=== PATIENT | male | born 1955 | race Hispanic/Latino ===

== ENCOUNTER 2017-06-29 23:42 | Observation (INO) | payer MEDICARE, OTHER ==
[2017-06-29 23:57] VITALS: BMI 21.7
--- NOTE | 2017-06-30 00:09 | ED PDOC ---
Arrival/HPI - General Time Seen by Provider: 06/29/17 23:44 Historian: Patient, Family - History of Present Illness Narrative History of Present Illness (Text): 06/30/17 00:06 Roberto Antoine is a 62 year old male, whose past medical history includes paraplegia, Burkitt's lymphoma, hypertension, GERD, renal failure, obstructive failure, anemia, depression, and anxiety, who presents to the emergency department brought in by EMS complaining of chest pain. Relative states patient began complaining of mid-sternal chest pain at approximately 22:40 tonight. Patient denies any fever, chills, shortness of breath, abdominal pain, nausea, vomiting, diarrhea, urinary symptoms, back pain, neck pain, headache, dizziness , or any other complaints. Symptom Onset: Gradual Symptom Course: Unchanged Activities at Onset: Light Context: Home Past Medical History - Provider Review Nursing Documentation Reviewed: Yes - Infectious Disease Hx of Infectious Diseases: None - Tetanus Immunization Tetanus Immunization: Unknown - Cardiac Hx Cardiac Disorders: Yes Hx Hypertension: Yes - Pulmonary Hx Respiratory Disorders: Yes Hx Sleep Apnea: Yes - Neurological Hx Neurological Disorder: No - Renal Hx Renal Disorder: Yes Hx Pyelonephritis: Yes Hx Renal Failure: Yes - Hematological/Oncological Hx Blood Transfusions: No Hx Blood Transfusion Reaction: No - Musculoskeletal/Rheumatological Hx Musculoskeletal Disorders: Yes Hx Arthritis: Yes Hx Gout: Yes Hx Unsteady Gait: Yes Other/Comment: right hand flaccidity and weakness, left foot drop - Gastrointestinal Hx Gastroesophageal Reflux: Yes - Genitourinary/Gynecological Other/Comment: solorio catheter in from son - Psychiatric Hx Psychophysiologic Disorder: Yes Hx Anxiety: Yes Hx Depression: Yes Hx Substance Use: No Other/Comment: insomnia - Past Surgical History Past Surgical History: Non-Contributing - Anesthesia Hx Anesthesia Reactions: No Hx Malignant Hyperthermia: No - Suicidal Assessment Feels Threatened In Home Enviroment: No Family/Social History - Physician Review Nursing Documentation Reviewed: Yes Family/Social History: Unknown Family HX Smoking Status: Never Smoked Hx Alcohol Use: No Hx Substance Use: No Hx Substance Use Treatment: No Allergies/Home Meds Allergies/Adverse Reactions: Allergies baclofen Allergy (Verified 06/30/17 00:24) RASH zolpidem [From Ambien] Allergy (Verified 06/30/17 00:24) RASH Home Medications: Home Meds Medication Instructions Recorded Confirmed Bupropion Hydrochloride [Bupropion 150 mg PO DAILY 10/10/12 11/27/12 Hydrochloride Xl] Acetaminophen [Tylenol] 650 mg PO Q4 PRN 11/27/12 11/27/12 Amlodipine Besylate 5 mg PO DAILY 11/27/12 11/27/12 Carvedilol 25 mg PO DAILY 11/27/12 11/27/12 Clonazepam 1 mg PO HS 11/27/12 11/27/12 Gabapentin 100 mg PO HS 11/27/12 11/27/12 Magnesium Oxide 400 mg PO DAILY 11/27/12 11/27/12 Pantoprazole Sodium [Protonix] 40 mg PO DAILY 11/27/12 11/27/12 Polyethylene Glycol 3350 [Miralax] 11/27/12 11/27/12 Potassium Chloride [K-Dur 20] 20 meq PO DAILY 11/27/12 11/27/12 Sodium Chloride [Sodium Chloride 11/27/12 11/27/12 1000 ml] Vitamin B Complex/Vit C/Folic 1 tab PO DAILY 11/27/12 11/27/12 [Nephro-Sharonda Tab] traZODone [Desyrel] 50 mg PO HS PRN 11/27/12 11/27/12 Review of Systems - Physician Review All systems were reviewed & negative as marked: Yes - Review of Systems Constitutional: Normal. absent: Fevers Eyes: Normal ENT: Normal Respiratory: Normal. absent: SOB, Cough Cardiovascular: Chest Pain Gastrointestinal: Normal. absent: Abdominal Pain, Diarrhea, Nausea, Vomiting Genitourinary Male: Normal. absent: Dysuria, Frequency, Hematuria, Urinary Output Changes Musculoskeletal: Normal. absent: Back Pain, Neck Pain Skin: Normal. absent: Rash Neurological: Normal. absent: Headache, Dizziness Endocrine: Normal Hemo/Lymphatic: Normal Psychiatric: Normal Physical Exam Vital Signs Reviewed: Yes Vital Signs Temp Pulse Resp BP Pulse Ox 06/30/17 02:44 83 17 101/63 100 06/30/17 00:17 98.7 F 87 18 86/41 L 99 Temperature: Afebrile Blood Pressure: Normal Pulse: Regular Respiratory Rate: Normal Appearance: Positive for: Well-Appearing, Non-Toxic, Comfortable Pain Distress: None Mental Status: Positive for: Alert and Oriented X 3 - Systems Exam Head: Present: Atraumatic, Normocephalic Pupils: Present: PERRL Extroacular Muscles: Present: EOMI Conjunctiva: Present: Normal Mouth: Present: Moist Mucous Membranes Neck: Present: Normal Range of Motion Respiratory/Chest: Present: Clear to Auscultation, Good Air Exchange. No: Respiratory Distress, Accessory Muscle Use Cardiovascular: Present: Regular Rate and Rhythm, Normal S1, S2. No: Murmurs Abdomen: No: Tenderness, Distention, Peritoneal Signs Back: Present: Normal Inspection Upper Extremity: No: Cyanosis, Edema Lower Extremity: No: Edema Neurological: Present: GCS=15, CN II-XII Intact, Other (Partial contracture of the extremities) Skin: Present: Warm, Dry, Normal Color. No: Rashes Psychiatric: Present: Alert Medical Decision Making ED Course and Treatment: 06/30/17 00:06 Impression: 62 year old male complaining of mid-sternal chest pain since 22:40 today. Plan: -- EKG -- Chest X-Ray -- Labs, cardiac enzymes -- Reassess and disposition Progress Notes: Reviewed EKG, NSR at 85 bpm. Non-specific T wave changes. 06/30/17 01:44 Case discussed with medical equipment technician telephone solicitor supervisor, who is aware and agrees with plan. Case discussed with Dr. Littlejohn, paediatric thoracic physician, who is aware and agrees to evaluate pt. 06/30/17 01:52 Chest X-Ray reviewed, shows no acute processes. 06/30/17 02:[address] Littlejohn, who evaluated pt in ER. States pt can go to Telemetry. 06/30/17 03:[address] Mary Ann Grossman, who is aware and agrees with plan. Accepts pt in to his service. Pt will go to Telemetry observation for chest pain. Requests Dr. Hubbard and Dr. Hand on consult. - Lab Interpretations Lab Results: 06/30/17 00:35 06/30/17 00:35 Lab Results 06/30/17 00:35: WBC 21.3 H, RBC 2.44 L, Hgb 8.5 L, Hct 24.6 L, MCV 100.8, MCH 34.8, MCHC 34.6, RDW 13.6, Plt Count 133, MPV 8.9 06/30/17 00:35: Sodium 142, Potassium 4.1, Chloride 98, Carbon Dioxide 25, Anion Gap 23 H, BUN 122 H*, Creatinine 6.1 H, Est GFR ( Amer) 11, Est GFR (Non-Af Amer) 9, Random Glucose 115 H, Calcium 9.6, Total Bilirubin 0.6, AST 25, ALT 18, Alkaline Phosphatase 76, Lactate Dehydrogenase 245 L, Total Creatine Kinase 28 L, Troponin I < 0.01 D, Total Protein 7.0, Albumin 3.5, Globulin 3.4, Albumin/Globulin Ratio 1.0 L 06/30/17 00:35: PT 11.9, INR 1.04, APTT 28.1 I have reviewed the lab results: Yes - RAD Interpretation Radiology Orders: 06/30/17 00:11 CHEST PORTABLE [RAD] Stat Can Coverer: ED Physician - EKG Interpretation Interpreted by ED Physician: Yes Type: 12 lead EKG - Medication Orders Current Medication Orders: Discontinued Medications Aspirin (Aspirin) 325 mg PO ONCE STA Stop: 06/30/17 00:13 Last Admin: 06/30/17 00:38 Dose: Sodium Chloride (Sodium Chloride 0.9%) 500 mls @ 500 mls/hr IV .Q1H STA Stop: 06/30/17 01:35 Last Admin: 06/30/17 01:03 Dose: 500 mls/hr eMAR Start Stop Document 06/30/17 01:03 IT (Rec: 06/30/17 01:03 IT [id number]) Intravenous Solution Start Date 06/30/17 Start Time 01:03 End Date 06/30/17 Sodium Chloride (Sodium Chloride 0.9%) 500 mls @ 999 mls/hr IV .Q31M STA Stop: 06/30/17 02:43 Last Admin: 06/30/17 03:17 Dose: 999 mls/hr eMAR Start Stop Document 06/30/17 03:17 IT (Rec: 06/30/17 03:17 IT [id number]) Intravenous Solution Start Date 06/30/17 Start Time 03:17 End Date 06/30/17 Morphine Sulfate (Morphine) 2 mg IVP STAT STA Stop: 06/30/17 00:13 Last Admin: 06/30/17 00:38 Dose: - Scribe Statement The provider has reviewed the documentation as recorded by the Curt Mi Provider Scribe Attestation: All medical record entries made by the Scribe were at my direction and personally dictated by me. I have reviewed the chart and agree that the record accurately reflects my personal performance of the history, physical exam, medical decision making, and the department course for this patient. I have also personally directed, reviewed, and agree with the discharge instructions and disposition. Disposition/Present on Arrival - Present on Arrival Any Indicators Present on Arrival: No History of DVT/PE: No History of Uncontrolled Diabetes: No Urinary Catheter: Yes History of Decub. Ulcer: No History Surgical Site Infection Following: None - Disposition Have Diagnosis and Disposition been Completed?: Yes Diagnosis: Chest pain Disposition: HOSPITALIZED Disposition Time: 03:24 Patient Plan: Observation Condition: STABLE Discharge Instructions (ExitCare): Chest Pain (ED)
[2017-06-30] MEDS ORDERED: Morphine 2 mg/ml ISec IVP STA (00:12)
[2017-06-30] MEDS ORDERED: Sodium Chloride 0.9% 500 ML IV STA ×2 (00:36→02:13)
[2017-06-30 00:49] LABS: HEMOGLOBIN 8.5 g/dL (14.0-18.0); MEAN CELL VOLUME 100.8 fl (80.0-105.0); MEAN CORPUSCULAR HEMOGLOBIN 34.8 pg (25.0-35.0); MEAN CORPUSCULAR HGB CONC 34.6 g/dl (31.0-37.0); MEAN PLATELET VOLUME 8.9 fl (7.0-11.0); RBC 2.44 10^6/uL (3.5-6.1); RED CELL DISTRIBUTION WIDTH 13.6 % (11.5-14.5); WHITE BLOOD COUNT 21.3 10^3/ul (4.5-11.0)
[2017-06-30 01:05] LABS: INR 1.04 (0.93-1.08); PARTIAL THROMBOPLASTIN TIME 28.1 Seconds (25.1-36.5); PROTHROMBIN TIME 11.9 SECONDS (9.4-12.5)
[2017-06-30 01:12] LABS: ALBUMIN 3.5 g/dL (3.0-4.8); ALT/SGPT 18 U/L (7-56); AST/SGOT 25 U/L (17-59); CALCIUM 9.6 mg/dL (8.4-10.5); GFR AFRICAN-AMERICAN 11; GFR NON-AFRICAN AMERICAN 9
[2017-06-30 01:22] LABS: BLOOD UREA NITROGEN 122 mg/dL (7-21)
[2017-06-30 01:40] LABS: TROPONIN I < 0.01 ng/mL
--- NOTE | 2017-06-30 02:25 | CP.PCM.CON ---
<VivienViki - Last Filed: 06/30/17 03:53> History of Present Illness - History of Present Illness History of Present Illness: PGY-[address] Littlejohn ICU consult: Hypotension Mr Roberto Antoine is a 62 year old male, whose past medical history includes Burkitt's lymphoma diagnosed 2012, complicated by shingles infection that rendered patient paraplegia, neurogenic bowel and bladder requiring chronic solorio, progressive CKD, HTN, anemia, who presents to the emergency department brought in by EMS complaining of chest pain. Pt was resting in bed and took his night time medicine. At 22:40 tonight, he suddenly felt 9/10 sharp pain on L mid -upper chest. No pain radiation. Changing position or inhalation/exhalation did not alleviate or worsen the pain. EMS arrived and gave pt ASA 324mg x 1 and 1 tab of sublingual nitroglycerin tablet. In the ED, he received morphine 2mg and chest pain was gone. He was found to be hypotensive in ED with SBP 80s. He received 500cc NS bolus and SBP rises to 107. Per , pt daily urine output around 2100cc. His creatinine usually around 6. Pt has chronic sacral/gluteal and foot ulcers cared by visiting nurse. Pt did not require any antibiotics recently. wishes to transfer to [facility] if possible. ROS: Denies any fever, chills, dizziness, diaphoresis, shortness of breath, abdominal pain, nausea, vomiting, diarrhea, urinary symptoms, back pain, neck pain, headache, dizziness. 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 FH: heart conditions SH: Live with , son, and teenager granddaughter in [place] visiting nurse daily for bowel regimen and wound care former smoker, quit 37 years ago Denies ETOH/drug All: baclofen, zolpidem Past Patient History - Infectious Disease Hx of Infectious Diseases: None - Tetanus Immunizations Tetanus Immunization: Unknown - Past Social History Smoking Status: Never Smoked - CARDIAC Hx Cardiac Disorders: Yes Hx Hypertension: Yes - PULMONARY Hx Respiratory Disorders: Yes Hx Sleep Apnea: Yes - NEUROLOGICAL Hx Neurological Disorder: No - HEENT Hx HEENT Problems: No - RENAL Hx Chronic Kidney Disease: Yes Hx Pyelonephritis: Yes Hx Renal Failure: Yes - ENDOCRINE/METABOLIC Hx Endocrine Disorders: No - HEMATOLOGICAL/ONCOLOGICAL Hx Blood Transfusions: No Hx Blood Transfusion Reaction: No - INTEGUMENTARY Hx Dermatological Problems: No - MUSCULOSKELETAL/RHEUMATOLOGICAL Hx Musculoskeletal Disorders: Yes Hx Arthritis: Yes Hx Gout: Yes Hx Unsteady Gait: Yes Other/Comment: right hand flaccidity and weakness, left foot drop - GASTROINTESTINAL Hx Gastroesophageal Reflux: Yes - GENITOURINARY/GYNECOLOGICAL Other/Comment: solorio catheter in from son - PSYCHIATRIC Hx Psychophysiologic Disorder: Yes Hx Anxiety: Yes Hx Depression: Yes Hx Substance Use: No Other/Comment: insomnia - SURGICAL HISTORY Hx Surgeries: No Other/Comment: amp rt 5th toe/tor left foot - ANESTHESIA Hx Anesthesia Reactions: No Hx Malignant Hyperthermia: No Meds Allergies/Adverse Reactions: Allergies Allergy/AdvReac Type Severity Reaction Status Date / Time baclofen Allergy RASH Verified 06/30/17 00:24 zolpidem [From Ambien] Allergy RASH Verified 06/30/17 00:24 - Medications Medications: Current Medications Sodium Chloride (Sodium Chloride 0.9%) 500 mls @ 999 mls/hr IV .Q31M STA Stop: 06/30/17 02:43 Physical Exam - Constitutional Appears: No Acute Distress Additional comments: pale - Head Exam Head Exam: ATRAUMATIC, NORMAL INSPECTION, NORMOCEPHALIC - Eye Exam Eye Exam: EOMI, Normal appearance, PERRL. absent: Scleral icterus - ENT Exam ENT Exam: Mucous Membranes Dry - Neck Exam Additional comments: supple. No JVD - Respiratory Exam Respiratory Exam: Clear to Auscultation Bilateral. absent: Rales, Rhonchi, Wheezes - Cardiovascular Exam Cardiovascular Exam: REGULAR RHYTHM, +S1, +S2. absent: Systolic Murmur (No frictional rub) - GI/Abdominal Exam GI & Abdominal Exam: Normal Bowel Sounds, Soft. absent: Tenderness Additional comments: No suprapubic tenderness - Extremities Exam Extremities exam: Negative for: pedal edema Additional comments: in dressing and multipodus boots - Back Exam Additional comments: 4x4 [address] at sacral area - Neurological Exam Neurological exam: Alert, Oriented x3 - Psychiatric Exam Psychiatric exam: Normal Affect, Normal Mood - Skin Skin Exam: Dry, Warm Results - Vital Signs Recent Vital Signs: Last Vital Signs Temp 98.7 F 06/30/17 00:17 Pulse 87 06/30/17 00:17 Resp 18 06/30/17 00:17 BP 86/41 L 06/30/17 00:17 Pulse Ox 99 06/30/17 00:17 - Labs Result Diagrams: 06/30/17 00:35 06/30/17 00:35 Labs: Laboratory Results - last 24 hr 06/30/17 06/30/17 06/30/17 00:35 00:35 00:35 WBC 21.3 H RBC 2.44 L Hgb 8.5 L Hct 24.6 L MCV 100.8 MCH 34.8 MCHC 34.6 RDW 13.6 Plt Count 133 MPV 8.9 PT 11.9 INR 1.04 APTT 28.1 Sodium 142 Potassium 4.1 Chloride 98 Carbon Dioxide 25 Anion Gap 23 H BUN 122 H* Creatinine 6.1 H Est GFR ( Amer) 11 Est GFR (Non-Af Amer) 9 Random Glucose 115 H Calcium 9.6 Total Bilirubin 0.6 AST 25 ALT 18 Alkaline Phosphatase 76 Lactate Dehydrogenase 245 L Total Creatine Kinase 28 L Troponin I < 0.01 D Total Protein 7.0 Albumin 3.5 Globulin 3.4 Albumin/Globulin Ratio 1.0 L Assessment & Plan - Assessment and Plan (Free Text) Plan: Mr Roberto Antoine is a 62 year old male, whose past medical history includes Burkitt's lymphoma diagnosed 2012, complicated by shingles infection that rendered patient paraplegia, neurogenic bowel and bladder requiring chronic solorio, progressive CKD, HTN, anemia, was brought in by chest pain. EMS gave ASA 324mg x 1 and 1 tab of sublingual nitroglycerin tablet, but did not relief the pain. In the ED, he received morphine 2mg and chest pain was gone. He was found to be hypotensive in ED with SBP 80s. He received 500cc NS bolus and SBP rises to 107. He was found to have leukocytosis 21.3, BUN 122. Creatinine 6.1, but Na , K, Bicarb normal. He is AAOx3, no frictional rub on exam. Hypotension likely from sublingual nitroglycerin - resolved - Patient is hemodynamically stable. He does not require ICU care. Please re- consult as needed. - Repeat BNP Azotemia with elevated creatinine ? OSCAR on CKD - BUN/Cre about 20:1 suggestive of dehydration as pre-renal cause of possible OSCAR - Will give NS bolus and maintain on NS 100cc - CKD Managed per primary team Chest pain r/o ACS - first trops negative. Follow next 2 trops - EKG, NSR at 85 bpm. Non-specific T wave changes. - Cardiology consult Leukocytosis, chronic from lymphoma vs infection (UTI vs skin) Anemia, likely chronic - follow up on septic workup - receive ceftriaxone x 1 - managed per primary team - air mattress - ID consult DVT prophylasix -heparin SC q8 <Annetta PATHAK,Phong - Last Filed: 06/30/17 06:21> Meds - Medications Medications: Current Medications Heparin Sodium (Porcine) (Heparin) 5,000 units SC Q8 KEITH PRN Reason: Protocol Last Admin: 06/30/17 06:11 Dose: 5,000 units Sodium Chloride (Sodium Chloride 0.9%) 1,000 mls @ 100 mls/hr IV .Q10H STA Stop: 06/30/17 13:24 Ceftriaxone Sodium (Rocephin 1 Gram Ivpb) 1 gm in 100 mls @ 100 mls/hr IVPB DAILY KEITH PRN Reason: Protocol Results - Vital Signs Recent Vital Signs: Last Vital Signs Temp 98.1 F 06/30/17 05:55 Pulse 82 06/30/17 05:55 Resp 19 06/30/17 05:55 BP 111/73 06/30/17 05:55 Pulse Ox 100 06/30/17 05:55 - Labs Result Diagrams: 06/30/17 00:35 06/30/17 00:35 Labs: Laboratory Results - last 24 hr 06/30/17 04:20 Urine Color Straw Urine Appearance Turbid Urine pH 8.0 Ur Specific [place] 1.015 Urine Protein 100 H Urine Glucose (UA) Negative Urine Ketones Negative Urine Blood Large H Urine Nitrate Positive H Urine Bilirubin Negative Urine Urobilinogen 0.2 Ur Leukocyte Esterase Moderate H Urine RBC 5 - 10 Urine WBC 25 - 30 Ur Epithelial Cells 6 - 8 Urine Bacteria Large Urine Other Mucus Attending/Attestation - Attestation I have personally seen and examined this patient.: Yes I have fully participated in the care of the patient.: Yes I have reviewed all pertinent clinical information: Yes Notes (Text): -I agree with the above ICU consult note completed by the resident physician. -Please feel free to re-consult if the patient's condition deteriorates. -Thank you.
[2017-06-30] MEDS ORDERED: cefTRIAXone 1 gm 1 GM/100 ML BAG IV STA (03:24)
[2017-06-30] MEDS ORDERED: Sodium Chloride 0.9% 1,000 ML IV STA ×2 (03:25→03:26)
[2017-06-30 03:29] LABS: VENOUS BLOOD GAS BASE EXCESS 2.4 mmol/L (0.0-2.0); VENOUS BLOOD GAS PO2 129 mm/Hg (30-55); VENOUS BLOOD PH 7.45 (7.32-7.43)
[2017-06-30 05:11] LABS: URINE BILIRUBIN NEGATIVE (NEGATIVE); URINE BLOOD LARGE (NEGATIVE); URINE GLUCOSE (UA) NEGATIVE (NEGATIVE); URINE LEUKOCYTE ESTERASE MODERATE Leu/uL (NEGATIVE); URINE PROTEIN 100 mg/dL (<30 mg/dL); URINE UROBILINOGEN 0.2 E.U./dL (<1 E.U./dL)
[2017-06-30 05:14] LABS: URINE APPEARANCE TURBID (CLEAR); URINE COLOR STRAW (YELLOW)
[2017-06-30 05:31] LABS: URINE BACTERIA LARGE (NEG); URINE WBC 25 - 30 /hpf (0-6)
[2017-06-30] MEDS ORDERED: Barium Sulfate Susp 2.1% w/v, 2.0% w/w 450 mL Bottle PO ONE (07:48)
--- NOTE | 2017-06-30 08:23 | RAD ---
HISTORY: fever COMPARISON: 11/27/2012 FINDINGS: LUNGS: No active pulmonary disease. PLEURA: No significant pleural effusion identified, no pneumothorax apparent. CARDIOVASCULAR: Normal. OSSEOUS STRUCTURES: No significant abnormalities. VISUALIZED UPPER ABDOMEN: Normal. OTHER FINDINGS: None. IMPRESSION: No active disease.
--- NOTE | 2017-06-30 09:38 | CON ---
DATE: 06/30/2017 LOCATION: The patient is seen earlier today in room 269, bed 2. CHIEF COMPLAINT: Chest pain, which is resolved at this time, x1 day duration. HISTORY OF PRESENT ILLNESS: The patient is a 62-year-old male with a history of obesity with a BMI of 30, history of anxiety, depression, hypertension, Burkitt lymphoma. The patient is paraplegic. 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 Infectious Disease consultation requested. The patient states that his chest pain is now resolved. He does not have any abdominal pain, diarrhea or constipation. He does have the chronic Suazo catheter. He is bedridden. He is paralyzed and he did have an episode of hypotension in the emergency room. The systolic blood pressure was down to 80, but responded to bolus of fluids. REVIEW OF SYSTEMS: Reveals 12-point review of systems performed. No fevers and chills. No diaphoresis. No chest pain now. He did have chest pain earlier. No abdominal pain, nausea, vomiting, diarrhea or constipation. PAST MEDICAL HISTORY: Significant for Burkitt lymphoma diagnosed in 2012 and the patient had also had zoster and neurogenic bladder and requiring chronic Suazo catheter. The patient also has a chronic sacral ulcer and chronic foot pressure ulcers bilaterally and history of kidney disease, obstructive uropathy. The patient had an MSSA bacteremia, mixed connective tissue and obstructive sleep apnea and hypertension, depression, anxiety and obesity. PAST SURGICAL HISTORY: Significant for a kidney biopsy and cystoscopy. ALLERGIES: THE PATIENT IS ALLERGIC TO BACLOFEN AND ZOLPIDEM. MEDICATIONS AT HOME: Include the patient to be on trazodone, vitamins, potassium, Protonix, magnesium, gabapentin, clonazepam, carvedilol, bupropion, amlodipine and Tylenol. PHYSICAL EXAMINATION: GENERAL: On exam, the patient is in bed, in no acute distress and what appears to be comfortable. VITAL SIGNS: Temperature of 98 and pulse of 84, respiratory rate of 17 and room saturation at 100% on room air and blood pressure is 115/60. He did go down to 86/41. LABORATORY DATA: The patient's chest x-ray report is not available. However, reviewing it myself, it looks to be unremarkable. Emergency room chart is reviewed. Dr. Littlejohn's consultation is also reviewed. Blood cultures have been sent. Urine cultures have been sent. Procalcitonin has been sent. The patient was started on ceftriaxone by Dr. Littlejohn. The patient's creatinine is 6.1 and last creatinine was 2.7. The urinalysis reveals 25-30 wbc's, large bacteria. ASSESSMENT AND PLAN: A 62-year-old male with obesity, anxiety, depression, Burkitt lymphoma, paraplegic, history of zoster, gastroesophageal reflux disease, obstructive sleep apnea, mononeuritis multiplex, kidney injury, obstructive neuropathy and history of sensitive staph aureus bacteremia in 2012 and enterococcus urinary tract infection also in 2012, now presenting with leukocytosis and the patient is on beta-sarah and unable to [place] tachycardia with #1 is severe sepsis with transient hypotension, responding to fluids with urine as the source and sacral ulcer and bilateral heel ulcers. We will start the patient on meropenem. We must rule out gastrointestinal pathology in addition to genitourinary. Discontinue the ceftriaxone. Order a CT scan of the abdomen and pelvis and we will follow closely with you. Order a CAT scan of the abdomen and pelvis with p.o. contrast. We will follow with you. The patient had a human immunodeficiency virus test in 2012, which was negative. Rolly Hand MD
[2017-06-30] MEDS: Meropenem 500 MG in Sodium Chloride 0.9% 50 ML IVPB SCH ×2 (09:57→15:28)
[2017-06-30] MEDS ORDERED: cefTRIAXone 1 gm 1 GM/100 ML BAG IVPB SCH (10:00)
[2017-06-30 10:27] LABS: HEMOGLOBIN 9.8 g/dL (14.0-18.0); LYMPH % 17.8 % (22.0-35.0); MEAN CELL VOLUME 101.7 fl (80.0-105.0); MEAN CORPUSCULAR HEMOGLOBIN 34.1 pg (25.0-35.0); MEAN CORPUSCULAR HGB CONC 33.6 g/dl (31.0-37.0); MEAN PLATELET VOLUME 8.8 fl (7.0-11.0); RBC 2.87 10^6/uL (3.5-6.1); RED CELL DISTRIBUTION WIDTH 13.7 % (11.5-14.5); WHITE BLOOD COUNT 19.2 10^3/ul (4.5-11.0)
[2017-06-30 10:28] LABS: BASO # 0.04 K/mm3 (0.0-2.0); BASO % 0.2 % (0.0-3.0); EOS # 0.4 (0.0-0.7); EOS % 1.8 % (1.5-5.0); GRAN # 14.17 (1.4-6.5); LYMPH # 3.4 (1.2-3.4); MONO # 1.2 (0.1-0.6); MONO % 6.2 % (1.0-6.0)
[2017-06-30 10:38] LABS: ALBUMIN 3.7 g/dL (3.0-4.8); ALT/SGPT 20 U/L (7-56); AST/SGOT 21 U/L (17-59); BLOOD UREA NITROGEN 117 mg/dL (7-21); CALCIUM 9.6 mg/dL (8.4-10.5); GFR AFRICAN-AMERICAN 12; GFR NON-AFRICAN AMERICAN 10; HDL CHOLESTEROL 27 mg/dL (29-60)
[2017-06-30 10:49] LABS: LDL CHOLESTEROL 62 mg/dL (0-129); TROPONIN I < 0.01 ng/mL
--- NOTE | 2017-06-30 12:28 | CT ---
PROCEDURE: CT Abdomen and Pelvis without intravenous contrast HISTORY: wbc of 21k COMPARISON: None. TECHNIQUE: Without contrast. Contrast dose: Radiation dose: Total exam DLP = 859 mGy-cm. This CT exam was performed using one or more of the following dose reduction techniques: Automated exposure control, adjustment of the mA and/or kV according to patient size, and/or use of iterative reconstruction technique. FINDINGS: LOWER THORAX: Unremarkable. LIVER: Unremarkable. No gross lesion or ductal dilatation. GALLBLADDER AND BILE DUCTS: Unremarkable. PANCREAS: Unremarkable. No gross lesion or ductal dilatation. SPLEEN: Unremarkable. ADRENALS: Unremarkable. No mass. KIDNEYS AND URETERS: There bilateral ureteral stents. There is no evidence of hydronephrosis. Metallic embolization coils are seen in the right kidney. VASCULATURE: Unremarkable. No aortic aneurysm. BOWEL: Unremarkable. No obstruction. No gross mural thickening. APPENDIX: Unremarkable. Normal appendix. PERITONEUM: Unremarkable. No free fluid. No free air. LYMPH NODES: Unremarkable. No enlarged lymph nodes. BLADDER: The bladder is decompressed by Suazo catheter REPRODUCTIVE: Unremarkable. BONES: No acute fracture. OTHER FINDINGS: None. IMPRESSION: No acute intra-abdominal findings
[2017-06-30] MEDS: Magnesium Oxide 400 mg Tab UD PO SCH (13:08)
[2017-06-30] MEDS: Pantoprazole 40 mg EC Tab PO SCH (13:08)
[2017-06-30] MEDS: buPROPion 150 mg/24 Hours XL Tab PO SCH (13:09)
[2017-06-30] MEDS: Potassium Chloride 20 mEq ER Tab PO SCH (13:09)
[2017-06-30] MEDS: Multivitamin Vitamin B Complex (Nephro-Vite) Tab PO SCH (13:09)
[2017-06-30 13:51] VITALS: O2SAT 99
--- NOTE | 2017-06-30 15:03 | PN ---
DATE: 06/30/2017 REASON FOR CONSULTATION AND FOLLOWUP: Cardiac evaluation, chest pain. BRIEF CLINICAL HISTORY: A 62-year-old male with past medical history significant for paraplegia, Burkitt lymphoma, hypertension, gastroesophageal reflux, chronic renal insufficiency with baseline creatinine of 3, anemia, depression, and anxiety, used to go to the [facility], brought here because of feeling very sharp left-sided chest pain, between 10:00 and 11:00 midnight. The patient denies any fever or chills, but complains of mild cough. PAST MEDICAL HISTORY: Significant for Burkitt lymphoma, status post chemo, diagnosed in 2012, complicated with shingle infection; history of paraplegia; history of bedsores; deep sacral decubitus; neurogenic bowel and bladder requiring chronic Suazo indwelling catheter; chronic sacral ulcers; progressive CKD; hypertension; sleep apnea; anemia; gout; gastroesophageal reflux. 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 Difficulty in talking because of paraplegia. SOCIAL HISTORY: Denies smoking. Denies any history of alcohol abuse. Lives with and home health care visits at home. ALLERGIES: ALLERGIC TO BACLOFEN AND AMBIEN. CURRENT MEDICATIONS: The patient is taking Desyrel, vitamin B, potassium, carvedilol, hydrochlorothiazide, and amlodipine. REVIEW OF SYSTEMS: As per HPI. PHYSICAL EXAMINATION: VITAL SIGNS: Temperature afebrile, heart rate 80, blood pressure 112/62. HEENT: PERRLA. Extraocular muscles intact. NECK: Supple. No carotid bruit or thyromegaly. CHEST: Clear to auscultation. HEART: S1 and S2, regular. ABDOMEN: Soft. EXTREMITIES: Clubbing and cyanosis negative. Right upper extremity contracture with wrist and hand is flexed and contracture developed, history of deep sacral decubitus. LABORATORY DATA: Blood workup as follows: WBC 21.3, hemoglobin , hematocrit 24.7, platelet count 133. Chemistry shows sodium 142, potassium 4, chloride 98, carbon dioxide 25, anion gap of 23, BUN 123, creatinine 6.1. Troponin I, 0.01, negative. EKG, a strip available from ambulance shows normal sinus, no acute ST-T changes noted. Repeat EKG done that shows normal sinus, poor R-R progression, no acute ST-T changes noted. IMPRESSION: Sharp chest pain, atypical. EKG, does not appear any acute ST-T changes. History of chronic renal insufficiency, baseline creatinine is 6; history of Burkitt lymphoma, history of chemo; history of paraplegia; history of deep sacral decubitus; bedridden; paraplegic; bowel and bladder incontinence; chronic kidney disease; hypertension; anemia. RECOMMENDATIONS: Follow up serial CPK and troponin. Get an echo to assess LV function. Further recommendations depending on the course. If remain troponin flat, we will treat medically, add on beta-sarah, aspirin, hem/onc evaluation and followup. Thank you, Dr. Grossman, for providing us the opportunity in taking care of the patient, Arash. We will get another CPK and troponin now and after 6 hours. We will get echo as mentioned and considering the patient's elevated WBC, rule out infection with sacral decubitus. Continue broad-spectrum antibiotics. Continue DVT prophylaxis. Continue baby aspirin. Continue low-dose beta-sarah. Overall, the patient's condition is critical. Long-term prognosis is guarded. We will follow with you. We will repeat the blood workup in the morning. A stool guaiac to rule out any ongoing blood loss. Jerome Perea MD
--- NOTE | 2017-06-30 17:50 | CARD ---
APPROVED REPORT EXAM: Two-dimensional and M-mode echocardiogram with Doppler and color Doppler. INDICATION Chest Pain 2D DIMENSIONS Left Atrium (2D)3.6 (1.6-4.0cm)IVSd1.1 (0.7-1.1cm) LVDd4.1 (3.9-5.9cm)PWd1.1 (0.7-1.1cm) LVDs2.9 (2.5-4.0cm)FS (%) 29.4 % LVEF (%)56.9 (>50%) M-Mode DIMENSIONS Aortic Root3.80 (2.2-3.7cm)Aortic Cusp Exc.1.80 (1.5-2.0cm) Aortic Valve AoV Peak Leyzeimo728.0cm/sAoV VTI33.3cmAO Peak GR.10mmHg AO Mean GR.6mmHg Mitral Valve MV E Bsucbhtg92.3cm/sMV A Jurwtmac10.8cm/sE/A ratio1.0 TDI Lateral E' Peak V15.80cm/sMedial E' Peak V8.77cm/sE/Lateral E'6.0 E/Medial E'10.8 Pulmonary Valve PV Peak Cgblexfe17.8cm/sPV Peak Grad.3mmHg Tricuspid Valve TR Peak Vqsbtlip451kx/sRAP [id number] Peak Gr.24mmHg [id number] LEFT VENTRICLE The left ventricle is normal size. There is normal left ventricular wall thickness. The left ventricular function is normal.EF-55-60% There is normal LV segmental wall motion. Transmitral Doppler flow pattern is Grade III-reversible restrictive diastolic dysfunction. No left ventricle thrombus noted on this study. There is no ventricular septal defect visualized. There is no left ventricular aneurysm. There is no mass noted in the left ventricle. RIGHT VENTRICLE The right ventricle is normal size. There is normal right ventricular wall thickness. The right ventricular systolic function is normal. ATRIA The left atrium size is normal. The right atrium size is normal. The interatrial septum is intact with no evidence for an atrial septal defect. AORTIC VALVE The aortic valve is thickened but opens well. No aortic regurgitation is present. There is no aortic valvular stenosis. There is no aortic valvular vegetation. MITRAL VALVE The mitral valve is thickened but opens well. Mitral annular calcification is mild. Mitral regurgitation is trace. There is no mitral valve stenosis. There is no evidence of mitral valve prolapse. TRICUSPID VALVE The tricuspid valve leaflets are thickened , but open well. There is trace tricuspid regurgitation.RVSP-34 mmof Hg. There is no tricuspid valve stenosis. There is no tricuspid valve prolapse or vegetation. PULMONIC VALVE The pulmonary valve is normal in structure. There is no pulmonic valvular regurgitation. There is no pulmonic valvular stenosis. GREAT VESSELS The aortic root is normal in size. The ascending aorta is normal in size. The pulmonary artery is normal. The IVC is normal in size and collapses >50% with inspiration. PERICARDIAL EFFUSION There is no pleural effusion. There is no pericardial effusion. <Conclusion> Normal chamber Size. EF-55-60% Trace MR/TR RVSP-34 mmof Hg. No Vegetatiomn or thrombus noted
[2017-06-30 18:01] LABS: TROPONIN I < 0.01 ng/mL
--- NOTE | 2017-06-30 21:55 | CARD ---
APPROVED REPORT EKG Measurement Heart [id number] <Conclusion> Normal sinus rhythm Low voltage QRS Nonspecific T wave abnormality Abnormal ECG
[2017-07-01] MEDS: Meropenem 500 MG in Sodium Chloride 0.9% 50 ML IVPB SCH ×3 (04:33→15:04)
[2017-07-01 06:44] LABS: BASO # 0.03 K/mm3 (0.0-2.0); BASO % 0.2 % (0.0-3.0); EOS # 0.4 (0.0-0.7); EOS % 2.3 % (1.5-5.0); GRAN # 11.26 (1.4-6.5); GRAN % 70.9 % (50.0-68.0); HEMOGLOBIN 8.2 g/dL (14.0-18.0); LYMPH # 3.4 (1.2-3.4); LYMPH % 21.6 % (22.0-35.0); MEAN CELL VOLUME 100.8 fl (80.0-105.0); MEAN CORPUSCULAR HEMOGLOBIN 34.5 pg (25.0-35.0); MEAN CORPUSCULAR HGB CONC 34.2 g/dl (31.0-37.0); MEAN PLATELET VOLUME 8.8 fl (7.0-11.0); MONO # 0.8 (0.1-0.6); RBC 2.38 10^6/uL (3.5-6.1); RED CELL DISTRIBUTION WIDTH 13.9 % (11.5-14.5); WHITE BLOOD COUNT 15.9 10^3/ul (4.5-11.0)
[2017-07-01 07:11] LABS: BLOOD UREA NITROGEN 108 mg/dL (7-21); CALCIUM 9.4 mg/dL (8.4-10.5); GFR AFRICAN-AMERICAN 12; GFR NON-AFRICAN AMERICAN 10
[2017-07-01 07:12] LABS: TROPONIN I < 0.01 ng/mL
--- NOTE | 2017-07-01 10:31 | CP.PCM.PN ---
Subjective - Date & Time of Evaluation Date of Evaluation: 07/01/17 Time of Evaluation: 06:50 - Subjective Subjective: Awake, lying in bed, no distress, denies chest pain, denies shortness of breath Reason for consultation and follow up: Cardiac evaluation, chest pain, hypertension,sacral ulcer with wound vac Seen and examined by me and Dr. Perea Objective - Vital Signs/Intake and Output Vital Signs (last 24 hours): Temp Pulse Resp BP Pulse Ox 97.6 F 73 18 112/77 99 06/30/17 18:00 06/30/17 22:00 06/30/17 18:00 06/30/17 18:00 06/30/17 12:00 Intake and Output: 07/01/17 07/01/17 06:59 18:59 Intake Total 120 Output Total 1600 Balance -1480 - Medications Medications: Current Medications Acetaminophen (Tylenol 325mg Tab) 650 mg PO Q4 PRN PRN Reason: Pain Last Admin: 07/01/17 01:31 Dose: 650 mg Amlodipine Besylate (Norvasc) 5 mg PO DAILY COUNT INCLUDES THE [facility] Last Admin: 06/30/17 13:08 Dose: 5 mg Aspirin (Aspirin Chewable) 81 mg PO DAILY COUNT INCLUDES THE [facility] Last Admin: 06/30/17 09:55 Dose: 81 mg Bupropion HCl (Wellbutrin Xl) 150 mg PO DAILY COUNT INCLUDES THE [facility] Last Admin: 06/30/17 13:09 Dose: 150 mg Carvedilol (Coreg) 25 mg PO DAILY COUNT INCLUDES THE [facility] Last Admin: 06/30/17 13:09 Dose: 25 mg Clonazepam (Klonopin) 1 mg PO HS COUNT INCLUDES THE [facility] Last Admin: 06/30/17 21:11 Dose: 1 mg Gabapentin (Neurontin) 100 mg PO HS COUNT INCLUDES THE [facility] Last Admin: 06/30/17 21:11 Dose: 100 mg Heparin Sodium (Porcine) (Heparin) 5,000 units SC Q8 KEITH PRN Reason: Protocol Last Admin: 07/01/17 05:46 Dose: 5,000 units Meropenem 500 mg/ Sodium (Chloride) 50 mls @ 100 mls/hr IVPB Q8 COUNT INCLUDES THE [facility] PRN Reason: Protocol Stop: 07/09/17 07:46 Last Admin: 07/01/17 05:46 Dose: Not Given Magnesium Oxide (Mag-Ox) 400 mg PO DAILY COUNT INCLUDES THE [facility] Last Admin: 06/30/17 13:08 Dose: 400 mg Metoprolol Tartrate (Lopressor) 25 mg PO BID COUNT INCLUDES THE [facility] Last Admin: 06/30/17 17:16 Dose: 25 mg Pantoprazole Sodium (Protonix Ec Tab) 40 mg PO DAILY COUNT INCLUDES THE [facility] Last Admin: 06/30/17 13:08 Dose: 40 mg Potassium Chloride (K-Dur 20 Meq Er Tab) 20 meq PO DAILY COUNT INCLUDES THE [facility] Last Admin: 06/30/17 13:09 Dose: 20 meq Trazodone HCl (Desyrel) 50 mg PO HS PRN PRN Reason: Sleep Vitamin B Complex/Vit C/Folic Acid (Nephro-Sharonda) 1 tab PO DAILY COUNT INCLUDES THE [facility] Last Admin: 06/30/17 13:09 Dose: 1 tab - Labs Labs: 07/01/17 05:30 07/01/17 05:30 PT 11.9 SECONDS (9.4-12.5) 06/30/17 00:35 INR 1.04 (0.93-1.08) 06/30/17 00:35 APTT 28.1 Seconds (25.1-36.5) 06/30/17 00:35 - Constitutional Appears: No Acute Distress - Eye Exam Eye Exam: Normal appearance - ENT Exam ENT Exam: Mucous Membranes Moist - Respiratory Exam Respiratory Exam: Decreased Breath Sounds, NORMAL BREATHING PATTERN - Cardiovascular Exam Cardiovascular Exam: +S1, +S2 - GI/Abdominal Exam GI & Abdominal Exam: Soft, Normal Bowel Sounds - Exam Additional comments: solorio catheter for neurogenic bladder - Neurological Exam Neurological Exam: Alert, Awake, Oriented x3 - Psychiatric Exam Psychiatric exam: Normal Affect, Normal Mood - Skin Skin Exam: Normal Color, Warm Additional comments: chronic sacral ulcer with wound VAC Assessment and Plan - Assessment and Plan (Free Text) Assessment: A 62 year old male who was brought to ER due to sharp chest pain on left upper chest non radiating. History of Burkitt's lymphoma diagnosed 2012, complicated by shingles infection that rendered patient paraplegia, neurogenic bowel and bladder requiring chronic solorio, progressive CKD, HTN, anemia, Chronic sacral ulcer,chronic foot pressure ulcer b/l. amputation of last toes,sleep apnea,gout, GERD, insomnia Plan: Atypical chest pain EKG No acute ST-T changes Troponin levels normal ECHO showed normal LVEF 60%, trace MR/TR No chest pain now Leukocytosis, ID on consult, started antibiotics On ASA 81 mg daily, Coreg 25 mg daily,Lopressor 25 mg BID Continue current medications Continue current treatment Will follow up Plan and treatment discussed with Dr. Perea
[2017-07-01] MEDS: buPROPion 150 mg/24 Hours XL Tab PO SCH (10:50)
[2017-07-01] MEDS: Pantoprazole 40 mg EC Tab PO SCH (10:50)
[2017-07-01] MEDS: Multivitamin Vitamin B Complex (Nephro-Vite) Tab PO SCH (10:51)
[2017-07-01] MEDS: Potassium Chloride 20 mEq ER Tab PO SCH (10:51)
[2017-07-01] MEDS: Magnesium Oxide 400 mg Tab UD PO SCH (10:52)
--- NOTE | 2017-07-01 12:21 | HP ---
HISTORY OF PRESENT ILLNESS: The patient is a 62-year-old male, who presents to the emergency room complaining of chest pain. He noted rather sharp left-sided chest pain, which was unrelieved. He denies lightheadedness, palpitations, diaphoresis, abdominal pain, nausea, vomiting, but because of the severity of the pain, he presented to the emergency room. He was evaluated and admitted. PAST MEDICAL HISTORY: He is known to have a past medical history positive for Burkitt lymphoma. He had shingles, which left him a paraplegic. He has a neurogenic bladder and bowel, which requires digital disimpaction on a daily basis. He has a history of coronary artery disease, hypertension and anemia. He was last hospitalized approximately 5 years ago and is followed up at the [facility] and has home nursing care and home health aides. REVIEW OF SYSTEMS: Otherwise unremarkable. SOCIAL HISTORY: He is a nonsmoker, nonalcoholic drinker. ALLERGIES: HE IS KNOWN TO BE ALLERGIC TO BACLOFEN AND ZOLPIDEM, WHICH CAUSED A RASH IN THE PAST. MEDICATIONS: At the time of admission, his medications included bupropion 150 mg daily, Tylenol 650 p.r.n., amlodipine 5 mg daily, Coreg 25 mg daily, clonazepam 1 mg at bedtime, gabapentin 100 mg at bedtime, magnesium oxide 400 mg daily, Protonix 40 mg daily, MiraLax daily, K-Dur 20 mEq daily, Nephro-Sharonda vitamins and Desyrel 50 mg at bedtime. PHYSICAL EXAMINATION: GENERAL: The patient is awake and alert. He is aphasic. Difficult to understand; however, he can control his speech to try to minimize the deficit as much as possible. VITAL SIGNS: His blood pressure is 186/41, heart rate is 87, temperature is 98.7 degrees Fahrenheit. With some IV fluid, his blood pressure came up to 101/63 in the emergency room. HEENT: On physical exam, the head, eyes, ears, nose and throat are unremarkable. NECK: Supple with no lymphadenopathy and no goiter. LUNGS: Clear to auscultation and percussion. HEART: Regular. No murmurs are appreciated. ABDOMEN: Soft and nontender. There is tenderness on palpation of the chest wall anteriorly on the left and the right side. EXTREMITIES: Free of cyanosis, clubbing or edema. He is status post amputation of the right fifth toe. NEUROLOGICAL: There was weakness on the right side noted. LABORATORY DATA: Laboratory studies show the white blood cell count to be elevated at 21.3, hemoglobin and hematocrit are 8.5 and 24.6 respectively, platelet count is 133. Sodium is 142, potassium of 4.1, blood urea nitrogen is 122, creatinine 6.1 and glucose is 115. This is apparently at or near the patient's baseline. The chest x-ray showed no acute disease. EKG showed regular sinus rhythm with nonspecific ST-T wave changes. Examination of the skin showed that the patient does have decubitus ulcers on bilateral buttocks and the sacral area. Troponins are negative x2. IMPRESSION: The patient with chronic renal failure, Burkitt lymphoma, paraplegia, neurogenic bowel and bladder is admitted for observation for chest pain. Troponins to date are negative. EKG is no acute change. The patient will be reevaluated in the morning. Jak Grossman MD
[2017-07-01 14:19] VITALS: BP 95/57; PULSE 72; RESP 19; TEMP 97.7
--- NOTE | 2017-07-01 14:31 | PN ---
DATE: 07/01/2017 SUBJECTIVE: The patient is in bed, in no acute distress, nontoxic. PHYSICAL EXAMINATION: VITAL SIGNS: Temperature is 98, blood pressure is 112/70, respiratory rate of 18. HEENT: Examination of HEENT is unremarkable. NECK: Supple. LUNGS: Have decreased breath sounds. HEART: Normal S1, S2. ABDOMEN: Examination is soft, nontender. LABORATORY DATA: Laboratory examination reveals a white count of 15,900, hemoglobin of 8, platelets of 124. Chemistries reveals a BUN of 108, creatinine of 5.9, procalcitonin 0.33. Urinalysis is noted. Microbiology reveals a gram-negative sandrita in the urine. The blood cultures are negative. Review of orders reveals the patient to be on meropenem. The patient also had an echo. No vegetation or thrombus is noted. ASSESSMENT/PLAN: This is a 62-year-old male seen earlier today in [facility], bed 2 with obesity, body mass index of 30, history of anxiety, depression, hypertension, Burkitt lymphoma. The patient is paraplegic and zoster and neurogenic bladder and chronic Suazo catheter, obstructive sleep apnea. 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 We are waiting for the identification sensitivity of the gram-negative sandrita. The patient's CAT scan of the abdomen and pelvis from yesterday has no acute intraabdominal findings and we will continue the meropenem, day #2 today, pending identification of gram-negative sandrita in the urine. The patient has been afebrile and the white count has improved from 21,000, today is 15,900. We will continue the present course. Rolly Hand MD
--- NOTE | 2017-07-02 04:01 | DS ---
HISTORY OF PRESENT ILLNESS: The patient is a 62-year-old male with Burkitt lymphoma, status post herpes zoster infection, leaving him paraplegic with right-sided flaccidity and a right footdrop. He also has a history of neurogenic bowel and bladder, coronary artery disease, hypertension, anemia, gastroesophageal reflux, status post amputation of the right fifth toe, history of anxiety and depression, who presented to the Emergency Room complaining of a chest pain. His EKG showed regular sinus rhythm with a nonspecific ST-T wave changes. Chest x-ray showed no acute disease. He was observed overnight and his troponins were negative x3. Chronically elevated white blood cell count did come down overnight to 15.9, it was 21.9 on admission. Hemoglobin and hematocrit remain low at 8.2 and 24. BUN and creatinine are 108 and 5.9. This morning his blood pressure is 112/77, heart rate is 70, and he is afebrile. Blood cultures have been negative x2. CAT scan of the abdomen and pelvis was performed and this was essentially negative. He underwent echocardiography which also was negative and had a normal ejection fraction of 55% to 60%. I discussed the case with the patient's last night over the phone and the patient is to be discharged to home this morning. He is to follow up with his physicians at the [facility]. He is also to continue to follow up with his home nursing care and home health aids. FINAL DIAGNOSES: 1. Noncardiac chest pain. 2. Leukocytosis. 3. History of Burkitt lymphoma. 4. History of right-sided hemiplegia. 5. History of neurogenic bladder and bowel. 6. History of anxiety and depression. Jak Grossman MD
== END 2017-07-01 17:00 | disposition home or self-care (01) ==
LOC: ED 23:42 → ERH 06-30 03:28 → 2RNO 06-30 04:47
PROVIDERS: ADMIT Internal Medicine; ATTEND Internal Medicine
DX: A41.9 Sepsis, unspecified organism (principal); B02.8 Zoster with other complications; G82.20 Paraplegia, unspecified; B95.61 Methicillin susceptible Staphylococcus aureus infection as the cause of diseases classified elsewhere; C83.70 Burkitt lymphoma, unspecified site; E66.9 Obesity, unspecified; F41.9 Anxiety disorder, unspecified; G47.00 Insomnia, unspecified; G47.33 Obstructive sleep apnea (adult) (pediatric); G58.7 Mononeuritis multiplex; G81.91 Hemiplegia, unspecified affecting right dominant side; I12.9 Hypertensive chronic kidney disease with stage 1 through stage 4 chronic kidney disease, or unspecified chronic kidney disease; I25.10 Atherosclerotic heart disease of native coronary artery without angina pectoris; K21.9 Gastro-esophageal reflux disease without esophagitis; K59.2 Neurogenic bowel, not elsewhere classified; N13.9 Obstructive and reflux uropathy, unspecified; N17.9 Acute kidney failure, unspecified; M10.9 Gout, unspecified; L97.419 Non-pressure chronic ulcer of right heel and midfoot with unspecified severity; L97.429 Non-pressure chronic ulcer of left heel and midfoot with unspecified severity; N18.9 Chronic kidney disease, unspecified; N31.9 Neuromuscular dysfunction of bladder, unspecified; R65.20 Severe sepsis without septic shock; Z74.01 Bed confinement status; Z87.891 Personal history of nicotine dependence; Z89.421 Acquired absence of other right toe(s); Z92.21 Personal history of antineoplastic chemotherapy; B96.20 Unspecified Escherichia coli [E. coli] as the cause of diseases classified elsewhere; R07.89 Other chest pain; L98.499 Non-pressure chronic ulcer of skin of other sites with unspecified severity; D64.9 Anemia, unspecified; F32.89 Other specified depressive episodes
CPT/HCPCS: 36415; 71045; 74176; 80048; 80053; 80061; 81001; 82550; 82803; 83036; 83615; 83735; 84100; 84145; 84443; 84484; 85025; 85610; 85730; 87040; 87086; 87181; 93005; 93306; 96365; 96366; 96367; 96372; 99285; G0378; J0696; J1644; J2185; J7040

== ENCOUNTER 2017-11-24 10:10 | Inpatient (IN) | payer MEDICARE ==
[2017-11-24 10:33] VITALS: BMI 23.0
[2017-11-24] MEDS ORDERED: Cefepime IV 2 gm in NS 2 GM/100 ML BAG IVPB STA (10:44)
--- NOTE | 2017-11-24 10:45 | ED PDOC ---
Arrival/HPI - General Chief Complaint: Shortness Of Breath Time Seen by Provider: 11/24/17 10:14 Historian: Patient - History of Present Illness Narrative History of Present Illness (Text): 11/24/17 10:38 62 year old male, whose past medical history includes Burkitt lymphoma, leukocytosis, s/p herpes zoster infection, leaving him paraplegic with right- sided flaccidity and a right footdrop, CAD, hypertension, GERD, renal failure, obstructive failure, anemia, depression, and anxiety, presents to the emergency department via BLS complaining shortness of breath associated with cough that began yesterday. Patient was given a nebulizer treatment at home approximately 5 hours ago and again on the field by BLS. Patient denies any sick contact, any recent hospitalization, or recently on antibiotics. Patient reports of nausea, b ut denies any fever, chills, chest pain, vomiting, diarrhea, urinary symptoms, back pain, neck pain, headache, dizziness, or any other complaints. PMD: Dr. Jak Grossman Time/Duration: 24 hours Symptom Onset: Gradual Symptom Course: Unchanged Activities at Onset: Light Context: Home Past Medical History - Provider Review Nursing Documentation Reviewed: Yes - Infectious Disease Hx of Infectious Diseases: None - Tetanus Immunization Tetanus Immunization: Unknown - Cardiac Hx Cardiac Disorders: Yes Hx Hypertension: Yes - Pulmonary Hx Respiratory Disorders: Yes Hx Sleep Apnea: Yes - Neurological Hx Neurological Disorder: No - HEENT Hx HEENT Disorder: No - Renal Hx Renal Disorder: Yes Hx Renal Failure: Yes - Endocrine/Metabolic Hx Endocrine Disorders: No - Hematological/Oncological Hx Blood Disorders: Yes Hx Cancer: Yes (burkitt's lymphoma) - Integumentary Hx Dermatological Disorder: No - Musculoskeletal/Rheumatological Hx Musculoskeletal Disorders: Yes Hx Falls: No Other/Comment: Right arm contracture, paraplegia - Gastrointestinal Hx Gastrointestinal Disorders: No - Genitourinary/Gynecological Hx Genitourinary Disorders: No - Psychiatric Hx Psychophysiologic Disorder: No Hx Substance Use: No - Past Surgical History Past Surgical History: Non-Contributing - Surgical History Other/Comment: amp rt 5th toe/tor left foot - Anesthesia Hx Anesthesia Reactions: No Hx Malignant Hyperthermia: No - Suicidal Assessment Feels Threatened In Home Enviroment: No Family/Social History - Physician Review Nursing Documentation Reviewed: Yes Family/Social History: No Known Family HX Smoking Status: Former Smoker Hx Alcohol Use: No Hx Substance Use: No Hx Substance Use Treatment: No Allergies/Home Meds Allergies/Adverse Reactions: Allergies baclofen Allergy (Verified 06/30/17 00:24) RASH zolpidem [From Ambien] Allergy (Verified 06/30/17 00:24) RASH Home Medications: Home Meds Medication Instructions Recorded Confirmed Bupropion Hydrochloride [Bupropion 150 mg PO DAILY 10/10/12 11/27/12 Hydrochloride Xl] Acetaminophen [Tylenol] 650 mg PO Q4 PRN 11/27/12 11/27/12 Amlodipine Besylate 5 mg PO DAILY 11/27/12 11/27/12 Carvedilol 25 mg PO DAILY 11/27/12 11/27/12 Clonazepam 1 mg PO HS 11/27/12 11/27/12 Gabapentin 100 mg PO HS 11/27/12 11/27/12 Magnesium Oxide 400 mg PO DAILY 11/27/12 11/27/12 Pantoprazole Sodium [Protonix] 40 mg PO DAILY 11/27/12 11/27/12 Polyethylene Glycol 3350 [Miralax] 11/27/12 11/27/12 Potassium Chloride [K-Dur 20] 20 meq PO DAILY 11/27/12 11/27/12 Sodium Chloride [Sodium Chloride 11/27/12 11/27/12 1000 ml] Vitamin B Complex/Vit C/Folic 1 tab PO DAILY 11/27/12 11/27/12 [Nephro-Sharonda Tab] traZODone [Desyrel] 50 mg PO HS PRN 11/27/12 11/27/12 Review of Systems - Physician Review All systems were reviewed & negative as marked: Yes - Review of Systems Constitutional: absent: Fevers, Other (Chills) Respiratory: SOB, Cough Cardiovascular: absent: Chest Pain Gastrointestinal: Nausea. absent: Abdominal Pain, Diarrhea Genitourinary Male: absent: Dysuria, Frequency, Hematuria Musculoskeletal: absent: Back Pain, Neck Pain Neurological: absent: Headache, Dizziness Physical Exam Vital Signs Reviewed: Yes Vital Signs Temp Pulse Resp BP Pulse Ox 11/24/17 10:21 98.6 F 125 H 24 126/73 93 L Temperature: Febrile Blood Pressure: Normal Pulse: Tachycardic Respiratory Rate: Normal Appearance: Positive for: Well-Appearing, Non-Toxic, Comfortable Pain Distress: None Mental Status: Positive for: Alert and Oriented X 3 - Systems Exam Head: Present: Atraumatic, Normocephalic Pupils: Present: PERRL Extroacular Muscles: Present: EOMI Conjunctiva: Present: Normal Mouth: Present: Dry Neck: Present: Normal Range of Motion Respiratory/Chest: Present: Good Air Exchange (Good air entry), Rhonchi (Diffuse rhonchi bilaterally ). No: Respiratory Distress, Accessory Muscle Use, Wheezes, Rales Cardiovascular: Present: Normal S1, S2, Tachycardic. No: Murmurs Abdomen: Present: Normal Bowel Sounds, Other (Belly obese). No: Tenderness, Distention, Peritoneal Signs Genitourinary Male: Present: Other (Patient has indwelling solorio catheter with approximately 200 mL of urine in bag) Back: Present: Normal Inspection Upper Extremity: Present: Normal Inspection. No: Cyanosis, Edema Lower Extremity: Present: Normal Inspection, Other (two sacral decubitus stage 2-3 with brownish drainage. Foul smelling. Left foot multiple wounds with some surrounding erythema. No streaking. Not draining. Fifth toe amputated.). No: Edema Neurological: Present: GCS=15, CN II-XII Intact Skin: Present: Warm, Dry, Normal Color. No: Rashes Psychiatric: Present: Alert, Oriented x 3, Normal Insight, Normal Concentration Medical Decision Making ED Course and Treatment: 11/24/17 10:40 Impression: 62 year old male presents complaining of shortness of breath associated with cough and nausea that began yesterday. Plan: -- VBG -- EKG -- Labs -- Change solorio catheter -- Chest X-ray -- IV Fluids, Maxipime, Tylenol -- Blood Culture, Urine Culture, Sacral Wound Culture -- Urinalysis -- Reassess and disposition Prior Visits: Notes and results from previous visits were reviewed. Progress Notes: 11/24/17 10:24 EKG shows Sinus tachycardia at 124 BPM with normal axis, normal intervals, no ST/T elevations or depressions. Interpreted by me. 11/24/17 10:49 Code Sepsis called. Lactic 1.2, WBC 30, BUN 103, creatinine 6.7. PROCEDURE: Chest X-ray Dictator : Sharif Anthony MD Report Date : 11/24/2017 11:45:03 IMPRESSION: No active disease. No significant interval change compared to the prior examination(s). 11/24/17 13:[address] Jak Grossman who is aware and agrees with the plan. Accepts patient into his service. Request Dr. Ramey, Dr. Hand, and Dr. Ram. 11/24/17 14:00 Discussed plan and results with patient. Patient in agreement with the plan to be admitted. Repeat temp is 97.5 and heart rate improved to 105-110 after IVF. - Lab Interpretations I have reviewed the lab results: Yes - EKG Interpretation Interpreted by ED Physician: Yes Type: 12 lead EKG - Scribe Statement The provider has reviewed the documentation as recorded by the Curt Emmanuel Provider Scribe Attestation: All medical record entries made by the Scribe were at my direction and personally dictated by me. I have reviewed the chart and agree that the record accurately reflects my personal performance of the history, physical exam, medical decision making, and the department course for this patient. I have also personally directed, reviewed, and agree with the discharge instructions and disposition. Disposition/Present on Arrival - Present on Arrival Any Indicators Present on Arrival: Yes History of DVT/PE: No History of Uncontrolled Diabetes: No Urinary Catheter: Yes History of Decub. Ulcer: Yes History Surgical Site Infection Following: None - Disposition Have Diagnosis and Disposition been Completed?: Yes Diagnosis: Pneumonia, Acute on chronic renal failure, Leukocytosis, Anemia, Elevated brain natriuretic peptide (BNP) level Disposition: HOSPITALIZED Disposition Time: 13:25 Patient Plan: Admission Patient Problems: Current Active Problems Problem Status Onset Acute on chronic renal failure Acute Anemia Acute Elevated brain natriuretic peptide (BNP) level Acute Leukocytosis Acute Pneumonia Acute Condition: FAIR
[2017-11-24 11:18] LABS: VENOUS BLOOD GAS BASE EXCESS 0.3 mmol/L (0.0-2.0); VENOUS BLOOD GAS PO2 52 mm/Hg (30-55); VENOUS BLOOD PH 7.39 (7.32-7.43)
[2017-11-24 11:27] LABS: ALB/GLOB RATIO 0.9 (1.1-1.8); ALBUMIN 3.7 g/dL (3.0-4.8); CALCIUM 9.6 mg/dL (8.4-10.5)
[2017-11-24 11:32] LABS: BASO # 0.03 K/mm3 (0.0-2.0); BASO % 0.1 % (0.0-3.0); EOS # 0.1 (0.0-0.7); EOS % 0.2 % (1.5-5.0); GRAN # 24.4 (1.4-6.5); GRAN % 80.9 % (50.0-68.0); HEMOGLOBIN 8.7 g/dL (14.0-18.0); LYMPH # 3.5 (1.2-3.4); LYMPH % 11.5 % (22.0-35.0); MEAN CELL VOLUME 102.8 fl (80.0-105.0); MEAN CORPUSCULAR HEMOGLOBIN 34.4 pg (25.0-35.0); MEAN CORPUSCULAR HGB CONC 33.5 g/dl (31.0-37.0); MEAN PLATELET VOLUME 9.9 fl (7.0-11.0); MONO # 2.2 (0.1-0.6); MONO % 7.3 % (1.0-6.0); RBC 2.53 10^6/uL (3.5-6.1); RED CELL DISTRIBUTION WIDTH 14.5 % (11.5-14.5)
[2017-11-24 11:36] LABS: INR 1.16; PARTIAL THROMBOPLASTIN TIME 29.6 Seconds (25.1-36.5); PROTHROMBIN TIME 13.4 SECONDS (9.4-12.5)
[2017-11-24 11:39] LABS: TROPONIN I 0.02 ng/mL
[2017-11-24 11:48] LABS: WHITE BLOOD COUNT 30.2 10^3/ul (4.5-11.0)
--- NOTE | 2017-11-24 11:48 | RAD ---
Date of service: 11/24/2017 HISTORY: Sepsis Patient COMPARISON: 06/30/2017 FINDINGS: LUNGS: No active pulmonary disease. PLEURA: No significant pleural effusion identified, no pneumothorax apparent. CARDIOVASCULAR: No radiographic findings to suggest acute or significant cardiovascular disease. OSSEOUS STRUCTURES: No significant abnormalities. VISUALIZED UPPER ABDOMEN: Normal. OTHER FINDINGS: None. IMPRESSION: No active disease. No significant interval change compared to the prior examination(s).
[2017-11-24 12:42] LABS: URINE BILIRUBIN NEGATIVE (NEGATIVE); URINE BLOOD LARGE (NEGATIVE); URINE GLUCOSE (UA) 100 mg/dL (NEGATIVE); URINE LEUKOCYTE ESTERASE LARGE Leu/uL (NEGATIVE); URINE PROTEIN 100 mg/dL (<30 mg/dL); URINE UROBILINOGEN 0.2 E.U./dL (<1 E.U./dL)
[2017-11-24 12:44] LABS: URINE APPEARANCE SL CLOUDY (CLEAR); URINE COLOR YELLOW (YELLOW)
[2017-11-24 13:00] LABS: URINE BACTERIA MANY (NEG); URINE EPITHELIAL CELLS 0 - 2 /hpf (0-5); URINE RBC 25 - 30 /hpf (0-2); URINE WBC 25 - 30 /hpf (0-6)
[2017-11-24 13:01] LABS: URINE AMORPHOUS SEDIMENT FEW
[2017-11-24] MEDS ORDERED: Vancomycin 2 GM in Sodium Chloride 0.9% 500 ML IVPB ONE (16:48)
[2017-11-24] MEDS ORDERED: Iohexol 240 (50 ml) ONE (16:57)
[2017-11-24 17:44] LABS: VENOUS BLOOD GAS BASE EXCESS 1.2 mmol/L (0.0-2.0); VENOUS BLOOD GAS PO2 37 mm/Hg (30-55); VENOUS BLOOD PH 7.41 (7.32-7.43)
--- NOTE | 2017-11-24 17:52 | CARD ---
APPROVED REPORT Date of service: 11/24/2017 EKG Measurement Heart [id number] ID [id number] <Conclusion> Sinus tachycardia Septal infarct, age undetermined Abnormal ECG
[2017-11-24] MEDS ORDERED: Albuterol 0.083% Inhal Sol (2.5 mg/3 mL) UD IH PRN (18:34)
[2017-11-24] MEDS ORDERED: Pneumococcal 23-Valent Vaccine IM ONE (18:36)
[2017-11-24] MEDS ORDERED: Influenza Vaccine 60 mcg/0.5 mL SYR (4YR UP) IM ONE (18:36)
[2017-11-24] MEDS: MELATONIN 3 MG PO SCH (22:04)
--- NOTE | 2017-11-25 10:28 | CT ---
Date of service: 11/24/2017 PROCEDURE: CT Abdomen and Pelvis without intravenous contrast HISTORY: rule out intra-abdominal infection COMPARISON: 06/30/2017 TECHNIQUE: Without contrast.. Contrast dose: Radiation dose: Total exam DLP = 876 mGy-cm. This CT exam was performed using one or more of the following dose reduction techniques: Automated exposure control, adjustment of the mA and/or kV according to patient size, and/or use of iterative reconstruction technique. FINDINGS: LOWER THORAX: Bibasilar consolidation consistent with pneumonia LIVER: Unremarkable. No gross lesion or ductal dilatation. GALLBLADDER AND BILE DUCTS: Unremarkable. PANCREAS: Unremarkable. No gross lesion or ductal dilatation. SPLEEN: Unremarkable. ADRENALS: Unremarkable. No mass. KIDNEYS AND URETERS: Bilateral ureteral stents. VASCULATURE: Unremarkable. No aortic aneurysm. BOWEL: Unremarkable. No obstruction. No gross mural thickening. Oral contrast is seen in a rectal or anal fissure which extends directly posteriorly. Finding is seen on image 162 series 3. APPENDIX: Unremarkable. Normal appendix. PERITONEUM: Unremarkable. No free fluid. No free air. LYMPH NODES: Unremarkable. No enlarged lymph nodes. BLADDER: Bladder decompressed by Suazo catheter. REPRODUCTIVE: Unremarkable. BONES: Partial resection of the sacrum. OTHER FINDINGS: The report concurs with the preliminary [facility] report IMPRESSION: No acute intra-abdominal findings. Bibasilar pneumonia Chronic appearing rectal or anal fissure directed posteriorly.
[2017-11-25] MEDS: LANTHANUM CARBONATE 500 MG PO SCH ×3 (11:01→19:57)
[2017-11-25] MEDS: Multivitamin Therapeutic Tab PO SCH (11:03)
--- NOTE | 2017-11-25 17:07 | HP ---
ADMITTING HISTORY AND PHYSICAL HISTORY OF PRESENT ILLNESS: The patient is a 62-year-old male, who had been complaining of upper respiratory symptoms for the past several days. However, on the morning of admission, he claimed to his that he could not breathe, therefore franky was called and the patient was brought to the [facility] emergency room. He apparently received two nebulizer treatments given to him by the franky on his way to the emergency room. PAST MEDICAL HISTORY: The patient is known to have a past medical history positive for Burkitt lymphoma. He is a left-sided hemiplegic. He has a neurogenic bladder, and requires digital disimpaction on daily basis. He has a history of coronary artery disease, hypertension and chronic renal disease. The patient is bedridden. He is status post amputation of his toe, one on the right, one on the left. SOCIAL HISTORY: He is a former smoker, a nonalcoholic drinker. He is . ALLERGIES: HE IS KNOWN TO BE ALLERGIC TO BACLOFEN AND ZOLPIDEM, EACH OF WHICH HAVE CAUSED A RASH IN THE PAST. MEDICATIONS ON ADMISSION: Include bupropion 150 mg daily, amlodipine 5 mg, Coreg 25 mg daily, Klonopin 1 mg at bedtime, gabapentin 100 mg at bedtime, magnesium oxide 400 mg daily, Protonix 40 mg daily, polyethylene glycol daily, K-Dur 20 mEq daily, vitamin B complex and Desyrel 50 mg at bedtime. PHYSICAL EXAMINATION: VITAL SIGNS: His blood pressure is 126/73, heart rate is 125 and he is afebrile at 98.6 degrees Fahrenheit. GENERAL: The patient is awake, alert and oriented. There is a contracture of the right upper extremity. NECK: There is no lymphadenopathy or goiter palpable in the neck. LUNGS: Clear anteriorly and laterally. HEART: Regular. No murmurs are appreciated. ABDOMEN: Soft, nontender. EXTREMITIES: Free of cyanosis, clubbing or edema. There are 2 sacral decubiti noted draining foul-smelling liquid. There is a contracture of the right upper extremity as mentioned above. IMPRESSION: The patient is to be admitted, started on IV fluids. He was given antibiotics in the emergency room. Consultations from Dr. Hand and Dr. Ram are requested. As per the patient's wishes and his family's wishes at bedside when the patient was evaluated, DNR/DNI order is written. The patient's expressed desire to have the patient transferred to [facility] where she feels the physicians there know him a bit better and have been following him over the past several years. The patient was to be reevaluated in the morning. We are continuing with his home meds. We are also continuing with albuterol nebulizer treatments and meropenem. Jak Grossman MD MTDPatsy
--- NOTE | 2017-11-25 22:02 | CP.PCM.CON ---
History of Present Illness - History of Present Illness History of Present Illness: 62 year old male with PMH of Burkitt's lymphoma, history of herpes zoster, CAD, HTN, GERD, chronic renal failure, chronic anemia, depression and anxiety came in to the ED complaining of shortness of breath and cough for the past 1-2 days. The patient had fever as well. He denies headache or dizziness, no chest pain, no sore throat, no rhinorrhea, denies dysphagia, no diarrhea, no dysuria, no abdominal pain. CT scan of the abdomen and pelvis is showing bibasilar infiltrates. Infectious diseases consult is requested to further evaluate and manage. Review of Systems - Review of Systems All systems: reviewed and no additional remarkable complaints except (as per HPI ) Past Patient History - Infectious Disease Hx of Infectious Diseases: None - Tetanus Immunizations Tetanus Immunization: Unknown - Past Social History Smoking Status: Former Smoker - CARDIAC Hx Cardiac Disorders: Yes Hx Hypertension: Yes - PULMONARY Hx Respiratory Disorders: Yes Hx Sleep Apnea: Yes - NEUROLOGICAL Hx Neurological Disorder: No - HEENT Hx HEENT Problems: No - RENAL Hx Chronic Kidney Disease: Yes Hx Renal Failure: Yes - ENDOCRINE/METABOLIC Hx Endocrine Disorders: No - HEMATOLOGICAL/ONCOLOGICAL Hx Blood Disorders: Yes Hx Cancer: Yes (burkitt's lymphoma) - INTEGUMENTARY Hx Dermatological Problems: No - MUSCULOSKELETAL/RHEUMATOLOGICAL Hx Musculoskeletal Disorders: Yes Hx Falls: No Other/Comment: Right arm contracture, paraplegia - GASTROINTESTINAL Hx Gastrointestinal Disorders: No - GENITOURINARY/GYNECOLOGICAL Hx Genitourinary Disorders: No - PSYCHIATRIC Hx Psychophysiologic Disorder: No Hx Substance Use: No - SURGICAL HISTORY Other/Comment: amp rt 5th toe/tor left foot - ANESTHESIA Hx Anesthesia Reactions: No Hx Malignant Hyperthermia: No Meds Allergies/Adverse Reactions: Allergies Allergy/AdvReac Type Severity Reaction Status Date / Time baclofen Allergy RASH Verified 06/30/17 00:24 zolpidem [From Ambien] Allergy RASH Verified 06/30/17 00:24 - Medications Medications: Current Medications Acetaminophen (Tylenol 325mg Tab) 975 mg PO ONCE PRN PRN Reason: Fever >100.4 F Last Admin: 11/24/17 11:09 Dose: 975 mg Meropenem 250 mg/ Sodium (Chloride) 100 mls @ 100 mls/hr IVPB Q12H [facility]; Protocol Stop: 12/01/17 17:01 Vancomycin HCl 2 gm/ Sodium (Chloride) 500 mls @ 170 mls/hr IVPB ONCE ONE; Protocol Stop: 11/24/17 19:44 Physical Exam - Constitutional Appears: Chronically Ill - Head Exam Head Exam: NORMAL INSPECTION - Neck Exam Neck exam: Negative for: Meningismus - Respiratory Exam Respiratory Exam: Decreased Breath Sounds - Cardiovascular Exam Cardiovascular Exam: +S1, +S2 - GI/Abdominal Exam GI & Abdominal Exam: Soft. absent: Tenderness Results - Vital Signs Recent Vital Signs: Last Vital Signs Temp 99.1 F 11/24/17 16:17 Pulse 111 H 11/24/17 16:17 Resp 20 11/24/17 16:17 BP 127/80 11/24/17 16:17 Pulse Ox 95 11/24/17 16:17 - Labs Result Diagrams: 11/24/17 10:10 11/24/17 10:10 Labs: Laboratory Results - last 24 hr 11/24/17 11/24/17 11/24/17 10:10 10:10 10:10 WBC 30.2 H* D RBC 2.53 L Hgb 8.7 L Hct 26.0 L MCV 102.8 MCH 34.4 MCHC 33.5 RDW 14.5 Plt Count 161 MPV 9.9 Gran % 80.9 H Lymph % (Auto) 11.5 L [place] % (Auto) 7.3 H Eos % (Auto) 0.2 L Baso % (Auto) 0.1 Gran # 24.40 H Lymph # (Auto) 3.5 H [place] # (Auto) 2.2 H Eos # (Auto) 0.1 Baso # (Auto) 0.03 PT 13.4 H INR 1.16 APTT 29.6 pO2 52 VBG pH 7.39 VBG pCO2 42.0 VBG HCO3 25.4 VBG Total CO2 26.7 VBG O2 Sat (Calc) 88.8 H VBG Base Excess 0.3 VBG Potassium 4.4 Sodium 137.0 Chloride 103.0 Glucose 113 H Lactate 1.6 FiO2 21.0 Potassium Carbon Dioxide Anion Gap BUN Creatinine Est GFR ( Amer) Est GFR (Non-Af Amer) Random Glucose Calcium Phosphorus Magnesium Total Bilirubin AST ALT Alkaline Phosphatase Troponin I NT-Pro-B Natriuret Pep Total Protein Albumin Globulin Albumin/Globulin Ratio Venous Blood Potassium 4.4 Urine Color Urine Appearance Urine pH Ur Specific [place] Urine Protein Urine Glucose (UA) Urine Ketones Urine Blood Urine Nitrate Urine Bilirubin Urine Urobilinogen Ur Leukocyte Esterase Urine RBC Urine WBC Ur Epithelial Cells Amorphous Sediment Urine Bacteria Urine Other 11/24/17 11/24/17 10:10 12:20 WBC RBC Hgb Hct MCV MCH MCHC RDW Plt Count MPV Gran % Lymph % (Auto) [place] % (Auto) Eos % (Auto) Baso % (Auto) Gran # Lymph # (Auto) [place] # (Auto) Eos # (Auto) Baso # (Auto) PT INR APTT pO2 VBG pH VBG pCO2 VBG HCO3 VBG Total CO2 VBG O2 Sat (Calc) VBG Base Excess VBG Potassium Sodium 140 Chloride 100 Glucose Lactate FiO2 Potassium 4.1 Carbon Dioxide 23 Anion Gap 21 H BUN 103 H Creatinine 6.7 H Est GFR ( Amer) 10 Est GFR (Non-Af Amer) 8 Random Glucose 115 H Calcium 9.6 Phosphorus 4.2 Magnesium 2.3 H Total Bilirubin 0.9 AST 30 ALT 16 Alkaline Phosphatase 94 Troponin I 0.02 D NT-Pro-B Natriuret Pep 3880 H Total Protein 7.7 Albumin 3.7 Globulin 4.0 Albumin/Globulin Ratio 0.9 L Venous Blood Potassium Urine Color Yellow Urine Appearance Sl cloudy Urine pH 8.0 Ur Specific [place] 1.015 Urine Protein 100 H Urine Glucose (UA) 100 H Urine Ketones Negative Urine Blood Large H Urine Nitrate Negative Urine Bilirubin Negative Urine Urobilinogen 0.2 Ur Leukocyte Esterase Large H Urine RBC 25 - 30 Urine WBC 25 - 30 Ur Epithelial Cells 0 - 2 Amorphous Sediment Few Urine Bacteria Many Urine Other Uyeast Assessment & Plan - Assessment and Plan (Free Text) Plan: Assessment Severe sepsis due to bilateral lower lobe pneumonia Burkitt's lymphoma history of herpes zoster CAD HTN GERD chronic renal failure chronic anemia depression and anxiety Plan Started with a dose of IV Vancomycin and started Merrem and Doxycycline pending blood, sputum cx, PCT, urine Legionella Ag reviewed CT A/P will monitor clinically
[2017-11-25] MEDS: MELATONIN 3 MG PO SCH (23:33)
--- NOTE | 2017-11-26 01:54 | PN ---
DATE: 11/25/2017 SUBJECTIVE: Patient was seen this afternoon in room 578, bed #2, resting in bed, in no acute distress. He recognizes me when I came in to the room. I have not seen him in almost a year since the last house visit and his multiple stays and followup at the [facility]. Patient is able to understand me and speaks although sometimes not clearly. I explained list of diagnoses and traditions thus far ranging from infection to renal insufficiency. ASSESSMENT AND PLAN: We will check morning labs. I understand that he is up for transfer to the [facility] when the bed is available as soon as later tonight or tomorrow. We will continue antibiotics for now. Linden Grossman MD MTDPatsy
--- NOTE | 2017-11-26 06:59 | CON ---
DATE: 11/25/2017 REASON FOR CONSULTATION: Acute renal failure superimposed on chronic kidney disease, stage 4/5. HISTORY OF PRESENT ILLNESS: This is a 62-year-old male previously unknown to me, who has a history of Burkitt lymphoma diagnosed in 2012 complicated by a shingle's infection, paraplegia, neurogenic bladder, neurogenic bowel, chronic Suazo, chronic kidney disease stage IV, hypertension, anemia, was brought to the hospital with complaints of cough, shortness of breath. The patient denies any history of any fever. In the emergency room, he was found to be afebrile. His temperature was found to be 101.2, he was normotensive. His blood work showed a BUN of 103 and creatinine of 6.7. Hence consultation is requested. Currently, the patient is unable to fully cooperate with evaluation. He is having bouts of cough. He is mildly short of breath. PAST MEDICAL AND SURGICAL HISTORY: Burkitt's lymphoma, shingles, paraplegia, neurogenic bladder, neurogenic bowels, CAD, chronic kidney disease stage IV. FAMILY HISTORY: Noncontributory. SOCIAL HISTORY: Ex-smoker, social drinker. No history of any drug abuse. ALLERGIES: BACLOFEN AND ZOLPIDEM. MEDICATIONS AT HOME: Ibuprofen, amlodipine 5, Coreg 25, Klonopin 1, gabapentin 100, mag oxide, Protonix, lactulose, K-Dur, Desyrel. REVIEW OF SYSTEMS: All systems are reviewed, pertinent positives as mentioned in history of presenting illness, rest unremarkable. PHYSICAL EXAMINATION: GENERAL: Middle-aged male lying in bed in mild to moderate distress because of cough. VITAL SIGNS: Blood pressure 105/72, heart rate is 98, respiratory rate 20, temperature 99.2, T-max 101.2. HEENT: Normocephalic, atraumatic, positive pallor. NECK: Supple, no JVD. LUNGS: Bilateral rhonchi, bilateral expiratory wheeze. CARDIAC: S1 and S2, regular and rhythm, no murmur, no rub. ABDOMEN: Obese, distended, soft, nontender, bowel sounds present. EXTREMITIES: Contractures of the upper extremities, no lower extremity edema. INTAKE AND OUTPUT: 120/500. LABORATORY DATA: WBC 30, hemoglobin 8.7, hematocrit 26, platelets 161. Sodium 140, potassium 4.1, chloride 100, CO2 23, BUN 103, creatinine 6.7, glucose 115, calcium 9.6, phosphorus 4.2, magnesium 2.3, total protein 7.7, albumin 3.7, globulin 4. Urinalysis yellow, slightly cloudy, pH 8, specific gravity 1.015, protein 100, glucose 100, blood large, leukocyte esterase large, influenza antibody negative. Urine culture 50-100,000 colonies of multiple organisms. Blood culture no growth. Wound culture, gram-negative sandrita. CT of the abdomen and pelvis. No acute intra-abdominal findings. ASSESSMENT: 1. Acute kidney injury superimposed on chronic kidney disease stage 4/5. 2. Severe sepsis secondary to infected sacral wound,?, fever, leukocytosis. 3. Severe anemia. 4. History of hypertension. 5. History of coronary artery disease. 6. Paraplegia, bed bound status. 7. Do not resuscitate status. PLAN: 1. Follow up cultures. 2. Continue empiric antibiotics as per ID recommendations, dose for creatinine clearance less than 10 mL/minute. 3. Monitor urine output. 4. Check iron stores. 5. Avoid nephrotoxins. 6. We will discussed with the patient plans for renal replacement therapy when it becomes necessary. Madina Mantilla MD
[2017-11-26 07:37] LABS: BASO # 0.03 K/mm3 (0.0-2.0); BASO % 0.1 % (0.0-3.0); EOS # 0.3 (0.0-0.7); EOS % 1.3 % (1.5-5.0); GRAN # 17.15 (1.4-6.5); GRAN % 79.7 % (50.0-68.0); HEMOGLOBIN 7.6 g/dL (14.0-18.0); LYMPH % 13.9 % (22.0-35.0); MEAN CELL VOLUME 103.1 fl (80.0-105.0); MEAN CORPUSCULAR HEMOGLOBIN 33.5 pg (25.0-35.0); MEAN CORPUSCULAR HGB CONC 32.5 g/dl (31.0-37.0); MEAN PLATELET VOLUME 9.5 fl (7.0-11.0); MONO # 1.1 (0.1-0.6); RBC 2.27 10^6/uL (3.5-6.1); RED CELL DISTRIBUTION WIDTH 14.2 % (11.5-14.5); WHITE BLOOD COUNT 21.6 10^3/ul (4.5-11.0)
[2017-11-26 07:48] LABS: IRON 44 ug/dL (45-180)
[2017-11-26 07:53] LABS: CALCIUM 9.5 mg/dL (8.4-10.5)
[2017-11-26 07:54] LABS: ALB/GLOB RATIO 0.9 (1.1-1.8)
[2017-11-26 07:57] LABS: % IRON SATURATION 37 % (20-55); TOTAL IRON BINDING CAPACITY 117 ug/dL (261-462)
[2017-11-26] MEDS: Multivitamin Therapeutic Tab PO SCH (10:24)
[2017-11-26] MEDS: LANTHANUM CARBONATE 500 MG PO SCH ×3 (10:30→18:32)
[2017-11-26] MEDS ORDERED: Darbepoetin Alfa 60 mcg/ml Inj SC ONE (16:41)
--- NOTE | 2017-11-26 17:37 | PN ---
DATE: 11/26/2017 SUBJECTIVE: The patient is seen lying in bed. He is awake, he is alert. He is a little bit more comfortable today. PHYSICAL EXAMINATION: GENERAL: Elderly male lying in bed. VITAL SIGNS: Blood pressure 106/69, heart rate 100, respiratory rate 17, temperature 98.6. HEENT: Normocephalic, atraumatic, positive pallor. NECK: Supple, no JVD. LUNGS: Bilateral equal air entry, bilateral rhonchi, no rales appreciated anteriorly. CARDIAC: S1 and S2, regular rate and rhythm, no murmur, no rub. ABDOMEN: Obese, distended, soft, nontender, bowel sounds present. EXTREMITIES: Contractures of the upper extremities. Contractures of the lower extremities, ulcers on the heels. INTAKE AND OUTPUT: 840/700. LABORATORY DATA: WBC 21.6, hemoglobin 7.6, hematocrit 23, platelets 129. Sodium 139, potassium 4, chloride 105, CO2 of 19, BUN 91, creatinine 6.3, glucose 81, calcium 9.5. Iron saturation 37, iron 44, ferritin 4100, albumin 3, procalcitonin 2.7. Urinalysis: Yellow, slightly cloudy, pH 8, specific 1.015, protein 100, glucose 100, blood large, leukocyte esterase large. Urine culture, multiple species. Wound culture from the sacral wound, E. coli and Staph aureus. CURRENT MEDICATIONS: Benadryl, Colace, doxycycline 100 every 12 hours, meropenem 250 every 12 hours, gabapentin, amlodipine, Seroquel, sodium bicarbonate 650 p.o. t.i.d., multivitamin, Tylenol, and acyclovir. ASSESSMENT: 1. 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 2. Severe sepsis, secondary to sacral wound. 3. Bronchitis. 4. History of Burkitt lymphoma. 5. Paraplegia. 6. Severe anemia. PLAN: 1. Discussed with the patient, renal function is somewhat improved, but the patient has advanced chronic kidney disease, discussed option of renal replacement therapy if need arises. The patient refuses dialysis. 2. Aranesp 60 mcg today. 3. Follow up PTH. 4. Continue antibiotics as per ID recommendations, dose for creatinine clearance less than 10 mL/minute. 5. Transfuse 1 unit of PRBC. Madina Mantilla MD [facility] # [id number]
--- NOTE | 2017-11-26 23:41 | CP.PCM.PN ---
Subjective - Date & Time of Evaluation Date of Evaluation: 11/26/17 Time of Evaluation: 14:45 - Subjective Subjective: Still with cough but less short of breath, no fevers overnight. Objective - Vital Signs/Intake and Output Vital Signs (last 24 hours): Temp Pulse Resp BP Pulse Ox 98.5 F 97 H 16 113/69 97 11/25/17 21:54 11/25/17 21:54 11/25/17 21:54 11/25/17 21:54 11/25/17 21:54 - Medications Medications: Current Medications Acetaminophen (Tylenol 325mg Tab) 975 mg PO ONCE PRN PRN Reason: Fever >100.4 F Last Admin: 11/24/17 11:09 Dose: 975 mg Acetaminophen (Tylenol 325mg Tab) 650 mg PO Q4 PRN PRN Reason: Pain, Mild (1-3) Acyclovir (Zovirax) 200 mg PO Q12 KEITH; Protocol Last Admin: 11/25/17 11:02 Dose: 200 mg Albuterol Sulfate (Albuterol 0.083% Inhal Pearl (2.5 Mg/3 Ml) Ud) 2.5 mg IH RTID PRN PRN Reason: Wheezing Amlodipine Besylate (Norvasc) 10 mg PO DAILY KEITH Last Admin: 11/25/17 11:02 Dose: 10 mg Diphenhydramine HCl (Benadryl) 25 mg PO HS PRN PRN Reason: Insomnia Docusate Sodium (Colace) 100 mg PO QOTHERDAY EKITH Gabapentin (Neurontin) 100 mg PO DAILY KEITH; Protocol Last Admin: 11/25/17 11:01 Dose: 100 mg Meropenem 250 mg/ Sodium (Chloride) 100 mls @ 100 mls/hr IVPB Q12H KEITH; Protocol Stop: 12/01/17 17:01 Last Admin: 11/25/17 05:21 Dose: 100 mls/hr Doxycycline Hyclate 100 mg/ (Sodium Chloride) 100 mls @ 100 mls/hr IVPB Q12 KEITH; Protocol Multivitamins (Thera Tab) 1 tab PO DAILY KEITH Last Admin: 11/25/17 11:03 Dose: 1 tab Non-Formulary Medication (Lanthanum Carbonate) 500 mg PO TID KEITH Last Admin: 11/25/17 19:57 Dose: Not Given Non-Formulary Medication (Melatonin) 3 mg PO HS KEITH Last Admin: 11/24/17 22:04 Dose: Not Given Quetiapine Fumarate (Seroquel) 25 mg PO HS [facility] Last Admin: 11/24/17 23:18 Dose: 25 mg Sennosides (Senokot Tab) 8.6 mg PO DAILY [facility] Last Admin: 11/25/17 11:01 Dose: 8.6 mg Sodium Bicarbonate (Sodium Bicarbonate Tab) 650 mg PO TID [facility] Last Admin: 11/25/17 19:57 Dose: 650 mg - Labs Labs: 11/24/17 10:10 11/24/17 10:10 PT 13.4 SECONDS (9.4-12.5) H 11/24/17 10:10 INR 1.16 11/24/17 10:10 APTT 29.6 Seconds (25.1-36.5) 11/24/17 10:10 - Constitutional Appears: Chronically Ill - Head Exam Head Exam: NORMAL INSPECTION - Respiratory Exam Respiratory Exam: Decreased Breath Sounds - Cardiovascular Exam Cardiovascular Exam: +S1, +S2 - GI/Abdominal Exam GI & Abdominal Exam: Soft. absent: Tenderness Assessment and Plan - Assessment and Plan (Free Text) Plan: Assessment Severe sepsis due to bilateral lower lobe pneumonia Burkitt's lymphoma history of herpes zoster CAD HTN GERD chronic renal failure chronic anemia depression and anxiety Plan Started with a dose of IV Vancomycin and continue Merrem and Doxycycline day 2 pending final culture results, urine Legionella Ag reviewed CT A/P will continue to monitor clinically
[2017-11-27] MEDS: MELATONIN 3 MG PO SCH ×2 (00:30→22:23)
[2017-11-27 07:45] LABS: BASO # 0.02 K/mm3 (0.0-2.0); BASO % 0.1 % (0.0-3.0); EOS # 0.3 (0.0-0.7); EOS % 1.9 % (1.5-5.0); GRAN # 12.42 (1.4-6.5); GRAN % 75.8 % (50.0-68.0); HEMOGLOBIN 9.7 g/dL (14.0-18.0); LYMPH # 2.7 (1.2-3.4); LYMPH % 16.2 % (22.0-35.0); MEAN CELL VOLUME 94.4 fl (80.0-105.0); MEAN CORPUSCULAR HGB CONC 33.9 g/dl (31.0-37.0); MEAN PLATELET VOLUME 9.6 fl (7.0-11.0); RBC 3.03 10^6/uL (3.5-6.1); RED CELL DISTRIBUTION WIDTH 19.4 % (11.5-14.5); WHITE BLOOD COUNT 16.4 10^3/ul (4.5-11.0)
[2017-11-27 08:11] LABS: ALB/GLOB RATIO 0.8 (1.1-1.8); CALCIUM 9.2 mg/dL (8.4-10.5)
[2017-11-27] MEDS: Multivitamin Therapeutic Tab PO SCH (09:59)
[2017-11-27] MEDS: LANTHANUM CARBONATE 500 MG PO SCH ×3 (10:00→17:07)
[2017-11-27] MEDS: Albuterol-Ipratrop 3 mg / 0.5 (3 ml) UD IH SCH ×2 (12:00→19:57)
[2017-11-27] MEDS ORDERED: Vancomycin 1gm in NS 250ml 1 GM/250 ML BAG IVPB STA (16:36)
--- NOTE | 2017-11-27 20:00 | PN ---
DATE: 11/26/2017 SUBJECTIVE: The patient was seen this Wednesday morning in room 578, bed 2. He is resting comfortably in bed, awake, answers me. PHYSICAL EXAMINATION: HEAD AND NECK: Unremarkable. LUNGS: There is a wet cough, but lungs are clear anteriorly. HEART: Regular and not tachycardic. IMPRESSION: 1. Sepsis from decubitus ulcer, bilateral ureteral stents in place. 2. Cough, but no fever or chills. 3. Chronic leukocytosis. 4. 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 PLAN: In view of the cough, I will order a chest x-ray today and repeat the urinalysis and C and S. Linden Grossman MD
--- NOTE | 2017-11-27 21:47 | PN ---
DATE: 11/27/2017 SUBJECTIVE: The patient was seen this Wednesday morning in room 578, bed 2, resting comfortably in bed. 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 Today, the patient is more awake. I spoke with him at length reviewing the conditions currently under treatment starting with his sacral decubiti, bilateral ureteral stents in place and chronic renal failure. I also noticed him to have a chronic wet cough. He seems to think this cough gets worse with after eating. So, therefore my concern for aspiration risk is high. He also seems to have a hard time clearing phlegm and secretions. So, I ordered a chest x-ray to be done as portable, asked Respiratory Therapy to begin chest physical therapy. Continue antibiotics and monitor closely. I will check with Speech Pathology following the evaluation. Linden Grossman MD
--- NOTE | 2017-11-27 22:43 | PN ---
DATE: 11/27/2017 SUBJECTIVE: The patient seen in 578, bed 2. No fevers or chills. The patient was seen earlier this morning. PHYSICAL EXAMINATION: VITAL SIGNS: Temperature is 98, blood pressure is 100/60, respiratory rate of 18, heart rate of 87. HEENT: Unremarkable. NECK: Supple. LUNGS: Have decreased breath sounds. HEART: Normal S1, S2. ABDOMEN: Soft, nontender. No rebound or guarding. LABORATORY DATA: Reveals a white count of 16,400, which is improved from 30,000, hemoglobin of 9. Creatinine is 6 2.7. Urinalysis is noted. Influenza is negative. Microbiology reveals sacral ulcer to be positive for MRSA and E. coli. The blood cultures are no growth. Review of orders reveals the patient to be on acyclovir, meropenem. Chest x-ray from today is pending. ASSESSMENT AND PLAN: This is a 62-year-old male with severe sepsis due to bilateral lower lobe pneumonia, Burkitt lymphoma, history of zoster, coronary artery disease, hypertension, on intermittent vancomycin, meropenem, and doxycycline day #3 with methicillin-resistant Staphylococcus aureus from the wound. We will give another dose of vancomycin and change the doxycycline p.o. Continue meropenem at this point in next 24 hours' time. Rolly Hand MD
[2017-11-27 22:51] VITALS: RESP 18
[2017-11-28] MEDS ORDERED: guaiFENesin 100 mg/5 ml Syrup UD PO PRN (08:00)
[2017-11-28] MEDS: Albuterol-Ipratrop 3 mg / 0.5 (3 ml) UD IH SCH ×2 (08:12→21:00)
[2017-11-28 08:20] LABS: BASO # 0.04 K/mm3 (0.0-2.0); BASO % 0.3 % (0.0-3.0); EOS # 0.3 (0.0-0.7); EOS % 2.1 % (1.5-5.0); GRAN # 9.27 (1.4-6.5); GRAN % 65.5 % (50.0-68.0); HEMOGLOBIN 10.2 g/dL (14.0-18.0); LYMPH # 3.8 (1.2-3.4); LYMPH % 26.9 % (22.0-35.0); MEAN CORPUSCULAR HEMOGLOBIN 32.1 pg (25.0-35.0); MEAN CORPUSCULAR HGB CONC 33.8 g/dl (31.0-37.0); MEAN PLATELET VOLUME 9.9 fl (7.0-11.0); MONO # 0.7 (0.1-0.6); MONO % 5.2 % (1.0-6.0); RBC 3.18 10^6/uL (3.5-6.1); WHITE BLOOD COUNT 14.1 10^3/ul (4.5-11.0)
[2017-11-28 08:39] LABS: CALCIUM 9.2 mg/dL (8.4-10.5)
[2017-11-28] MEDS ORDERED: Collagenase 250 Units/gm Ointment(30 gm) TOP SCH (10:00)
[2017-11-28] MEDS: Multivitamin Therapeutic Tab PO SCH (13:24)
[2017-11-28] MEDS: LANTHANUM CARBONATE 500 MG PO SCH ×2 (13:30→16:35)
[2017-11-28] MEDS: MELATONIN 3 MG PO SCH (21:55)
--- NOTE | 2017-11-28 22:21 | PN ---
DATE: 11/28/2017 SUBJECTIVE: The patient is in bed, in no acute distress, nontoxic. PHYSICAL EXAMINATION: VITAL SIGNS: Temperature is 98, blood pressure is 102/60, respiratory rate of 18, heart rate of 105. HEENT: Unremarkable. NECK: Supple. LUNGS: Have decreased breath sounds. HEART: Normal S1, S2. ABDOMEN: Soft, nontender. LABORATORY EXAMINATION: Reveals a white count of 14,000, hemoglobin of 10, platelets of 122. Chemistries reveals BUN of 87, creatinine of 6. Urinalysis is noted. Serology is noted and microbiology is reviewed and with sacral culture growing E. coli and MRSA. Review of orders reveals the patient to be on vancomycin intermittently and meropenem. The patient is also on doxycycline IV. ASSESSMENT AND PLAN: A 62-year-old man who was seen in [facility], bed 2 earlier today with sepsis due to bilateral lower lobe pneumonia, Burkitt lymphoma, history of zoster, coronary artery disease, hypertension, on meropenem, doxycycline day #4 with methicillin-resistant Staphylococcus aureus from the wound. Another dose of vancomycin was given. The patient's blood cultures are negative. Urine culture is mixed organisms and we will change the IV doxycycline to p.o. doxycycline, which also has methicillin-resistant Staphylococcus aureus coverage, 100 mg p.o. b.i.d. x7 days. The patient did have an elevated procalcitonin of 2.71; however, the patient's creatinine is 6.3. The patient did have a chest x-ray yesterday, which results are not available at this time. Rolly Hand MD
--- NOTE | 2017-11-29 00:37 | PN ---
DATE: 11/28/2017 SUBJECTIVE: The patient is seen lying in bed. He is awake, he is alert, he is comfortable. He reports his cough is still there, but better; his shortness of breath is better. His appetite is much improved. He has no nausea. PHYSICAL EXAMINATION: VITAL SIGNS: Blood pressure 112/75, heart rate 79, respiratory rate 18, temperature 97.8. HEENT: Normocephalic, atraumatic, positive pallor. NECK: Supple, no JVD. LUNGS: Bilateral equal air entry, bilateral equal expansion, expiratory wheeze. CARDIAC: S1 and S2, regular rate and rhythm, no murmur, no rub. ABDOMEN: Obese, distended, soft, nontender, bowel sounds present. EXTREMITIES: Contractures of the upper extremities, ulcer on the left heel. Intake and output: 120/900. LABORATORY DATA: WBC 14, hemoglobin 10, hematocrit 30, platelets 122. Sodium 139, potassium 4.2, chloride 108, CO2 18, BUN 87, creatinine 6, glucose 85, calcium 9.2, albumin 3, globulin 3.6. CURRENT MEDICATIONS: Albuterol, Benadryl, Colace, doxycycline 100 every 12, meropenem 250 every 12, Neurontin, amlodipine 10, guaifenesin, Santyl, Senokot, Seroquel, sodium bicarbonate 650 t.i.d., Zovirax, Ultram. ASSESSMENT: 1. Acute kidney injury superimposed on chronic kidney disease stage IV/V, resolving acute kidney injury. 2. Severe sepsis, leukocytosis, sacral decubitus with Escherichia coli and methicillin-resistant Staphylococcus aureus. 3. Anemia of chronic kidney disease. 4. Hyperphosphatemia. 5. Paraparesis. 6. History of Burkitt's lymphoma. 7. History of zoster. PLAN: 1. Push p.o. fluids. 2. Continue EFA once a week. 3. Check phosphorus and intact PTH levels. 4. Avoid nephrotoxins. Madina Mantilla MD
--- NOTE | 2017-11-29 02:53 | PN ---
DATE: 11/28/2017 SUBJECTIVE: Patient was seen this Wednesday afternoon in room 578, bed 2. Resting comfortably in bed, much more awake, much more alert and a bit more talkative as well. PHYSICAL EXAMINATION: LUNGS: Show good aeration, right and left. HEART: Regular, not tachycardic. IMPRESSION: Sepsis due to decubitus infection as well as pneumonia reported on CT scan but not noticed on chest x-ray or not able to be visualized on chest x-ray with leukocytosis in addition to his chronic leukocytosis. PLAN: Continuing antibiotics for now. We will talk to the patient and his about physical therapy and plan for discharge to home probably in the next few days. On Wednesday, we will reconfirm our plans that we are not heading to the [facility], but rather to home with visiting nurse, physical therapy, etc. I will ask Physical Therapy to evaluate the patient now that he is more awake and appearing active. Linden Grossman MD
[2017-11-29] MEDS: Albuterol-Ipratrop 3 mg / 0.5 (3 ml) UD IH SCH (08:00)
[2017-11-29 09:29] VITALS: PULSE 74; TEMP 97.5; O2SAT 98
[2017-11-29] MEDS: Multivitamin Therapeutic Tab PO SCH (10:14)
[2017-11-29] MEDS: LANTHANUM CARBONATE 500 MG PO SCH (10:16)
[2017-11-29 10:17] VITALS: BP 118/77
--- NOTE | 2017-11-29 12:07 | RAD ---
Date of service: 11/27/2017 HISTORY: F/U on infiltrate COMPARISON: 11/24/2017 FINDINGS: LUNGS: No active pulmonary disease. Examination limited due to obscuring of left lung apex by patient's mandible. PLEURA: No significant pleural effusion identified, no pneumothorax apparent. CARDIOVASCULAR: Normal. OSSEOUS STRUCTURES: No significant abnormalities. VISUALIZED UPPER ABDOMEN: Normal. OTHER FINDINGS: None. IMPRESSION: No active disease.
--- NOTE | 2017-11-30 08:58 | PN ---
DATE: 11/29/2017 SUBJECTIVE: The patient is seen lying in bed. He is eating lunch. He is comfortable. He reports his cough is better. He denies any shortness of breath . PHYSICAL EXAMINATION: GENERAL: Elderly male, lying in bed. VITAL SIGNS: Blood pressure , heart rate 74, respiratory rate 18, and temperature 97.5. HEENT: Normocephalic, atraumatic, positive pallor. NECK: Supple. No JVD. LUNGS: Bilateral equal air entry, bilateral equal expansion, expiratory rhonchi. CARDIAC: S1 and S2, regular rate and rhythm, no murmur, no rub. ABDOMEN: Obese, distended, soft, nontender, bowel sounds present. EXTREMITIES: contractures of the upper extremities, dressing of the left heel. INTAKE AND OUTPUT: 180/500. LABORATORY DATA: , hemoglobin 10, hematocrit 30, platelets 122. Sodium 139, potassium 4.2, chloride 108, , BUN 87, creatinine 6, glucose 85, calcium 9.2, phosphorus 6.7, . CURRENT MEDICATIONS: Colace, doxycycline, DuoNeb, 500 b.i.d., meropenem , Neurontin, Norvasc, Robitussin, sodium bicarbonate. ASSESSMENT: 1. Acute kidney injury superimposed on chronic kidney disease stage 4/5, resolved OSCAR. 2. Severe sepsis secondary to infected sacral decubitus, improving. 3. Anemia of chronic kidney disease. 4. Hyperphosphatemia. 5. History of shingles. 6. History of Burkitts Lymphoma. PLAN: 1. Continue antibiotics. 2. Push p.o. fluids. 3. Continue phosphate binder, i.e. Fosrenol t.i.d. continued. 4. Decision of antibiotics as per ID's recommendations. Madina Mantilla MD MTDD
== END 2017-11-29 15:14 | disposition home or self-care (01) | DRG 871 ==
LOC: ED 10:10 → ERH 13:46 → 5RSO 15:25
PROVIDERS: ADMIT Internal Medicine; ATTEND Internal Medicine
PROC: 3E0F7GC Introduction of Other Therapeutic Substance into Respiratory Tract, Via Natural or Artificial Opening (ICD-10-PCS; principal; 2017-11-27)
DX: A41.9 Sepsis, unspecified organism (principal); L89.154 Pressure ulcer of sacral region, stage 4; J18.9 Pneumonia, unspecified organism; N17.9 Acute kidney failure, unspecified; G82.20 Paraplegia, unspecified; C83.70 Burkitt lymphoma, unspecified site; I12.0 Hypertensive chronic kidney disease with stage 5 chronic kidney disease or end stage renal disease; N18.5 Chronic kidney disease, stage 5; G81.94 Hemiplegia, unspecified affecting left nondominant side; N31.9 Neuromuscular dysfunction of bladder, unspecified; D63.1 Anemia in chronic kidney disease; B95.62 Methicillin resistant Staphylococcus aureus infection as the cause of diseases classified elsewhere; B96.20 Unspecified Escherichia coli [E. coli] as the cause of diseases classified elsewhere; R65.20 Severe sepsis without septic shock; K59.2 Neurogenic bowel, not elsewhere classified; I25.10 Atherosclerotic heart disease of native coronary artery without angina pectoris; M21.371 Foot drop, right foot; K21.9 Gastro-esophageal reflux disease without esophagitis; Z66 Do not resuscitate; E83.39 Other disorders of phosphorus metabolism; F32.9 Major depressive disorder, single episode, unspecified; F41.9 Anxiety disorder, unspecified; Z74.01 Bed confinement status; Z86.19 Personal history of other infectious and parasitic diseases; Z87.891 Personal history of nicotine dependence

== ENCOUNTER 2018-01-18 13:25 | Inpatient (IN) | payer MEDICARE ==
[2018-01-18 13:26] VITALS: BMI 23.0
--- NOTE | 2018-01-18 15:06 | ED PDOC ---
Arrival/HPI - General Chief Complaint: Cough, Cold, Congestion Time Seen by Provider: 01/18/18 14:15 Historian: Patient - History of Present Illness Narrative History of Present Illness (Text): 01/18/18 14:44 62 year old male, whose past medical history includes paraplegia, Burkitt's lymphoma, hypertension, GERD, renal failure, obstructive failure, anemia, depression, and anxiety, presents to the Emergency department complaining of cough and congestion since 3 days. Patient informs inability to clear secretions. Patient denies any other associated somatic complaints. Patient denies any fevers, chills, headache, dizziness, chest pain, shortness of breath, dyspnea on exertion, abdominal pain, nausea, vomiting, diarrhea, back pain, neck pain, or any other complaints. Time/Duration: < week Symptom Onset: Gradual Symptom Course: Unchanged Activities at Onset: Light Context: Home Past Medical History - Provider Review Nursing Documentation Reviewed: Yes - Infectious Disease Hx of Infectious Diseases: None - Tetanus Immunization Tetanus Immunization: Unknown - Cardiac Hx Cardiac Disorders: Yes Hx Hypertension: Yes - Pulmonary Hx Respiratory Disorders: Yes Hx Sleep Apnea: Yes - Neurological Hx Neurological Disorder: No - HEENT Hx HEENT Disorder: No - Renal Hx Renal Failure: Yes - Endocrine/Metabolic Hx Endocrine Disorders: No - Hematological/Oncological Hx Blood Disorders: Yes Hx Cancer: Yes (burkitt's lymphoma) - Integumentary Hx Dermatological Disorder: No - Musculoskeletal/Rheumatological Hx Musculoskeletal Disorders: Yes Hx Falls: No Other/Comment: Right arm contracture, paraplegia - Gastrointestinal Hx Gastrointestinal Disorders: No - Genitourinary/Gynecological Hx Genitourinary Disorders: No - Psychiatric Hx Psychophysiologic Disorder: No Hx Substance Use: No - Past Surgical History Past Surgical History: Non-Contributing - Surgical History Other/Comment: amp rt 5th toe/tor left foot - Anesthesia Hx Anesthesia Reactions: No Hx Malignant Hyperthermia: No - Suicidal Assessment Feels Threatened In Home Enviroment: No Family/Social History - Physician Review Nursing Documentation Reviewed: Yes Family/Social History: Unknown Family HX Smoking Status: Former Smoker Hx Alcohol Use: No Hx Substance Use: No Hx Substance Use Treatment: No Allergies/Home Meds Allergies/Adverse Reactions: Allergies baclofen Allergy (Verified 06/30/17 00:24) RASH zolpidem [From Ambien] Allergy (Verified 06/30/17 00:24) RASH Home Medications: Home Meds Medication Instructions Recorded Confirmed Daily Multivitamin Capsule 1 mg PO DAILY 11/24/17 01/19/18 Lanthanum Carbonate 500 mg PO TID 11/24/17 01/19/18 Melatonin 3 mg PO HS 11/24/17 01/19/18 RX: Acetaminophen [Tylenol] 2 mg PO Q4 PRN 11/24/17 01/19/18 RX: Gabapentin [Neurontin] 100 mg PO DAILY 11/24/17 01/19/18 Sennosides 8.6 mg PO DAILY 11/24/17 01/19/18 Sodium Bicarbonate 650 mg PO TID 11/24/17 01/19/18 Review of Systems - Physician Review All systems were reviewed & negative as marked: Yes - Review of Systems Constitutional: absent: Fevers ENT: Sinus Congestion Respiratory: Cough. absent: SOB Cardiovascular: absent: Chest Pain, MA Gastrointestinal: absent: Abdominal Pain, Diarrhea, Nausea, Vomiting Genitourinary Male: absent: Dysuria Musculoskeletal: absent: Back Pain, Neck Pain Skin: absent: Rash Neurological: absent: Headache, Dizziness Physical Exam Vital Signs Reviewed: Yes Vital Signs Temp Pulse Resp BP Pulse Ox 01/18/18 13:34 98.6 F 119 H 19 124/79 95 01/18/18 13:26 98.6 F 119 H 19 124/79 95 Temperature: Afebrile Blood Pressure: Normal Pulse: Tachycardic Respiratory Rate: Normal Appearance: Positive for: Well-Appearing, Non-Toxic, Comfortable Pain Distress: None Mental Status: Positive for: Alert and Oriented X 3 - Systems Exam Head: Present: Atraumatic, Normocephalic Pupils: Present: PERRL Extroacular Muscles: Present: EOMI Conjunctiva: Present: Normal Mouth: Present: Dry Neck: Present: Normal Range of Motion Respiratory/Chest: Present: Clear to Auscultation, Good Air Exchange. No: Respiratory Distress, Accessory Muscle Use Cardiovascular: Present: Normal S1, S2, Tachycardic. No: Murmurs Abdomen: Present: Other (Indwelling solorio with yellowish urine noted in bag.). No: Tenderness, Distention, Peritoneal Signs Back: Present: Other (stage 2 sacral decub and stage 4 lower lumbar decub) Upper Extremity: Present: Other (right upper extremity contracted). No: Cyanosis, Edema Lower Extremity: Present: Other (large decubitus ulcer noted to dorsal lateral left foot ). No: Edema Neurological: Present: GCS=15, CN II-XII Intact, Speech Normal Skin: Present: Warm, Dry, Normal Color. No: Rashes Psychiatric: Present: Alert, Oriented x 3, Normal Insight, Normal Concentration Medical Decision Making ED Course and Treatment: 01/18/18 14:44 Impression: 62 year old male presents to the Emergency department complaining of cough and congestion. Plan: -- VBG -- EKG -- Labs -- EKG -- Chest X-ray -- IV Fluids -- Blood Culture -- Rapid Flu -- Reassess and disposition Prior Visits: Notes and results from previous visits were reviewed. Progress Notes: 01/18/18 16:19 Chest X-ray reviewed by radiologist, shows no active disease. 01/18/18 17:19 Spoke to surgical nurse practitioner for IV line placement in patient. 01/18/18 17:[address] Grossman, who is aware and agrees with ED management plan, accepts patient admission to [facility] under his service. 01/18/18 19:25 Dr. Grossman evaluated patient at bedside, requests to give Levaquin PO and cough medication to patient as well as consult surgery to put a line in tomorrow morning. Dr Grossman states patient is a DNR/DNI. - RAD Interpretation Radiology Orders: 01/18/18 14:44 CHEST PORTABLE [RAD] Stat Manager Pe: Radiologist - Medication Orders Current Medication Orders: Sodium Chloride (Sodium Chloride 0.9%) 1,000 mls @ 100 mls/hr IV .Q10H KEITH - Scribe Statement The provider has reviewed the documentation as recorded by the Scribe Charity Gonzalez. All medical record entries made by the Scribe were at my direction and personally dictated by me. I have reviewed the chart and agree that the record accurately reflects my personal performance of the history, physical exam, medical decision making, and the department course for this patient. I have also personally directed, reviewed, and agree with the discharge instructions and disposition. Disposition/Present on Arrival - Present on Arrival Any Indicators Present on Arrival: Yes History of DVT/PE: No History of Uncontrolled Diabetes: No Urinary Catheter: Yes History of Decub. Ulcer: Yes History Surgical Site Infection Following: None - Disposition Have Diagnosis and Disposition been Completed?: Yes Diagnosis: Pneumonia, Leukocytosis, Anemia, Thrombocytopenia, Acute on chronic renal failure Disposition: HOSPITALIZED Disposition Time: 19:25 Patient Plan: Admission Condition: STABLE
[2018-01-18 15:52] LABS: VENOUS BLOOD GAS BASE EXCESS -3.8 mmol/L (0.0-2.0); VENOUS BLOOD GAS PO2 212 mm/Hg (30-55); VENOUS BLOOD PH 7.45 (7.32-7.43)
[2018-01-18 15:53] LABS: BASO # 0.04 K/mm3 (0.0-2.0); BASO % 0.2 % (0.0-3.0); EOS # 0.1 (0.0-0.7); EOS % 0.5 % (1.5-5.0); GRAN # 19.69 (1.4-6.5); GRAN % 80.7 % (50.0-68.0); HEMOGLOBIN 10.7 g/dL (14.0-18.0); LYMPH # 2.9 (1.2-3.4); LYMPH % 11.8 % (22.0-35.0); MEAN CELL VOLUME 99.4 fl (80.0-105.0); MEAN CORPUSCULAR HEMOGLOBIN 33.5 pg (25.0-35.0); MEAN CORPUSCULAR HGB CONC 33.8 g/dl (31.0-37.0); MEAN PLATELET VOLUME 9.5 fl (7.0-11.0); MONO # 1.7 (0.1-0.6); MONO % 6.8 % (1.0-6.0); RBC 3.19 10^6/uL (3.5-6.1); RED CELL DISTRIBUTION WIDTH 15.5 % (11.5-14.5); WHITE BLOOD COUNT 24.4 10^3/uL (4.5-11.0)
--- NOTE | 2018-01-18 15:54 | RAD ---
Date of service: 01/18/2018 HISTORY: cough COMPARISON: 11/27/2017 FINDINGS: LUNGS: No active pulmonary disease. PLEURA: No significant pleural effusion identified, no pneumothorax apparent. CARDIOVASCULAR: No aortic atherosclerotic calcification present. Normal cardiac size. No pulmonary vascular congestion. OSSEOUS STRUCTURES: No significant abnormalities. VISUALIZED UPPER ABDOMEN: Normal. OTHER FINDINGS: None. IMPRESSION: No active disease.
[2018-01-18 16:01] LABS: INR 1.09; PARTIAL THROMBOPLASTIN TIME 26.2 Seconds (25.1-36.5); PROTHROMBIN TIME 12.5 SECONDS (9.4-12.5)
[2018-01-18 16:09] LABS: CALCIUM 9.8 mg/dL (8.4-10.5)
[2018-01-18 16:20] LABS: TROPONIN I 0.02 ng/mL
[2018-01-18 18:21] LABS: URINE BILIRUBIN NEGATIVE (NEGATIVE); URINE BLOOD LARGE (NEGATIVE); URINE GLUCOSE (UA) NEGATIVE (NEGATIVE); URINE LEUKOCYTE ESTERASE LARGE Leu/uL (NEGATIVE); URINE PROTEIN 100 mg/dL (<30 mg/dL); URINE UROBILINOGEN 0.2 E.U./dL (<1 E.U./dL)
[2018-01-18 18:24] LABS: URINE APPEARANCE CLOUDY (CLEAR); URINE COLOR LIGHT YELLOW (YELLOW)
[2018-01-18 18:32] LABS: URINE WBC TNTC /hpf (0-6)
[2018-01-18 18:33] LABS: URINE BACTERIA MANY (NEG)
--- NOTE | 2018-01-18 18:43 | CARD ---
APPROVED REPORT Date of service: 01/18/2018 EKG Measurement Heart [id number] <Conclusion> Sinus tachycardia Anteroseptal infarct, age undetermined Abnormal ECG
[2018-01-18] MEDS ORDERED: cefTRIAXone 1 gm 1 GM/100 ML BAG IVPB STA (19:12)
[2018-01-18] MEDS ORDERED: levoFLOXacin 750 MG TAB PO STA (19:29)
[2018-01-18] MEDS: Sodium Chloride 0.9% 1,000 ML IV SCH (21:14)
[2018-01-19] MEDS ORDERED: cefTRIAXone 1 gm 1 GM/100 ML BAG IV SCH (06:40)
[2018-01-19 09:25] LABS: BASO # 0.02 K/mm3 (0.0-2.0); BASO % 0.1 % (0.0-3.0); GRAN # 16.94 (1.4-6.5); GRAN % 77.9 % (50.0-68.0); HEMOGLOBIN 11.6 g/dL (14.0-18.0); LYMPH # 3.6 (1.2-3.4); LYMPH % 16.4 % (22.0-35.0); MEAN CELL VOLUME 100.9 fl (80.0-105.0); MEAN CORPUSCULAR HEMOGLOBIN 34.2 pg (25.0-35.0); MEAN CORPUSCULAR HGB CONC 33.9 g/dl (31.0-37.0); MEAN PLATELET VOLUME 10.1 fl (7.0-11.0); MONO # 1.2 (0.1-0.6); MONO % 5.6 % (1.0-6.0); RBC 3.39 10^6/uL (3.5-6.1); RED CELL DISTRIBUTION WIDTH 15.9 % (11.5-14.5); WHITE BLOOD COUNT 21.8 10^3/uL (4.5-11.0)
[2018-01-19 09:35] LABS: ALB/GLOB RATIO 0.9 (1.1-1.8); ALBUMIN 3.9 g/dL (3.0-4.8); CALCIUM 10.1 mg/dL (8.4-10.5)
--- NOTE | 2018-01-19 10:08 | CP.PCM.PCO ---
Physician Communication Note - Physician Communication Note Physician Communication Note: Per Dr. Schneider pt getting midline, no longer need for central line
[2018-01-19] MEDS: Sodium Chloride 0.9% 1,000 ML IV SCH ×3 (11:26→21:54)
--- NOTE | 2018-01-19 13:40 | CP.PCM.CON ---
<Dionna Albrecht - Last Filed: 01/19/18 13:30> History of Present Illness - History of Present Illness History of Present Illness: CC: Productive Cough HPI: 62 M with a PMHx of Burkitt's lymphoma diagnosed 2012, complicated by shingles infection contracted that same year that rendered patient paraplegia, with neurogenic bowel and bladder requiring chronic solorio, that was [place] [facility] [place] with complaints of a cough and inability to clear secretions x 4 days. Pt states that he has had a productive cough white in color and a sensation of not being able to clear his secretions. He denies headache or dizziness, no chest pain, no sore throat, no rhinorrhea, denies dysphagia, no diarrhea, no dysuria, no abdominal pain. 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 Home visiting nurse daily for bowel regimen and wound care Allergies : baclofen, zolpidem Review of Systems - Review of Systems Review of Systems: as per HPI otherwise negative Past Patient History - Infectious Disease Hx of Infectious Diseases: None - Tetanus Immunizations Tetanus Immunization: Unknown - Past Social History Smoking Status: Former Smoker - CARDIAC Hx Cardiac Disorders: Yes Hx Hypertension: Yes - PULMONARY Hx Respiratory Disorders: Yes Hx Sleep Apnea: Yes - NEUROLOGICAL Hx Neurological Disorder: No - HEENT Hx HEENT Problems: No - RENAL Hx Renal Failure: Yes - ENDOCRINE/METABOLIC Hx Endocrine Disorders: No - HEMATOLOGICAL/ONCOLOGICAL Hx Blood Disorders: Yes Hx Cancer: Yes (burkitt's lymphoma) - INTEGUMENTARY Hx Dermatological Problems: No - MUSCULOSKELETAL/RHEUMATOLOGICAL Hx Musculoskeletal Disorders: Yes Hx Falls: No Other/Comment: Right arm contracture, paraplegia - GASTROINTESTINAL Hx Gastrointestinal Disorders: No - GENITOURINARY/GYNECOLOGICAL Hx Genitourinary Disorders: No - PSYCHIATRIC Hx Psychophysiologic Disorder: No Hx Substance Use: No - SURGICAL HISTORY Other/Comment: amp rt 5th toe/tor left foot - ANESTHESIA Hx Anesthesia Reactions: No Hx Malignant Hyperthermia: No Meds Allergies/Adverse Reactions: Allergies Allergy/AdvReac Type Severity Reaction Status Date / Time baclofen Allergy RASH Verified 06/30/17 00:24 zolpidem [From Ambien] Allergy RASH Verified 06/30/17 00:24 - Medications Medications: Current Medications Acetaminophen (Tylenol 325mg Tab) 650 mg PO Q4H PRN PRN Reason: Fever >100.4 F Acyclovir (Zovirax) 200 mg PO BID [facility]; Protocol Last Admin: 01/19/18 11:23 Dose: 200 mg Amlodipine Besylate (Norvasc) 5 mg PO DAILY [facility] Last Admin: 01/19/18 11:22 Dose: 5 mg Diphenhydramine HCl (Benadryl) 25 mg PO HS PRN PRN Reason: Insomnia Docusate Sodium (Colace) 100 mg PO DAILY [facility] Last Admin: 01/19/18 11:22 Dose: 100 mg Gabapentin (Neurontin) 100 mg PO BID [facility]; Protocol Last Admin: 01/19/18 11:22 Dose: 100 mg Sodium Chloride (Sodium Chloride 0.9%) 1,000 mls @ 100 mls/hr IV .Q10H [facility] Last Admin: 01/19/18 11:27 Dose: 100 mls/hr Doxycycline Hyclate 100 mg/ (Sodium Chloride) 100 mls @ 100 mls/hr IVPB Q12 [facility]; Protocol Cefepime HCl (Maxipime 1gm) 1 gm in 100 mls @ 100 mls/hr IVPB Q24H [facility]; Protocol Quetiapine Fumarate (Seroquel) 25 mg PO HS [facility]; Protocol Physical Exam - Constitutional Appears: No Acute Distress - Head Exam Head Exam: ATRAUMATIC, NORMAL INSPECTION, NORMOCEPHALIC - Eye Exam Eye Exam: EOMI, Normal appearance, PERRL Pupil Exam: NORMAL ACCOMODATION, PERRL - ENT Exam ENT Exam: Mucous Membranes Dry - Respiratory Exam Respiratory Exam: Decreased Breath Sounds, Rhonchi (b/l) - Cardiovascular Exam Cardiovascular Exam: Tachycardia, REGULAR RHYTHM - GI/Abdominal Exam GI & Abdominal Exam: Normal Bowel Sounds, Soft. absent: Tenderness - Extremities Exam Additional comments: pressure ulcer ft - Neurological Exam Neurological exam: Alert, CN II-XII Intact, Normal Gait, Oriented x3, Reflexes Normal - Psychiatric Exam Psychiatric exam: Normal Affect, Normal Mood - Skin Additional comments: sacral decub ulcer Results - Vital Signs Recent Vital Signs: Last Vital Signs Temp 99.1 F 01/19/18 09:30 Pulse 104 H 01/19/18 11:22 Resp 20 01/19/18 09:30 BP 109/67 01/19/18 11:22 Pulse Ox 90 L 01/19/18 09:30 - Labs Result Diagrams: 01/19/18 09:15 01/19/18 09:15 Labs: Laboratory Results - last 24 hr 01/18/18 01/18/18 01/18/18 15:17 15:38 15:38 WBC 24.4 H RBC 3.19 L Hgb 10.7 L Hct 31.7 L MCV 99.4 D MCH 33.5 MCHC 33.8 RDW 15.5 H Plt Count 89 L MPV 9.5 Gran % 80.7 H Lymph % (Auto) 11.8 L [place] % (Auto) 6.8 H Eos % (Auto) 0.5 L Baso % (Auto) 0.2 Gran # 19.69 H Lymph # (Auto) 2.9 [place] # (Auto) 1.7 H Eos # (Auto) 0.1 Baso # (Auto) 0.04 PT 12.5 INR 1.09 APTT 26.2 pO2 VBG pH VBG pCO2 VBG HCO3 VBG Total CO2 VBG O2 Sat (Calc) VBG Base Excess VBG Potassium Sodium Chloride Glucose Lactate FiO2 Potassium Carbon Dioxide Anion Gap BUN Creatinine Est GFR ( Amer) Est GFR (Non-Af Amer) Random Glucose Calcium Phosphorus Magnesium Total Bilirubin AST ALT Alkaline Phosphatase Lactate Dehydrogenase Total Creatine Kinase Troponin I NT-Pro-B Natriuret Pep Total Protein Albumin Globulin Albumin/Globulin Ratio Venous Blood Potassium Urine Color Urine Appearance Urine pH Ur Specific [place] Urine Protein Urine Glucose (UA) Urine Ketones Urine Blood Urine Nitrate Urine Bilirubin Urine Urobilinogen Ur Leukocyte Esterase Urine RBC Urine WBC Ur Epithelial Cells Urine Bacteria Influenza Typ A,B (EIA) Negative for flu a/b 01/18/18 01/18/18 01/18/18 15:38 15:38 18:08 WBC RBC Hgb Hct MCV MCH MCHC RDW Plt Count MPV Gran % Lymph % (Auto) [place] % (Auto) Eos % (Auto) Baso % (Auto) Gran # Lymph # (Auto) [place] # (Auto) Eos # (Auto) Baso # (Auto) PT INR APTT pO2 212 H VBG pH 7.45 H VBG pCO2 27.0 L VBG HCO3 18.8 L VBG Total CO2 19.6 L VBG O2 Sat (Calc) 99.4 H VBG Base Excess -3.8 L VBG Potassium 4.5 Sodium 135.0 138 Chloride 101.0 101 Glucose 94 Lactate 0.9 FiO2 21.0 Potassium 4.5 Carbon Dioxide 18 L Anion Gap 23 H BUN 106 H Creatinine 6.9 H Est GFR ( Amer) 10 Est GFR (Non-Af Amer) 8 Random Glucose 94 Calcium 9.8 Phosphorus Magnesium 2.1 Total Bilirubin AST ALT Alkaline Phosphatase Lactate Dehydrogenase 354 Total Creatine Kinase 28 L Troponin I 0.02 NT-Pro-B Natriuret Pep 2720 H Total Protein Albumin Globulin Albumin/Globulin Ratio Venous Blood Potassium 4.5 Urine Color Light yellow Urine Appearance Cloudy Urine pH 8.0 Ur Specific [place] 1.025 Urine Protein 100 H Urine Glucose (UA) Negative Urine Ketones Trace H Urine Blood Large H Urine Nitrate Negative Urine Bilirubin Negative Urine Urobilinogen 0.2 Ur Leukocyte Esterase Large H Urine RBC 2 - 5 Urine WBC Tntc Ur Epithelial Cells None Urine Bacteria Many Influenza Typ A,B (EIA) 01/19/18 01/19/18 09:15 09:15 WBC 21.8 H RBC 3.39 L Hgb 11.6 L Hct 34.2 L MCV 100.9 MCH 34.2 MCHC 33.9 RDW 15.9 H Plt Count 94 L MPV 10.1 Gran % 77.9 H Lymph % (Auto) 16.4 L [place] % (Auto) 5.6 Eos % (Auto) 0.0 L Baso % (Auto) 0.1 Gran # 16.94 H Lymph # (Auto) 3.6 H [place] # (Auto) 1.2 H Eos # (Auto) 0.0 Baso # (Auto) 0.02 PT INR APTT pO2 VBG pH VBG pCO2 VBG HCO3 VBG Total CO2 VBG O2 Sat (Calc) VBG Base Excess VBG Potassium Sodium 137 Chloride 100 Glucose Lactate FiO2 Potassium 4.9 Carbon Dioxide 17 L Anion Gap 25 H BUN 111 H Creatinine 7.3 H Est GFR ( Amer) 9 Est GFR (Non-Af Amer) 8 Random Glucose 100 Calcium 10.1 Phosphorus 7.5 H Magnesium 2.2 Total Bilirubin 0.8 AST 35 ALT 26 Alkaline Phosphatase 98 Lactate Dehydrogenase Total Creatine Kinase Troponin I NT-Pro-B Natriuret Pep Total Protein 8.1 Albumin 3.9 Globulin 4.2 Albumin/Globulin Ratio 0.9 L Venous Blood Potassium Urine Color Urine Appearance Urine pH Ur Specific [place] Urine Protein Urine Glucose (UA) Urine Ketones Urine Blood Urine Nitrate Urine Bilirubin Urine Urobilinogen Ur Leukocyte Esterase Urine RBC Urine WBC Ur Epithelial Cells Urine Bacteria Influenza Typ A,B (EIA) Assessment & Plan - Assessment and Plan (Free Text) Assessment: 62 M with a PMHx of Burkitt's lymphoma diagnosed 2012, complicated by shingles infection contracted that same year that rendered patient paraplegia, with neurogenic bowel and bladder requiring chronic solorio, that was [place] [facility] [place] with complaints of a cough and inability to clear secretions x 4 days admitted for presumed CAP. Severe sepsis due to CAP Burkitt's lymphoma history of herpes zoster CAD HTN GERD chronic renal failure chronic anemia depression and anxiety Plan Started Rocephin, now Cefepime and and Doxycycline pending blood, sputum cx, PCT, urine Legionella Ag, Strep, CXR reviewed, if further hypoxia recommend CT chest will monitor clinically Seen reviewed and discussed with Dr. Mueller <Joseph Mueller - Last Filed: 01/19/18 22:37> Meds - Medications Medications: Current Medications Acetaminophen (Tylenol 325mg Tab) 650 mg PO Q4H PRN PRN Reason: Fever >100.4 F Acyclovir (Zovirax) 200 mg PO BID [facility]; Protocol Last Admin: 01/19/18 17:28 Dose: 200 mg Amlodipine Besylate (Norvasc) 5 mg PO DAILY [facility] Last Admin: 01/19/18 11:22 Dose: 5 mg Diphenhydramine HCl (Benadryl) 25 mg PO HS PRN PRN Reason: Insomnia Docusate Sodium (Colace) 100 mg PO DAILY [facility] Last Admin: 01/19/18 11:22 Dose: 100 mg Gabapentin (Neurontin) 100 mg PO BID [facility]; Protocol Last Admin: 01/19/18 17:28 Dose: 100 mg Home Med (Home Med) 1 unit PO TID [facility] Sodium Chloride (Sodium Chloride 0.9%) 1,000 mls @ 100 mls/hr IV .Q10H [facility] Last Admin: 01/19/18 21:54 Dose: 100 mls/hr Doxycycline Hyclate 100 mg/ (Sodium Chloride) 100 mls @ 100 mls/hr IVPB Q12 [facility]; Protocol Last Admin: 01/19/18 21:52 Dose: 100 mls/hr Cefepime HCl (Maxipime 1gm) 1 gm in 100 mls @ 100 mls/hr IVPB Q24H [facility]; Protocol Last Admin: 01/19/18 14:46 Dose: 100 mls/hr Quetiapine Fumarate (Seroquel) 25 mg PO HS [facility]; Protocol Last Admin: 01/19/18 21:52 Dose: 25 mg Results - Vital Signs Recent Vital Signs: Last Vital Signs Temp 98.3 F 01/19/18 22:00 Pulse 92 H 01/19/18 22:00 Resp 18 01/19/18 22:00 BP 125/83 01/19/18 22:00 Pulse Ox 92 L 01/19/18 22:00 - Labs Result Diagrams: 01/19/18 09:15 01/19/18 09:15 Labs: Laboratory Results - last 24 hr 01/19/18 01/19/18 01/19/18 09:15 09:15 09:15 WBC 21.8 H RBC 3.39 L Hgb 11.6 L Hct 34.2 L MCV 100.9 MCH 34.2 MCHC 33.9 RDW 15.9 H Plt Count 94 L MPV 10.1 Gran % 77.9 H Lymph % (Auto) 16.4 L [place] % (Auto) 5.6 Eos % (Auto) 0.0 L Baso % (Auto) 0.1 Gran # 16.94 H Lymph # (Auto) 3.6 H [place] # (Auto) 1.2 H Eos # (Auto) 0.0 Baso # (Auto) 0.02 Sodium 137 Potassium 4.9 Chloride 100 Carbon Dioxide 17 L Anion Gap 25 H BUN 111 H Creatinine 7.3 H Est GFR ( Amer) 9 Est GFR (Non-Af Amer) 8 Random Glucose 100 Calcium 10.1 Phosphorus 7.5 H Magnesium 2.2 Total Bilirubin 0.8 AST 35 ALT 26 Alkaline Phosphatase 98 Total Protein 8.1 Albumin 3.9 Globulin 4.2 Albumin/Globulin Ratio 0.9 L Procalcitonin 2.13 H Ur L.pneumophila Ag 01/19/18 17:00 WBC RBC Hgb Hct MCV MCH MCHC RDW Plt Count MPV Gran % Lymph % (Auto) [place] % (Auto) Eos % (Auto) Baso % (Auto) Gran # Lymph # (Auto) [place] # (Auto) Eos # (Auto) Baso # (Auto) Sodium Potassium Chloride Carbon Dioxide Anion Gap BUN Creatinine Est GFR ( Amer) Est GFR (Non-Af Amer) Random Glucose Calcium Phosphorus Magnesium Total Bilirubin AST ALT Alkaline Phosphatase Total Protein Albumin Globulin Albumin/Globulin Ratio Procalcitonin Ur L.pneumophila Ag Negative Assessment & Plan - Assessment and Plan (Free Text) Assessment: Infectious diseases Attending Physician Attestation Patient seen and examined, discussed with medical office technician. I have reviewed the patient's history of present illness, past medical, social, personal and family histories, pertinent physical exam findings, course so far in this [facility], pertinent laboratory and imaging results. I agree with the above findings, assessment and plan. In addition, we have started Cefepime and Doxycycline for this patient with probable acute bronchitis, R/O UTI. Reviewed CXR. Will follow up blood and urine cx and will monitor clinically.
[2018-01-19] MEDS: Cefepime 1gm in NS 100ml 1 GM/100 ML BAG IVPB SCH (14:46)
--- NOTE | 2018-01-19 15:17 | HP ---
DATE OF EXAM: 01/18/2018 CHIEF COMPLAINT: Cough, phlegm, congestion, urinary tract infection and fever. HISTORY OF PRESENT ILLNESS: This is apparently unfortunately bed confined 62-year-old man with contractures of hands and feet, who comes to the emergency room with cough with sputum production, difficulty clearing his secretions and cloudy urine. He is evaluate in the emergency room, IV access is an obvious problem, surgical team is called, I advised oral Levaquin and immediate IV access for antibiotics. and that the patient be admitted for continued the antibiotic, ID building energy consultant to see and home medications . PAST MEDICAL HISTORY: Positive for Burkitt's lymphoma involving the spine and involving the central nervous system, status post intrathecal chemo. He also had a episode of zoster which left him paraplegic, neurogenic bladder and bowel, history of coronary artery disease, hypertension, and anemia as well as decubitus ulcers. SOCIAL HISTORY: He does not smoke and does not drink alcohol. ALLERGIES: HE IS KNOWN TO BE SENSITIVE TO BACLOFEN AND AMBIEN, WHICH CAUSED A RASH IN THE PAST. HOME MEDICATIONS: Include amlodipine and gabapentin as well as bowel prep of MiraLax and Colace. REVIEW OF SYSTEMS: Not possible due to the patient's difficulty of speaking. PHYSICAL EXAMINATION GENERAL: Most unfortunate and chronically ill 62-year-old man, in bed, slot #1 of emergency room. He has a wet congested cough. He is awake and tries to communicate; although, is slow and difficult. HEENT: Conjunctivae are pink. Mucous membranes are moist. LUNGS: Congested with some upper airway rhonchi in all lung [place]. HEART: Regular and not tachycardic. ABDOMEN: Soft and nontender. EXTREMITIES: As mentioned contractions of the fingers and wrist of both hands as well as the feet. IMPRESSION: 1. Bronchitis with a wet, phlegmy congested cough. 2. Urinary tract infection. 3. Sacral decubitus. 4. Bed confined, chronically ill. 5. Status post lymphoma. 6. Contractures of the extremities. 7. Hypertension. 8. Coronary artery disease. PLAN: surgical consultation for IV access, antibiotics. I spoke with patient's the night of admission, again do not resuscitate should be remain in place based on patient's overall condition and prior conversations with the patient and family. Linden Grossman MD [facility] # [id number]
[2018-01-19] MEDS ORDERED: Pneumococcal 23-Valent Vaccine IM ONE (15:34)
[2018-01-19] MEDS ORDERED: Influenza Vaccine 60 mcg/0.5 mL SYR (4YR UP) IM ONE (15:34)
[2018-01-20 07:05] LABS: BASO # 0.02 K/mm3 (0.0-2.0); BASO % 0.1 % (0.0-3.0); EOS # 0.1 (0.0-0.7); GRAN # 9.37 (1.4-6.5); GRAN % 66.1 % (50.0-68.0); LYMPH # 3.5 (1.2-3.4); LYMPH % 24.9 % (22.0-35.0); MEAN CELL VOLUME 100.3 fl (80.0-105.0); MEAN CORPUSCULAR HEMOGLOBIN 32.9 pg (25.0-35.0); MEAN CORPUSCULAR HGB CONC 32.8 g/dl (31.0-37.0); MEAN PLATELET VOLUME 9.3 fl (7.0-11.0); MONO # 1.1 (0.1-0.6); MONO % 7.9 % (1.0-6.0); RBC 2.92 10^6/uL (3.5-6.1); RED CELL DISTRIBUTION WIDTH 15.8 % (11.5-14.5); WHITE BLOOD COUNT 14.2 10^3/uL (4.5-11.0)
[2018-01-20 07:16] LABS: HEMOGLOBIN 9.6 g/dL (14.0-18.0)
--- NOTE | 2018-01-20 08:12 | CON ---
DATE: 01/19/2018 REASON FOR CONSULTATION: Acute kidney injury superimposed on chronic kidney disease stage V. HISTORY OF PRESENT ILLNESS: A 62-year-old male known to me from prior evaluation. This is an unfortunate young male with a history of Burkitt's lymphoma diagnosed since 2012, complicated by shingles infection, paraplegia, neurogenic bladder, advanced chronic kidney disease stage V, prerenal azotemia, anemia, chronic sacral ulcer, depression, is admitted with complaints of cough, choking sensation, difficulty clearing secretions. No fever, no chills, no abdominal pain, no nausea, no vomiting and no diarrhea. Found to be normotensive at the time of admission, afebrile. Found to have WBC count of 24,000. Elevated BUN of 106 with a creatinine of 6.9. Baseline creatinine around 6.0. PAST MEDICAL AND SURGICAL HISTORY: Burkitt's lymphoma, herpes zoster, CAD, hypertension, chronic kidney disease stage V, multiple episodes of acute kidney injury, anemia of chronic kidney disease, decubitus ulcer and depression. FAMILY HISTORY: Noncontributory. SOCIAL HISTORY: Ex-smoker, no alcohol use, no IV drug abuse. ALLERGIES: BACLOFEN AND ZOLPIDEM. MEDICATIONS: Sodium bicarbonate 650 t.i.d., Seroquel 25, melatonin, Fosrenol, gabapentin, doxycycline, Colace, amlodipine, acyclovir and Tylenol. REVIEW OF SYSTEMS: All systems reviewed, pertinent positives as mentioned in history presenting illness, rest unremarkable. PHYSICAL EXAMINATION: GENERAL: Obese, middle-aged male lying in bed. VITAL SIGNS: Blood pressure 112/73, heart rate 104, respiratory rate 18 and temperature 98. HEENT: Normocephalic, atraumatic, positive pallor. NECK: Supple, no JVD. LUNGS: Bilateral rhonchi, bilateral equal expansion, no rales. CARDIAC: S1 and S2, regular rate and rhythm, no murmur, no rub. ABDOMEN: Obese, distended, soft, nontender, bowel sounds present. EXTREMITIES: No amputations. LABORATORY DATA: WBC 21.8, hemoglobin 11.6, hematocrit 34 and platelets 94 with polys 78%. Sodium 137, potassium 4.9, chloride 100, CO2 of 17, BUN 111, creatinine 7.3, glucose 100, calcium 10.1, phosphorus 7.5, magnesium 2.2, BNP 2720 and albumin 3.9. Urinalysis; yellow, cloudy, pH 8.0, specific gravity 1025, protein 100, ketones trace, blood large, leukocyte esterase large. Urine culture gram-negative sandrita. Blood culture no growth so far. CURRENT MEDICATIONS: Benadryl, Colace, doxycycline, cefepime, Neurontin, amlodipine, normal saline at 100, Tylenol and Zovirax. ASSESSMENT: 1. Acute kidney injury superimposed on chronic kidney disease stage V. 2. Sepsis/leukocytosis, source pulmonary versus . 3. History of anemia, currently hemoconcentrated. 4. Hyperphosphatemia. 5. Multiple medical problems. PLAN: 1. Continue IV fluids. 2. Continue antibiotics as per ID recommendations. 3. Monitor urine output. 4. Monitor electrolytes. 5. Continue phosphate binders. 6. No plans for renal replacement therapy. Thank you for the courtesy of this consultation. We will follow this patient with you. Madina Mantilla MD
[2018-01-20] MEDS: LANTHANUM 500 MG PO SCH ×3 (09:29→18:47)
[2018-01-20] MEDS: Cefepime 1gm in NS 100ml 1 GM/100 ML BAG IVPB SCH (14:28)
[2018-01-20] MEDS: Sodium Chloride 0.9% 1,000 ML IV SCH ×2 (14:31→22:16)
--- NOTE | 2018-01-20 18:56 | PN ---
DATE: 01/20/2018 SUBJECTIVE: The patient is in bed, in no acute distress. The patient was seen earlier. PHYSICAL EXAMINATION: VITAL SIGNS: On exam, temperature is 98, heart rate of 91, blood pressure is 108/70, respiratory rate of 18. HEENT: Unremarkable. NECK: Supple. LUNGS: Have decreased breath sounds. HEART: Normal S1, S2. ABDOMEN: Soft. LABORATORY EXAMINATION: Reveals a white count of 14,200, hemoglobin of 9, platelets of 81. Chemistries reveal a BUN of 103, creatinine of 6.3. Procalcitonin is 2.13. Urinalysis is noted, and serology reveals the urine for Legionella antigen is negative, influenza is negative. Microbiology reveals the urine culture as E. coli which is ESBL positive, and the blood cultures are negative and sacral cultures are pending. Review of orders reveals the patient to be on cefepime, acyclovir and doxycycline. The urinalysis does show large leukocyte esterase, wbc's and many bacteria. ASSESSMENT AND PLAN: This is a 62-year-old male with past medical history significant for Burkitt lymphoma complicated by shingles and the patient with paraplegia, neurogenic bladder and chronic [place] catheter with chronic renal failure, depression, anemia, anxiety, and now admitted with leukocytosis and severe sepsis due to community-acquired pneumonia and Burkitt lymphoma, on cefepime and doxycycline. The patient with a positive extended-spectrum beta-lactamase in the urine culture. We will discontinue the cefepime, and Escherichia coli extended-spectrum beta-lactamase and start the patient on meropenem. We will also place the patient on isolation. We will order meropenem every 12 hours at [address] the patient on the extended-spectrum beta-lactamase contact precautions. Rolly Hand MD
[2018-01-20 21:54] LABS: IRON 93 ug/dL (45-180)
[2018-01-20 22:03] LABS: % IRON SATURATION 74 % (20-55); TOTAL IRON BINDING CAPACITY 126 ug/dL (261-462)
[2018-01-20 22:52] VITALS: RESP 20
--- NOTE | 2018-01-21 02:54 | PN ---
DATE: 01/19/2018 SUBJECTIVE: The patient is seen lying in bed. He is awake, he is alert, he is comfortable. He denies any pain. He still has a cough. PHYSICAL EXAMINATION: GENERAL: Elderly male, lying in bed. VITAL SIGNS: Blood pressure 106/57, heart rate 80, respiratory rate 18, temperature 98.9. HEENT: Normocephalic, atraumatic, positive pallor. NECK: Supple. No JVD. LUNGS: Bilateral equal air entry, bilateral rhonchi, no rales. CARDIAC: S1 and S2, regular rate and rhythm, no murmur, no rub. ABDOMEN: Obese, distended, soft, nontender, bowel sounds present. EXTREMITIES: Trace lower extremity edema. INTAKE AND OUTPUT: 1080/1600. LABORATORY DATA: WBC 14, hemoglobin 9, hematocrit 29, platelets 81. Sodium 139, potassium 4.4, chloride 107, CO2 of 19, BUN 103, creatinine 6.3, glucose 79, calcium 9, albumin 3.9. Wound culture Gram-negative sandrita. Urine culture Gram-negative sandrita. Blood cultures no growth so far. CURRENT MEDICATIONS: Benadryl, Colace, doxycycline, meropenem, Motrin, gabapentin, amlodipine 5, normal saline at 100, Tylenol, Zovirax, cefepime. ASSESSMENT: 1. Acute kidney injury superimposed on chronic kidney disease stage V. Resolving acute kidney injury, largely prerenal azotemia. 2. Urinary tract infection. 3. Possible pneumonia. 4. Wound infection. 5. History of Burkitt's lymphoma and paraplegia. 6. Anemia of chronic kidney disease. PLAN: 1. Continue IV fluids. 2. Continue antibiotics. 3. Check electrolyes 4. check iron stores. Madina Mantilla MD MTDD
--- NOTE | 2018-01-21 08:50 | CP.PCM.PN ---
<Dionna Albrecht - Last Filed: 01/21/18 17:01> Subjective - Date & Time of Evaluation Date of Evaluation: 01/21/18 Time of Evaluation: 08:00 - Subjective Subjective: ID Progress Note - Dr Mueller Patient was seen and examined at bedside. As per nursing staff, no acute or adverse events overnight. No acute complaints at this time. Pt has solorio draining freely, sacral decubitus ulcer dressed. Pt denied fever, chills, shortness of breath, chest pains, abdominal pains, cough, nausea, vomiting, diarrhea, constipation, or urinary symptoms. Objective - Vital Signs/Intake and Output Vital Signs (last 24 hours): Temp Pulse Resp BP Pulse Ox 97.7 F 72 20 119/75 94 L 01/20/18 22:50 01/20/18 22:50 01/20/18 22:50 01/20/18 22:50 01/20/18 22:50 Intake and Output: 01/21/18 01/21/18 06:59 18:59 Intake Total 360 Output Total 1100 Balance -740 - Medications Medications: Current Medications Acetaminophen (Tylenol 325mg Tab) 650 mg PO Q4H PRN PRN Reason: Fever >100.4 F Acyclovir (Zovirax) 200 mg PO BID KEITH; Protocol Last Admin: 01/20/18 19:21 Dose: 200 mg Amlodipine Besylate (Norvasc) 5 mg PO DAILY KE[facility] Last Admin: 01/20/18 11:51 Dose: 5 mg Diphenhydramine HCl (Benadryl) 25 mg PO HS PRN PRN Reason: Insomnia Last Admin: 01/20/18 23:42 Dose: 25 mg Docusate Sodium (Colace) 100 mg PO DAILY KEITH Last Admin: 01/20/18 11:43 Dose: 100 mg Gabapentin (Neurontin) 100 mg PO BID KEITH; Protocol Last Admin: 01/20/18 19:21 Dose: 100 mg Sodium Chloride (Sodium Chloride 0.9%) 1,000 mls @ 100 mls/hr IV .Q10H KEITH Last Admin: 01/20/18 22:16 Dose: 100 mls/hr Doxycycline Hyclate 100 mg/ (Sodium Chloride) 100 mls @ 100 mls/hr IVPB Q12 KEITH; Protocol Last Admin: 01/20/18 22:17 Dose: 100 mls/hr Meropenem 250 mg/ Sodium (Chloride) 100 mls @ 25 mls/hr IVPB Q12H KEITH; Protocol Stop: 01/27/18 16:46 Last Admin: 01/21/18 05:41 Dose: 25 mls/hr Ibuprofen (Motrin Tab) 400 mg PO BID PRN PRN Reason: Pain, moderate (4-7) Last Admin: 01/20/18 16:17 Dose: 400 mg Quetiapine Fumarate (Seroquel) 25 mg PO HS KEITH; Protocol Last Admin: 01/20/18 22:17 Dose: 25 mg - Labs Labs: 01/20/18 06:20 01/20/18 08:00 PT 12.5 SECONDS (9.4-12.5) 01/18/18 15:38 INR 1.09 01/18/18 15:38 APTT 26.2 Seconds (25.1-36.5) 01/18/18 15:38 - Constitutional Appears: No Acute Distress, Chronically Ill - Head Exam Head Exam: ATRAUMATIC, NORMAL INSPECTION, NORMOCEPHALIC - Eye Exam Eye Exam: EOMI, Normal appearance, PERRL Pupil Exam: NORMAL ACCOMODATION, PERRL - ENT Exam ENT Exam: Mucous Membranes Dry - Respiratory Exam Respiratory Exam: Decreased Breath Sounds - Cardiovascular Exam Cardiovascular Exam: REGULAR RHYTHM, +S1, +S2. absent: Murmur - GI/Abdominal Exam GI & Abdominal Exam: Soft, Normal Bowel Sounds. absent: Tenderness - Extremities Exam Additional comments: rt upper extremity contracted - Neurological Exam Neurological Exam: Alert, Awake, CN II-XII Intact, Oriented x3 - Psychiatric Exam Psychiatric exam: Normal Affect, Normal Mood - Skin Additional comments: sacral decubitus ulcer dressed Assessment and Plan - Assessment and Plan (Free Text) Assessment: 62 M with a PMHx of Burkitt's lymphoma diagnosed 2012, complicated by shingles infection contracted that same year that rendered patient paraplegia, with neurogenic bowel and bladder requiring chronic solorio, that was brought in to [facility] [place] ED with complaints of a cough and inability to clear secretions x 4 days admitted for presumed CAP. Severe sepsis due to CAP ESBL UTI Burkitt's lymphoma IMproving Leukocytosis history of herpes zoster CAD HTN GERD chronic renal failure chronic anemia depression and anxiety Plan Merrem day 2, Doxycycline Day 3, Acyclovir Day 3 ESBL + E. Coli in urine BCx negative, Sacral wound Cx growing E.Coli PCT elevated, Legionella Ag Negative will monitor clinically Seen reviewed and discussed with Dr. Mueller <Joseph Mueller - Last Filed: 01/21/18 17:52> Objective - Vital Signs/Intake and Output Vital Signs (last 24 hours): Temp Pulse Resp BP Pulse Ox 98.4 F 90 20 125/76 96 01/21/18 14:00 01/21/18 14:00 01/21/18 14:00 01/21/18 14:00 01/21/18 14:00 Intake and Output: 01/21/18 01/21/18 06:59 18:59 Intake Total 360 Output Total 1100 Balance -740 - Medications Medications: Current Medications Acetaminophen (Tylenol 325mg Tab) 650 mg PO Q4H PRN PRN Reason: Fever >100.4 F Acyclovir (Zovirax) 200 mg PO BID KEITH; Protocol Last Admin: 01/21/18 17:32 Dose: 200 mg Amlodipine Besylate (Norvasc) 5 mg PO DAILY [facility] Last Admin: 01/21/18 10:20 Dose: 5 mg Diphenhydramine HCl (Benadryl) 25 mg PO HS PRN PRN Reason: Insomnia Last Admin: 01/20/18 23:42 Dose: 25 mg Docusate Sodium (Colace) 100 mg PO DAILY KEITH Last Admin: 01/21/18 10:04 Dose: 100 mg Gabapentin (Neurontin) 100 mg PO BID KEITH; Protocol Last Admin: 01/21/18 17:32 Dose: 100 mg Sodium Chloride (Sodium Chloride 0.9%) 1,000 mls @ 100 mls/hr IV .Q10H KEITH Last Admin: 01/21/18 10:05 Dose: 100 mls/hr Doxycycline Hyclate 100 mg/ (Sodium Chloride) 100 mls @ 100 mls/hr IVPB Q12 KEITH; Protocol Last Admin: 01/21/18 10:05 Dose: 100 mls/hr Meropenem 250 mg/ Sodium (Chloride) 100 mls @ 25 mls/hr IVPB Q12H KEITH; Protocol Stop: 01/27/18 16:46 Last Admin: 01/21/18 05:41 Dose: 25 mls/hr Ibuprofen (Motrin Tab) 400 mg PO BID PRN PRN Reason: Pain, moderate (4-7) Last Admin: 01/20/18 16:17 Dose: 400 mg Quetiapine Fumarate (Seroquel) 25 mg PO HS KEITH; Protocol Last Admin: 01/20/18 22:17 Dose: 25 mg - Labs Labs: 01/21/18 09:30 01/21/18 09:30 PT 12.5 SECONDS (9.4-12.5) 01/18/18 15:38 INR 1.09 01/18/18 15:38 APTT 26.2 Seconds (25.1-36.5) 01/18/18 15:38 Assessment and Plan - Assessment and Plan (Free Text) Assessment: Infectious diseases Attending Physician Attestation Patient seen and examined, discussed with director global medical affairs. I have reviewed the patient's history of present illness, past medical, social, personal and family histories, pertinent physical exam findings, course so far in this hospital admission, pertinent laboratory and imaging results. I agree with the above findings, assessment and plan. In addition, will continue Merrem and Doxycycline for this patient with sepsis due to HCAP day 3, to complete 4-7 days of antibiotics.
[2018-01-21 09:41] LABS: MEAN CORPUSCULAR HEMOGLOBIN 33.9 pg (25.0-35.0); MEAN CORPUSCULAR HGB CONC 33.6 g/dl (31.0-37.0); MEAN PLATELET VOLUME 9.5 fl (7.0-11.0); RBC 2.95 10^6/uL (3.5-6.1); RED CELL DISTRIBUTION WIDTH 15.6 % (11.5-14.5); WHITE BLOOD COUNT 9.5 10^3/uL (4.5-11.0)
[2018-01-21 09:57] LABS: CALCIUM 9.2 mg/dL (8.4-10.5)
[2018-01-21] MEDS: Sodium Chloride 0.9% 1,000 ML IV SCH (10:05)
--- NOTE | 2018-01-21 12:09 | PN ---
DAILY PROGRESS NOTE DATE: 01/21/2018 SUBJECTIVE: The patient is a 62-year-old male with a history of Burkitt's lymphoma involving the spine and the central nervous system status post intrathecal chemotherapy, status post herpes zoster with residual paraplegia, history of neurogenic bladder and bowel, history of coronary artery disease, hypertension and anemia and decubitus ulcers who was admitted with mental status changes on January 18, 2018. This is one of several admissions for the patient in the past, usually they are caused by fevers, infections and this admission he was found to have a urinary tract infection. He grew E. coli and Pseudomonas from his urine. E. coli also grew from a sacral decubitus. The patient is a DNR/DNI status as per his and his family's wishes. He has been treated with meropenem 250 mg intravenously every 12 hours, doxycycline and acyclovir. When seen today, the patient is feeling well. He is awake, alert and oriented. His speech is slurred, but that is his baseline. He voices no complaints other than tenderness at the site of his intravenous on the right medial forearm. The patient will require treatment of meropenem for the next 10-14 days; therefore, he will probably need a PICC versus mid line for continued antibiotic therapy. We are considering transfer to transitional care unit for continuation of his antibiotic treatment. The patient is to be reevaluated in the morning. His vital signs, CBC and chemistries were acceptable this morning. BUN is 95 and creatinine is 6.0 which is baseline for the patient and he is being followed by Dr. Mantilla, the [facility]. His white blood cell count is 9.5, hemoglobin and hematocrit are 10.0 and 29.8. So, as above we are continuing with antibiotics. The patient will probably be requiring a PICC line or mid line and transfer to transitional care unit for antibiotic therapy. Jak Grossman MD [facility]
[2018-01-21 15:09] VITALS: BP 125/76; PULSE 90; TEMP 98.4; O2SAT 96
--- NOTE | 2018-01-22 01:45 | PN ---
DATE: 01/21/2018 SUBJECTIVE: The patient is seen lying in bed. He is awake and alert, is comfortable. He denies any pain. Denies any shortness of breath. He complains of cough. He complains of difficulty clearing his secretions. PHYSICAL EXAMINATION: GENERAL: Elderly male, lying in bed. VITAL SIGNS: Blood pressure 125/76, heart rate 90, respiratory rate 20, temperature 98.4. HEENT: Normocephalic, atraumatic. Positive pallor. NECK: Supple. No JVD. LUNGS: Bilateral equal entry. Bilateral rhonchi. CARDIAC: S1 and S2. Regular rate and rhythm. No murmur. No rub. ABDOMEN: Obese, distended, soft, nontender. Bowel sounds present. EXTREMITIES: No lower extremity edema. INTAKE AND OUTPUT: 360/1100. LABORATORY DATA: WBC 9.5, hemoglobin 10, hematocrit 30, platelets 80. Sodium 139, potassium 4.6, chloride 111, CO2 of 18, BUN 95, creatinine 6, glucose 105, calcium 9.2. Iron saturation 74, iron 93, ferritin 4420. CURRENT MEDICATIONS: Benadryl, Colace, doxycycline, meropenem, ibuprofen, gabapentin, amlodipine 5, Seroquel, normal saline at 100, Tylenol, Zovirax. ASSESSMENT: 1. Resolved acute kidney injury. 2. Underlying chronic kidney disease stage 5. 3. Escherichia coli urinary tract infection. 4. Pneumonia. 5. Anemia of chronic disease. 6. History of Burkitt lymphoma. 7. History of zoster, paraplegia. PLAN: 1. Discontinue IV fluids. 2. Continue antibiotics as per ID. 3. P.r.n. Procrit. 4. No plans for renal replacement therapy. Madina Mantilla MD
--- NOTE | 2018-01-24 09:24 | DS ---
HISTORY OF PRESENT ILLNESS: The patient is a 62-year-old male with a history of Burkitt's lymphoma involving the spine and central nervous system status post intrathecal chemotherapy status post herpes zoster with residual paraplegia, history of neurogenic bladder and bowel, history of coronary artery disease, hypertension, anemia and decubitus ulcers who was admitted with mental status changes on 01/18/2018. The patient grew E. coli and Pseudomonas from his urine and E. coli also grew from the sacral decubitus. The patient is a DO NOT RESUSCITATE/DO NOT INTUBATE status as per the patient and his family's wishes. He was treated with meropenem and doxycycline and acyclovir during his hospital stay. He was being followed by Dr. Hand, the Infectious Disease specialist, became apparent that the patient would need 7-10 days of intravenous meropenem. Therefore, arrangements were made for the patient to be transferred to the transitional care for continued antibiotic therapy. So as the bed becomes available, the patient is to be transferred to the TCU. FINAL DIAGNOSES: 1. Leukocytosis. 2. Acute on chronic renal failure. 3. End-stage renal failure. 4. History of coronary artery disease. Jak Grossman MD
== END 2018-01-21 20:13 | DRG 871 ==
LOC: ED 13:25 → ERH 18:49 → 5RNO 01-19 12:39
PROVIDERS: ADMIT Internal Medicine; ATTEND Internal Medicine
DX: A41.9 Sepsis, unspecified organism (principal); N18.6 End stage renal disease; J18.9 Pneumonia, unspecified organism; G82.20 Paraplegia, unspecified; K59.2 Neurogenic bowel, not elsewhere classified; N39.0 Urinary tract infection, site not specified; C83.70 Burkitt lymphoma, unspecified site; N17.9 Acute kidney failure, unspecified; I12.0 Hypertensive chronic kidney disease with stage 5 chronic kidney disease or end stage renal disease; R65.20 Severe sepsis without septic shock; K21.9 Gastro-esophageal reflux disease without esophagitis; F41.9 Anxiety disorder, unspecified; N31.9 Neuromuscular dysfunction of bladder, unspecified; I25.10 Atherosclerotic heart disease of native coronary artery without angina pectoris; D63.1 Anemia in chronic kidney disease; E83.39 Other disorders of phosphorus metabolism; L89.152 Pressure ulcer of sacral region, stage 2; B96.20 Unspecified Escherichia coli [E. coli] as the cause of diseases classified elsewhere; Z74.01 Bed confinement status; Y95 Nosocomial condition; Z66 Do not resuscitate; Z87.891 Personal history of nicotine dependence

== ENCOUNTER 2018-01-21 20:15 | Inpatient (IN) | payer OTHER, MEDICARE ==
[2018-01-21] MEDS ORDERED: Sodium Chloride 0.9% 1,000 ML IV SCH (20:45)
[2018-01-22] MEDS: guaiFENesin DM 200 mg-20 mg/10 ml UD PO PRN (17:21)
--- NOTE | 2018-01-22 17:23 | CON ---
DATE OF CONSULTATION: 01/22/2018 The patient is in bed in no acute distress. The patient was seen earlier today and in Room 315. CHIEF COMPLAINT: Weakness for several days. HISTORY OF PRESENT ILLNESS: This is a 62-year-old male with past medical history significant for Burkitt lymphoma diagnosed in 2012, history of zoster, history of coronary artery disease, hypertension, GERD, renal disease, anemia, depression, anxiety, chronic sacral ulcer, and ex-smoker, who was admitted to acute care with cough and workup was done and now the patient is transferred to Transitional Care for further antibiotic and treatment. PAST MEDICAL HISTORY: Significant for ESBL urinary tract infection with Burkitt lymphoma, zoster, coronary artery disease, hypertension, GERD, renal failure, anemia, depression and anxiety. PAST SURGICAL HISTORY: Significant for bilateral fifth toe amputations in 2017. The patient had a PED. MEDICATIONS: Reviewed and include the Seroquel and ibuprofen and gabapentin. ALLERGIES: BACLOFEN AND ZOLPIDEM. REVIEW OF SYSTEMS: A 14-point review of systems is performed. There are no fevers, no chills, no nausea, no abdominal pain, diarrhea or constipation, no bright red blood per rectum, no melena. PHYSICAL EXAMINATION: GENERAL: The patient is in bed in no acute distress. VITAL SIGNS: Temperature of 98, heart rate of 107, respiratory rate of 20, blood pressure is 117/70. HEENT: Unremarkable. NECK: Supple. LUNGS: Decreased breath sounds. HEART: Normal S1 and S2. ABDOMEN: Soft, nontender. LABORATORY EXAMINATION: The patient's white count reported to be at 9.5 yesterday, it was elevated earlier up to 24,000; hemoglobin of 10. Chemistries are noted with a creatinine of 6.7. Procalcitonin elevated at 2.13. Urinalysis is too numerous to count wbc's, many bacteria. Urine Legionella antigen is negative. Influenza is negative. Microbiology reveals sacral culture and E. coli, which is sensitive. E. coli sensitive to cefazolin, although it is resistant to Bactrim and ampicillin and resistant to Cipro. The patient also had E. coli and Pseudomonas in the urine culture. The Pseudomonas is resistant to cefazolin, intermediate to meropenem, and ESBL E. coli in the urine. The patient had a chest x-ray on 01/18/2018, which showed no active disease. ASSESSMENT/PLAN: This is a 62-year-old male who was admitted to acute care with Burkitt lymphoma and severe sepsis with a community-acquired pneumonia, ESBL E. coli urinary tract infection, and anxiety. He is on meropenem and doxycycline and acyclovir, day #3 of meropenem, day #4 of doxycycline, and day #4 of acyclovir. We will treat with a short course of antibiotics 4-7 days and we will follow closely with you. Review of orders reveals the patient's doxycycline is active, meropenem is active, as is the acyclovir. Rolly Hand MD
[2018-01-22] MEDS: Sodium Chloride 0.9% 1,000 ML IV SCH (22:00)
--- NOTE | 2018-01-23 00:07 | PN ---
DATE: 01/22/2018 SUBJECTIVE: The patient was transferred over to the TCU to complete a course of antibiotic therapy for his ESBL urinary tract infection with E. Coli and Pseudomonas. The patient's creatinine and BUN have improved slightly and are approaching baseline levels, down to 95 and 6. MEDICATIONS: Medication list reviewed. The patient is on Benadryl, Colace, doxycycline, meropenem, Motrin, Neurontin, Norvasc, Robitussin, Seroquel, normal saline 100 mL an hour, Tylenol and Zovirax. OBJECTIVE GENERAL: Intake not charted. Output 825. VITAL SIGNS: Blood pressure 130/82, temperature is 98 degrees, pulse is 98, respiratory rate is 20. HEENT: Shows him to be normocephalic and atraumatic. Conjunctivae are pale. Sclerae nonicteric. NECK: Supple. No neck vein distention. CHEST: Clear to auscultation and percussion. No rales, rhonchi or wheezing. CARDIOVASCULAR: Shows regular rate and rhythm without audible murmurs, rubs or gallops. ABDOMEN: Soft. Bowel sounds normal. No rebound, guarding or masses. EXTREMITIES: Show contracted right upper extremity. He has heel protectors on his feet bilaterally. He has no lower extremity edema. LABORATORY DATA AND IMAGING: CBC: White blood cell count yesterday 9.5 and hemoglobin 10, this is down from a white blood cell count of 24.4. Platelet count is low at 80,000. Chemistries show a BUN of 95, down from 111. His baseline BUN is in the 80-90 range in the last 1 year. Creatinine is down from 7.3 to 6. His baseline creatinine is in the upper 5 to low 6 range. Calcium was 9.2. Last phosphorus was 7.5 with a magnesium of 2.2. Iron saturation was 74% with a ferritin of 4420. Liver enzymes are normal. Albumin is 3.9 and stable. Microbiology: Urine was positive ESBL E. coli on 01/18/2018 with Pseudomonas in the urine as well. Sacral decubitus wound is positive for E. coli. ASSESSMENT: 1. Acute renal failure, superimposed on chronic kidney disease stage V. This appears to have resolved. 2. History of Burkitt's lymphoma. 3. History of do not resuscitate/do not intubate. 4. History of arteriosclerotic heart disease, stable. 5. History of hypertension, controlled on present medical therapy. 6. Extended-spectrum beta-lactamase Escherichia coli and Pseudomonas in his urine, currently on antibiotic therapy. 7. Escherichia coli in sacral decubitus, currently on antibiotic therapy. 8. History of secondary hyperparathyroidism. We will start the patient on binder therapy and the patient should be placed on a renal diet. PLAN: 1. As noted above in Dr. Mantilla's past note, the patient is not a dialysis candidate in light of his prognosis. 2. Would continue IV fluid hydration but decrease the rate as his BUN and creatinine have approached his baseline range. 3. Start binder therapy and renal diet. 4. Continue to monitor labs on a periodic basis in the TCU. 5. Complete the course of antibiotic therapy. 6. Continue comfort measures and supportive care. Jeison Ram MD
[2018-01-23 07:45] LABS: HEMOGLOBIN 9.9 g/dL (14.0-18.0); MEAN CELL VOLUME 100.7 fl (80.0-105.0); MEAN CORPUSCULAR HEMOGLOBIN 33.3 pg (25.0-35.0); MEAN CORPUSCULAR HGB CONC 33.1 g/dl (31.0-37.0); MEAN PLATELET VOLUME 9.1 fl (7.0-11.0); RBC 2.97 10^6/uL (3.5-6.1); RED CELL DISTRIBUTION WIDTH 15.4 % (11.5-14.5); WHITE BLOOD COUNT 11.5 10^3/uL (4.5-11.0)
[2018-01-23 08:10] LABS: ALB/GLOB RATIO 0.8 (1.1-1.8); ALBUMIN 3.2 g/dL (3.0-4.8); CALCIUM 9.7 mg/dL (8.4-10.5)
--- NOTE | 2018-01-23 13:48 | PN ---
DATE: 01/23/2018 SUBJECTIVE: The patient is in bed in no acute distress, nontoxic. PHYSICAL EXAMINATION: VITAL SIGNS: Temperature is 98, blood pressure is 130/80, respiratory rate 20. HEENT: Unremarkable. NECK: Supple. LUNGS: Have decreased breath sounds. HEART: Normal S1, S2. ABDOMEN: Soft. LABORATORY EXAMINATION: Reveals a white count of 11,500. Chemistries are noted. Microbiology reveals the patient's sacral culture is E. coli and the urine culture is E. coli and Pseudomonas. ASSESSMENT AND PLAN: This is a 62-year-old male who is in acute care with Burkitt's lymphoma, severe sepsis, community-acquired pneumonia, extended-spectrum beta-lactamases Escherichia coli in the urine; anxiety, on meropenem, doxycycline and acyclovir. Day #4 of meropenem, day #5 of doxycycline and acyclovir. Would complete a short course of antibiotics. Review of orders reveals the doxycycline to be IV, maybe able to switch to p.o. if he is able to tolerate p.o. and meropenem and . We will change the doxycycline to p.o. also. We will follow with you. Review of the cultures reveals the blood cultures are reported to be negative. The patient does have Escherichia coli in the sacrum and Escherichia coli in the urine. Rolly Hand MD
[2018-01-23] MEDS: Sodium Chloride 0.9% 1,000 ML IV SCH (14:45)
--- NOTE | 2018-01-23 18:34 | PN ---
DATE: 01/23/2018 DAILY PROGRESS NOTE SUBJECTIVE: The patient is a 62-year-old male with a history of Burkitt's lymphoma involving the spine of the central nervous system status post intrathecal chemotherapy status post herpes zoster with residual paraplegia, history of neurogenic bladder and bowel, history of coronary artery disease, hypertension, anemia, decubitus ulcers in the past. The patient was admitted with changes in his mental status on 01/18/2018. During his hospital stay, the workup showed E. coli and Pseudomonas in his urine as well as E. coli in his sacral decubitus. The patient is a DNR/DNI status as per his wishes along with those of his family. He is currently being treated with meropenem, doxycycline, and acyclovir. When seen today, he is watching TV in bed. He is awake, alert, and oriented. His voice is strong. PHYSICAL EXAMINATION LUNGS: Clear anteriorly. HEART: Regular. ABDOMEN: Soft, nontender. EXTREMITIES: Contractures of the right upper extremity are noted. LABORATORY DATA: Laboratory studies from this morning shows white blood cell count to be 11.5, hemoglobin and hematocrit are 9.9 and 29.9 respectively. His sodium is 140, potassium is 5.3, blood urea nitrogen is 89, creatinine is 6.2 which is the baseline for this patient and as per his DNR/DNI status, does not wish to pursue any hemodialysis. PLAN: So, we are continuing with intravenous antibiotic treatment for his leukocytosis for which he was admitted. He is receiving Merrem, doxycycline, and acyclovir. Today is day four out of day seven. We are continuing to follow the patient closely. Jak Grossman MD
[2018-01-24] MEDS: guaiFENesin DM 200 mg-20 mg/10 ml UD PO PRN (06:05)
[2018-01-24 07:06] LABS: HEMOGLOBIN 10.4 g/dL (14.0-18.0); MEAN CELL VOLUME 99.7 fl (80.0-105.0); MEAN CORPUSCULAR HEMOGLOBIN 32.9 pg (25.0-35.0); MEAN PLATELET VOLUME 9.6 fl (7.0-11.0); RBC 3.16 10^6/uL (3.5-6.1); RED CELL DISTRIBUTION WIDTH 15.4 % (11.5-14.5); WHITE BLOOD COUNT 15.4 10^3/uL (4.5-11.0)
[2018-01-24] MEDS: Sodium Chloride 0.9% 1,000 ML IV SCH (07:27)
[2018-01-24 07:29] LABS: ALB/GLOB RATIO 0.9 (1.1-1.8); ALBUMIN 3.6 g/dL (3.0-4.8); CALCIUM 10.2 mg/dL (8.4-10.5)
[2018-01-24] MEDS ORDERED: Sod Polystyrene Sulf 15 gm/60 ml Susp PO ONE ×2 (07:33→10:00)
--- NOTE | 2018-01-24 09:25 | HP ---
DATE OF EXAM: 01/22/2018 HISTORY OF PRESENT ILLNESS: The patient is a 62-year-old male with contractures of his hands and feet. He is unfortunately bed confined who was admitted with [id number] leukocytosis and possible bronchitis on 01/18/2018. On the medical floor, he was being treated with Merrem 250 mg every 12 hours, he also was receiving doxycycline and acyclovir. Cultures grew E. coli from his urine and from a sacral decubitus wound. He also grew Pseudomonas in his urine. The patient did well and as he was going to require full 7 to 10 day course of meropenem. Arrangements were made for the patient to be transferred to the transitional care unit for antibiotic therapy. When seen today, the patient is resting comfortably. OBJECTIVE: GENERAL: He is awake, alert, and oriented. HEAD, EYES, EARS, NOSE AND THROAT: Unremarkable. NECK: Supple with no lymphadenopathy. LUNGS: Clear anteriorly. HEART: Regular. ABDOMEN: Soft, nontender. EXTREMITIES: Show no cyanosis, clubbing or edema. There are contractures especially of the right upper extremity at the elbow and at the wrist as mentioned above. The patient is to continue receiving his antibiotics which include doxycycline 100 mg IV every 12 hours, meropenem 250 mg intravenously every 12 hours and acyclovir 200 mg orally twice a day. We are also continuing with Seroquel 25 mg at bedtime, Norvasc 5 mg once a day, gabapentin 100 mg twice a day, Motrin 400 mg twice a day as needed, Colace 100 mg daily and Benadryl 25 mg at bedtime as needed for insomnia. We will continue to follow the patient closely. Jak Grossman MD [facility]
--- NOTE | 2018-01-24 15:08 | PN ---
DATE: 01/24/2018 SUBJECTIVE: The patient is seen lying in bed. He is awake. He is alert. He complains of cough. He reports that he does not bring up any phlegm. PHYSICAL EXAMINATION: GENERAL: An elderly male lying in bed. VITAL SIGNS: Blood pressure 134/81, heart rate 74, respiratory rate 18, temperature 97.5. HEENT: Normocephalic, atraumatic. Positive pallor. NECK: Supple. No JVD. LUNGS: Bilateral equal air entry, bilateral equal expansion. CARDIAC: S1 and S2, regular rate and rhythm. No murmur. No rub. ABDOMEN: Obese, distended, soft, nontender, bowel sounds present. EXTREMITIES: No lower extremity edema. INTAKE AND OUTPUT: 380/1650. LABORATORY DATA: WBC 15, hemoglobin 10, hematocrit 32, platelets 116. Sodium 140, potassium 5.8, chloride 112, CO2 of 14, BUN 85, creatinine 6.4, glucose 91, calcium 10.2, phosphorus was 8.0 yesterday. CURRENT MEDICATIONS: Benadryl, Colace, doxycycline 100 every 12 hours, meropenem 250 every 12 hours, Motrin p.r.n., gabapentin 100 b.i.d., amlodipine 5, PhosLo 667 t.i.d., Robitussin, Seroquel, normal saline at 60, Tylenol, Zovirax, Kayexalate 30 g given this morning. ASSESSMENT: 1. Chronic kidney disease stage V. 2. Resolved acute kidney injury. 3. Anemia of chronic kidney disease. 4. Hyperkalemia. 5. Hyperchloremic metabolic acidosis. PLAN: 1. Increase PhosLo to 2 tablets three times a day with food. 2. Start sodium bicarbonate 650 mg daily to help move potassium into the cells and correct acidosis. 3. Avoid use of Kayexalate. 4. Continue antibiotics as per ID recommendations. 5. DC IV fluids after current ____. Madina Mantilla MD
--- NOTE | 2018-01-24 17:26 | CP.PCM.PN ---
<Dionna Albrecht - Last Filed: 01/24/18 17:23> Subjective - Date & Time of Evaluation Date of Evaluation: 01/24/18 Time of Evaluation: 11:00 - Subjective Subjective: ID Progress Note -Dr Mueller Patient was seen and examined at bedside. Patient has mild complaints of dry cough. No acute or adverse events overnight, as per nursing staff. Pt denied fever, chills, shortness of breath, chest pains, abdominal pain, nausea, vomiting, diarrhea, dysuria. Objective - Vital Signs/Intake and Output Vital Signs (last 24 hours): Temp Pulse Resp BP Pulse Ox 97.5 F L 97 H 16 147/97 H 96 01/24/18 16:00 01/24/18 16:00 01/24/18 16:00 01/24/18 16:00 01/24/18 16:00 Intake and Output: 01/24/18 01/24/18 06:59 18:59 Intake Total 380 Output Total 1650 Balance -1270 - Medications Medications: Current Medications Acetaminophen (Tylenol 325mg Tab) 650 mg PO Q4H PRN; Protocol PRN Reason: Fever >100.4 F Acyclovir (Zovirax) 200 mg PO BID [facility]; Protocol Last Admin: 01/24/18 10:47 Dose: 200 mg Amlodipine Besylate (Norvasc) 5 mg PO DAILY [facility]; Protocol Last Admin: 01/24/18 10:16 Dose: 5 mg Calcium Acetate (Phoslo) 1,334 mg PO WM [facility] Last Admin: 01/24/18 13:07 Dose: 1,334 mg Diphenhydramine HCl (Benadryl) 25 mg PO HS PRN; Protocol PRN Reason: Insomnia Last Admin: 01/23/18 21:23 Dose: 25 mg Docusate Sodium (Colace) 100 mg PO DAILY [facility]; Protocol Last Admin: 01/24/18 10:16 Dose: 100 mg Doxycycline Hyclate (Doryx) 100 mg PO Q12 [facility]; Protocol Stop: 01/28/18 22:01 Last Admin: 01/24/18 10:16 Dose: 100 mg Gabapentin (Neurontin) 100 mg PO BID [facility]; Protocol Last Admin: 01/24/18 10:16 Dose: 100 mg Guaifenesin/Dextromethorphan (Robitussin Dm) 10 ml PO Q6H PRN; Protocol PRN Reason: Cough Last Admin: 01/24/18 06:05 Dose: 10 ml Meropenem 250 mg/ Sodium (Chloride) 100 mls @ 100 mls/hr IVPB Q12H [facility]; Protocol Stop: 01/28/18 06:01 Last Admin: 01/24/18 05:36 Dose: 100 mls/hr Sodium Chloride (Sodium Chloride 0.9%) 1,000 mls @ 60 mls/hr IV .[id number] [facility]; Protocol Stop: 01/24/18 18:00 Last Admin: 01/24/18 07:27 Dose: 60 mls/hr Ibuprofen (Motrin Tab) 400 mg PO BID PRN; Protocol PRN Reason: Pain, moderate (4-7) Quetiapine Fumarate (Seroquel) 25 mg PO HS [facility]; Protocol Last Admin: 01/23/18 21:23 Dose: 25 mg Sodium Bicarbonate (Sodium Bicarbonate Tab) 650 mg PO DAILY [facility] Last Admin: 01/24/18 13:07 Dose: 650 mg - Labs Labs: 01/24/18 06:30 01/24/18 06:30 - Constitutional Appears: No Acute Distress, Chronically Ill - Head Exam Head Exam: ATRAUMATIC, NORMAL INSPECTION, NORMOCEPHALIC - Eye Exam Eye Exam: EOMI, Normal appearance, PERRL - ENT Exam ENT Exam: Mucous Membranes Moist, Normal Exam - Respiratory Exam Respiratory Exam: Decreased Breath Sounds - Cardiovascular Exam Cardiovascular Exam: REGULAR RHYTHM, +S1, +S2. absent: Murmur - GI/Abdominal Exam GI & Abdominal Exam: Soft, Normal Bowel Sounds. absent: Tenderness - Psychiatric Exam Psychiatric exam: Normal Affect, Normal Mood - Skin Skin Exam: Dry, Intact, Normal Color, Warm Assessment and Plan - Assessment and Plan (Free Text) Assessment: 62 M with a PMHx of Burkitt's lymphoma diagnosed 2012, complicated by shingles infection contracted that same year that rendered patient paraplegia, with neurogenic bowel and bladder requiring chronic solorio, that was brought in to [facility] ED with complaints of a cough and inability to clear secretions x 4 days admitted for presumed CAP. Severe sepsis due to CAP ESBL UTI Burkitt's lymphoma Leukocytosis history of herpes zoster CAD HTN GERD chronic renal failure chronic anemia depression and anxiety Plan Merrem day 5, Doxycycline Day 6, Acyclovir Day 6, 7-10 course ESBL + E. Coli in urine BCx negative, Sacral wound Cx growing E.Coli PCT elevated, Legionella Ag Negative will monitor clinically Seen reviewed and discussed with Dr. Mueller <Joseph Mueller - Last Filed: 01/24/18 21:01> Objective - Vital Signs/Intake and Output Vital Signs (last 24 hours): Temp Pulse Resp BP Pulse Ox 97.5 F L 97 H 16 147/97 H 96 01/24/18 16:00 01/24/18 16:00 01/24/18 16:00 01/24/18 16:00 01/24/18 16:00 - Medications Medications: Current Medications Acetaminophen (Tylenol 325mg Tab) 650 mg PO Q4H PRN; Protocol PRN Reason: Fever >100.4 F Acyclovir (Zovirax) 200 mg PO BID [facility]; Protocol Last Admin: 01/24/18 17:37 Dose: 200 mg Amlodipine Besylate (Norvasc) 5 mg PO DAILY [facility]; Protocol Last Admin: 01/24/18 10:16 Dose: 5 mg Calcium Acetate (Phoslo) 1,334 mg PO WM [facility] Last Admin: 01/24/18 17:37 Dose: 1,334 mg Diphenhydramine HCl (Benadryl) 25 mg PO HS PRN; Protocol PRN Reason: Insomnia Last Admin: 01/23/18 21:23 Dose: 25 mg Docusate Sodium (Colace) 100 mg PO DAILY [facility]; Protocol Last Admin: 01/24/18 10:16 Dose: 100 mg Doxycycline Hyclate (Doryx) 100 mg PO Q12 [facility]; Protocol Stop: 01/28/18 22:01 Last Admin: 01/24/18 10:16 Dose: 100 mg Gabapentin (Neurontin) 100 mg PO BID [facility]; Protocol Last Admin: 01/24/18 17:37 Dose: 100 mg Guaifenesin/Dextromethorphan (Robitussin Dm) 10 ml PO Q6H PRN; Protocol PRN Reason: Cough Last Admin: 01/24/18 06:05 Dose: 10 ml Meropenem 250 mg/ Sodium (Chloride) 100 mls @ 100 mls/hr IVPB Q12H [facility]; Protocol Stop: 01/28/18 06:01 Last Admin: 01/24/18 17:57 Dose: 100 mls/hr Ibuprofen (Motrin Tab) 400 mg PO BID PRN; Protocol PRN Reason: Pain, moderate (4-7) Quetiapine Fumarate (Seroquel) 25 mg PO HS [facility]; Protocol Last Admin: 01/23/18 21:23 Dose: 25 mg Sodium Bicarbonate (Sodium Bicarbonate Tab) 650 mg PO DAILY [facility] Last Admin: 01/24/18 13:07 Dose: 650 mg - Labs Labs: 01/24/18 06:30 01/24/18 06:30 Assessment and Plan - Assessment and Plan (Free Text) Assessment: Infectious diseases Attending Physician Attestation Patient seen and examined, discussed with biomedical electronics technician. I have reviewed the patient's history of present illness, past medical, social, personal and family histories, pertinent physical exam findings, course so far in this hospital admission, pertinent laboratory and imaging results. I agree with the above findings, assessment and plan. In addition, will continue Doxycycline and Merrem day 5 to complete up to 7 days of antbiotics for severe sepsis due to HCAP. Will continue to monitor clinically.
[2018-01-25] MEDS: guaiFENesin DM 200 mg-20 mg/10 ml UD PO PRN (05:24)
[2018-01-25 06:13] LABS: HEMOGLOBIN 10.3 g/dL (14.0-18.0); MEAN CELL VOLUME 100.7 fl (80.0-105.0); MEAN CORPUSCULAR HEMOGLOBIN 33.9 pg (25.0-35.0); MEAN CORPUSCULAR HGB CONC 33.7 g/dl (31.0-37.0); MEAN PLATELET VOLUME 9.5 fl (7.0-11.0); RBC 3.04 10^6/uL (3.5-6.1); RED CELL DISTRIBUTION WIDTH 15.6 % (11.5-14.5); WHITE BLOOD COUNT 18.1 10^3/uL (4.5-11.0)
[2018-01-25 07:05] LABS: ALB/GLOB RATIO 0.9 (1.1-1.8); ALBUMIN 3.4 g/dL (3.0-4.8); CALCIUM 9.7 mg/dL (8.4-10.5)
--- NOTE | 2018-01-25 09:37 | CP.PCM.PN ---
<Dionna Albrecht - Last Filed: 01/25/18 09:34> Subjective - Date & Time of Evaluation Date of Evaluation: 01/25/18 Time of Evaluation: 09:10 - Subjective Subjective: ID Progress Note -Dr Mueller Patient was seen and examined at bedside. Patient found to be resting comfortably eating breakfast with assistance. No acute complaints at this time. Still has dry cough. No acute or adverse events overnight, as per nursing staff. Pt denied fever, chills, shortness of breath, chest pains, abdominal pain, nausea, vomiting, diarrhea, dysuria. Objective - Vital Signs/Intake and Output Vital Signs (last 24 hours): Temp Pulse Resp BP Pulse Ox 97.5 F L 97 H 16 147/97 H 96 01/24/18 16:00 01/24/18 16:00 01/24/18 16:00 01/24/18 16:00 01/24/18 16:00 Intake and Output: 01/25/18 01/25/18 06:59 18:59 Intake Total 360 Output Total 2500 Balance -2140 - Medications Medications: Current Medications Acetaminophen (Tylenol 325mg Tab) 650 mg PO Q4H PRN; Protocol PRN Reason: Fever >100.4 F Acyclovir (Zovirax) 200 mg PO BID [facility]; Protocol Last Admin: 01/24/18 17:37 Dose: 200 mg Amlodipine Besylate (Norvasc) 5 mg PO DAILY [facility]; Protocol Last Admin: 01/24/18 10:16 Dose: 5 mg Calcium Acetate (Phoslo) 1,334 mg PO WM [facility] Last Admin: 01/25/18 07:59 Dose: 1,334 mg Diphenhydramine HCl (Benadryl) 25 mg PO HS PRN; Protocol PRN Reason: Insomnia Last Admin: 01/24/18 22:48 Dose: 25 mg Docusate Sodium (Colace) 100 mg PO DAILY [facility]; Protocol Last Admin: 01/24/18 10:16 Dose: 100 mg Doxycycline Hyclate (Doryx) 100 mg PO Q12 [facility]; Protocol Stop: 01/28/18 22:01 Last Admin: 01/24/18 21:40 Dose: 100 mg Gabapentin (Neurontin) 100 mg PO BID [facility]; Protocol Last Admin: 01/24/18 17:37 Dose: 100 mg Guaifenesin/Dextromethorphan (Robitussin Dm) 10 ml PO Q6H PRN; Protocol PRN Reason: Cough Last Admin: 01/25/18 05:24 Dose: 10 ml Meropenem 250 mg/ Sodium (Chloride) 100 mls @ 100 mls/hr IVPB Q12H [facility]; Protocol Stop: 01/28/18 06:01 Last Admin: 01/25/18 05:19 Dose: 100 mls/hr Ibuprofen (Motrin Tab) 400 mg PO BID PRN; Protocol PRN Reason: Pain, moderate (4-7) Quetiapine Fumarate (Seroquel) 25 mg PO HS [facility]; Protocol Last Admin: 01/24/18 21:39 Dose: 25 mg Sodium Bicarbonate (Sodium Bicarbonate Tab) 650 mg PO DAILY [facility] Last Admin: 01/24/18 13:07 Dose: 650 mg - Labs Labs: 01/25/18 05:30 01/25/18 05:30 - Constitutional Appears: No Acute Distress, Chronically Ill - Head Exam Head Exam: ATRAUMATIC, NORMAL INSPECTION, NORMOCEPHALIC - Eye Exam Eye Exam: EOMI, Normal appearance, PERRL Pupil Exam: NORMAL ACCOMODATION, PERRL - ENT Exam ENT Exam: Mucous Membranes Moist, Normal Exam - Respiratory Exam Respiratory Exam: Decreased Breath Sounds - Cardiovascular Exam Cardiovascular Exam: REGULAR RHYTHM, +S1, +S2. absent: Murmur - GI/Abdominal Exam GI & Abdominal Exam: Soft, Normal Bowel Sounds. absent: Tenderness - Neurological Exam Neurological Exam: Alert, Awake, CN II-XII Intact, Oriented x3 - Psychiatric Exam Psychiatric exam: Normal Affect, Normal Mood - Skin Skin Exam: Dry, Intact, Normal Color, Warm Assessment and Plan - Assessment and Plan (Free Text) Assessment: 62 M with a PMHx of Burkitt's lymphoma diagnosed 2012, complicated by shingles infection contracted that same year that rendered patient paraplegia, with neurogenic bowel and bladder requiring chronic solorio, that was brought in to [facility] ED with complaints of a cough and inability to clear secretions x 4 days admitted for HCAP. Severe sepsis due to HCAP ESBL UTI Burkitt's lymphoma Leukocytosis history of herpes zoster CAD HTN GERD chronic renal failure chronic anemia depression and anxiety Plan Merrem day 6, Doxycycline & Acyclovir 7-10 course ESBL + E. Coli in urine BCx negative, Sacral wound Cx growing E.Coli PCT elevated, Legionella Ag Negative will monitor clinically Seen reviewed and discussed with Dr. Mueller <Joseph Mueller - Last Filed: 01/25/18 17:25> Objective - Vital Signs/Intake and Output Vital Signs (last 24 hours): Temp Pulse Resp BP Pulse Ox 97.3 F L 76 16 102/72 100 01/25/18 16:00 01/25/18 16:00 01/25/18 16:00 01/25/18 16:00 01/25/18 16:00 Intake and Output: 01/25/18 01/25/18 06:59 18:59 Intake Total 360 Output Total 2500 Balance -2140 - Medications Medications: Current Medications Acetaminophen (Tylenol 325mg Tab) 650 mg PO Q4H PRN; Protocol PRN Reason: Fever >100.4 F Acyclovir (Zovirax) 200 mg PO BID [facility]; Protocol Last Admin: 01/25/18 10:34 Dose: 200 mg Amlodipine Besylate (Norvasc) 5 mg PO DAILY [facility]; Protocol Last Admin: 01/25/18 10:33 Dose: 5 mg Calcium Acetate (Phoslo) 1,334 mg PO WM [facility] Last Admin: 01/25/18 12:03 Dose: 1,334 mg Diphenhydramine HCl (Benadryl) 25 mg PO HS PRN; Protocol PRN Reason: Insomnia Last Admin: 01/24/18 22:48 Dose: 25 mg Docusate Sodium (Colace) 100 mg PO DAILY [facility]; Protocol Last Admin: 01/25/18 10:32 Dose: 100 mg Doxycycline Hyclate (Doryx) 100 mg PO Q12 [facility]; Protocol Stop: 01/28/18 22:01 Last Admin: 01/25/18 10:33 Dose: 100 mg Gabapentin (Neurontin) 100 mg PO BID [facility]; Protocol Last Admin: 01/25/18 10:33 Dose: 100 mg Guaifenesin/Dextromethorphan (Robitussin Dm) 10 ml PO Q6H PRN; Protocol PRN Reason: Cough Last Admin: 01/25/18 05:24 Dose: 10 ml Meropenem 250 mg/ Sodium (Chloride) 100 mls @ 100 mls/hr IVPB Q12H [facility]; Protocol Stop: 01/28/18 06:01 Last Admin: 01/25/18 05:19 Dose: 100 mls/hr Quetiapine Fumarate (Seroquel) 25 mg PO HS [facility]; Protocol Last Admin: 01/24/18 21:39 Dose: 25 mg Sodium Bicarbonate (Sodium Bicarbonate Tab) 650 mg PO TID [facility] - Labs Labs: 01/25/18 05:30 01/25/18 05:30 Assessment and Plan - Assessment and Plan (Free Text) Assessment: Infectious diseases Attending Physician Attestation Patient seen and examined, discussed with medical videographer. I have reviewed the patient's history of present illness, past medical, social, personal and family histories, pertinent physical exam findings, course so far in this hospital admission, pertinent laboratory and imaging results. I agree with the above find ings, assessment and plan. In addition, continue Merrem and DOxycycline for HCAP, day 6 of 7 today.
--- NOTE | 2018-01-25 14:24 | PN ---
DATE: 01/25/2018 SUBJECTIVE: The patient received Kayexalate this morning for an elevated potassium level. He was started on sodium bicarbonate yesterday. He continues on IV antibiotic therapy for his ESBL urinary tract infection with E. coli and Pseudomonas. His BUN and creatinine have fallen down to baseline levels. His potassium earlier today was 5.7. The patient and I did have a discussion about dialysis and he with 100% certainty states that he has no interest in doing dialysis. MEDICATIONS: Medication list reviewed. The patient is currently on Benadryl, Colace, doxycycline, meropenem, p.r.n. Motrin, Neurontin, Norvasc, PhosLo, Robitussin, Seroquel, sodium bicarbonate, Kayexalate, Tylenol and Zovirax. PHYSICAL EXAMINATION: VITAL SIGNS: Blood pressure 123/73, temperature 97.5, respiratory rate 16 with a pulse ox of 96%. His pulse is 73. HEENT: Shows him to be normocephalic, atraumatic. Conjunctivae are pale. Sclerae are nonicteric. NECK: Supple. No neck vein distention. CHEST: Clear to auscultation and percussion. No rales, rhonchi or wheezing. CARDIOVASCULAR: Shows a regular rate and rhythm without audible murmurs, rubs or gallops. ABDOMEN: Soft. Bowel sounds normal. No rebound, guarding or masses. EXTREMITIES: Show a contracted right upper extremity. He has heel protectors on his feet bilaterally. No lower extremity edema. LABORATORY DATA AND IMAGING: CBC: White blood cell count today is 18.1 with a hemoglobin of 10.3 and a platelet count of 108,000. Chemistries show potassium of 5.7, yesterday was 5.8, over the weekend 5.3. BUN 92 with a creatinine of 6. These are at or near baseline levels. CO2 level was low at 15. The patient was started on sodium bicarbonate yesterday, this dose will be increased. Liver enzymes are normal. Albumin is 3.4. ASSESSMENT: 1. Acute renal failure, superimposed on chronic kidney disease, stage V. This appears to have resolved. However, the patient remains hyperkalemic and acidotic. We will try and treat this conservatively. I once again asked the patient whether or not he has any interest in dialysis and he states no. 2. History of Burkitt's lymphoma. 3. Do not resuscitate/do not intubate noted. 4. History of arteriosclerotic heart disease, stable. 5. History of hypertension, controlled on present medical therapy. 6. Extended-spectrum beta-lactamases, Escherichia coli and Pseudomonas in his urine, currently on antibiotic therapy. 7. Escherichia coli and sacral decubitus, currently on antibiotic therapy. 8. History of secondary hyperparathyroidism. The patient's last phosphorus level was 8. The patient remains on binder therapy, PhosLo at 1334 mg with each meal. The patient was also started on a renal diet by me today. PLAN: 1. No plans for dialysis as per previous Nephrology notes and per the patient's wish. 2. We will increase sodium bicarbonate to three times a day to help neutralize his acidosis and improve his hyperkalemia. 3. A 2 g potassium diet as part of his renal diet. 4. Complete course of antibiotic therapy for his urinary tract infection. 5. Continue comfort measures and supportive care. The patient is not doing any significant therapy in the TCU. 6. Would suggest discontinuation of Motrin in light of his hyperkalemia and acute and chronic renal failure. Jeison Ram MD
[2018-01-26 07:13] LABS: HEMOGLOBIN 10.6 g/dL (14.0-18.0); MEAN CELL VOLUME 100.6 fl (80.0-105.0); MEAN CORPUSCULAR HEMOGLOBIN 33.4 pg (25.0-35.0); MEAN CORPUSCULAR HGB CONC 33.2 g/dl (31.0-37.0); MEAN PLATELET VOLUME 9.9 fl (7.0-11.0); RBC 3.17 10^6/uL (3.5-6.1); RED CELL DISTRIBUTION WIDTH 15.6 % (11.5-14.5); WHITE BLOOD COUNT 19.4 10^3/uL (4.5-11.0)
[2018-01-26 07:21] LABS: ALB/GLOB RATIO 0.9 (1.1-1.8); ALBUMIN 3.6 g/dL (3.0-4.8); CALCIUM 10.4 mg/dL (8.4-10.5)
--- NOTE | 2018-01-26 11:25 | CP.PCM.PN ---
<Dionna Albrecht - Last Filed: 01/26/18 13:21> Subjective - Date & Time of Evaluation Date of Evaluation: 01/26/18 Time of Evaluation: 10:15 - Subjective Subjective: ID Progress Note - Dr. Mueller Patient was seen and examined at bedside. Pt being repositioned appropriately, tolerating PT, and tolerating po intake. Patient denied any acute complaints at this time. No fever, chills, shortness of breathe, chest pains, abdominal pains, nausea, vomiting, diarrhea, constipation. Objective - Vital Signs/Intake and Output Vital Signs (last 24 hours): Temp Pulse Resp BP Pulse Ox 98.7 F 106 H 20 125/77 100 01/26/18 05:10 01/26/18 10:14 01/26/18 05:10 01/26/18 10:14 01/25/18 16:00 Intake and Output: 01/26/18 01/26/18 06:59 18:59 Intake Total 240 Output Total 1520 Balance -1280 - Medications Medications: Current Medications Acetaminophen (Tylenol 325mg Tab) 650 mg PO Q4H PRN; Protocol PRN Reason: Fever >100.4 F Last Admin: 01/26/18 08:56 Dose: 650 mg Acyclovir (Zovirax) 200 mg PO BID [facility]; Protocol Last Admin: 01/26/18 10:15 Dose: 200 mg Amlodipine Besylate (Norvasc) 5 mg PO DAILY [facility]; Protocol Last Admin: 01/26/18 10:14 Dose: 5 mg Calcium Acetate (Phoslo) 1,334 mg PO WM [facility] Last Admin: 01/26/18 08:21 Dose: 1,334 mg Diphenhydramine HCl (Benadryl) 25 mg PO HS PRN; Protocol PRN Reason: Insomnia Last Admin: 01/25/18 23:05 Dose: 25 mg Docusate Sodium (Colace) 100 mg PO DAILY [facility]; Protocol Last Admin: 01/26/18 10:13 Dose: 100 mg Doxycycline Hyclate (Doryx) 100 mg PO Q12 [facility]; Protocol Stop: 01/28/18 22:01 Last Admin: 01/26/18 10:14 Dose: 100 mg Gabapentin (Neurontin) 100 mg PO BID [facility]; Protocol Last Admin: 01/26/18 10:14 Dose: 100 mg Guaifenesin/Dextromethorphan (Robitussin Dm) 10 ml PO Q6H PRN; Protocol PRN Reason: Cough Last Admin: 01/25/18 05:24 Dose: 10 ml Meropenem 250 mg/ Sodium (Chloride) 100 mls @ 100 mls/hr IVPB Q12H [facility]; Protocol Stop: 01/28/18 06:01 Last Admin: 01/26/18 06:12 Dose: 100 mls/hr Quetiapine Fumarate (Seroquel) 25 mg PO HS [facility]; Protocol Last Admin: 01/25/18 21:40 Dose: 25 mg Sodium Bicarbonate (Sodium Bicarbonate Tab) 650 mg PO TID [facility] Last Admin: 01/26/18 10:15 Dose: 650 mg - Labs Labs: 01/26/18 05:45 01/26/18 05:45 - Constitutional Appears: No Acute Distress, Chronically Ill - Head Exam Head Exam: ATRAUMATIC, NORMAL INSPECTION, NORMOCEPHALIC - Eye Exam Eye Exam: EOMI, Normal appearance, PERRL - ENT Exam ENT Exam: Mucous Membranes Moist, Normal Exam - Respiratory Exam Respiratory Exam: Clear to Ausculation Bilateral, NORMAL BREATHING PATTERN - Cardiovascular Exam Cardiovascular Exam: REGULAR RHYTHM, +S1, +S2 - GI/Abdominal Exam GI & Abdominal Exam: Soft, Normal Bowel Sounds. absent: Tenderness - Neurological Exam Neurological Exam: Alert, Awake, CN II-XII Intact, Oriented x3 - Psychiatric Exam Psychiatric exam: Normal Affect, Normal Mood - Skin Skin Exam: Dry, Intact, Normal Color, Warm Assessment and Plan - Assessment and Plan (Free Text) Assessment: 62 M with a PMHx of Burkitt's lymphoma diagnosed 2012, complicated by shingles infection contracted that same year that rendered patient paraplegia, with neurogenic bowel and bladder requiring chronic solorio, that was brought in [place] [facility] with complaints of a cough and inability to clear secretions x 4 days admitted for HCAP. Severe sepsis due to HCAP ESBL UTI Burkitt's lymphoma Leukocytosis history of herpes zoster CAD HTN GERD chronic renal failure chronic anemia depression and anxiety Plan Merrem day 7, Doxycycline & Acyclovir 7-10 course , will dc abx as of now ESBL + E. Coli in urine BCx negative, Sacral wound Cx growing E.Coli PCT elevated, Legionella Ag Negative right sacral stage 2 pressure ulcer - medihoney, then cover with a foam dressing to be changed daily. For the dry devitalized periwound, apply dimethicone (blue top) protective ointment as a protective measure daily, as per wound care will monitor clinically Seen reviewed and discussed with Dr. Mueller <Joseph Mueller - Last Filed: 01/26/18 21:12> Objective - Vital Signs/Intake and Output Vital Signs (last 24 hours): Temp Pulse Resp BP Pulse Ox 97.1 F L 106 H 20 125/77 98 01/26/18 10:00 01/26/18 10:14 01/26/18 10:00 01/26/18 10:14 01/26/18 10:00 Intake and Output: 01/26/18 01/27/18 18:59 06:59 Intake Total 700 Output Total 850 Balance -150 - Medications Medications: Current Medications Acetaminophen (Tylenol 325mg Tab) 650 mg PO Q4H PRN; Protocol PRN Reason: Fever >100.4 F Last Admin: 01/26/18 08:56 Dose: 650 mg Acyclovir (Zovirax) 200 mg PO BID [facility]; Protocol Last Admin: 01/26/18 17:30 Dose: 200 mg Amlodipine Besylate (Norvasc) 5 mg PO DAILY [facility]; Protocol Last Admin: 01/26/18 10:14 Dose: 5 mg Calcium Acetate (Phoslo) 1,334 mg PO WM [facility] Last Admin: 01/26/18 17:30 Dose: 1,334 mg Diphenhydramine HCl (Benadryl) 25 mg PO HS PRN; Protocol PRN Reason: Insomnia Last Admin: 01/25/18 23:05 Dose: 25 mg Docusate Sodium (Colace) 100 mg PO DAILY [facility]; Protocol Last Admin: 01/26/18 10:13 Dose: 100 mg Gabapentin (Neurontin) 100 mg PO BID [facility]; Protocol Last Admin: 01/26/18 17:29 Dose: 100 mg Guaifenesin/Dextromethorphan (Robitussin Dm) 10 ml PO Q6H PRN; Protocol PRN Reason: Cough Last Admin: 01/25/18 05:24 Dose: 10 ml Meropenem 250 mg/ Sodium (Chloride) 100 mls @ 100 mls/hr IVPB Q12H [facility]; Protocol Stop: 01/28/18 06:01 Last Admin: 01/26/18 17:33 Dose: 100 mls/hr Quetiapine Fumarate (Seroquel) 25 mg PO HS [facility]; Protocol Last Admin: 01/25/18 21:40 Dose: 25 mg Sodium Bicarbonate (Sodium Bicarbonate Tab) 650 mg PO TID [facility] Last Admin: 01/26/18 17:30 Dose: 650 mg - Labs Labs: 01/26/18 05:45 01/26/18 05:45 Assessment and Plan - Assessment and Plan (Free Text) Assessment: Infectious diseases Attending Physician Attestation Patient seen and examined, discussed with medical cash poster. I have reviewed the patient's history of present illness, past medical, social, personal and family histories, pertinent physical exam findings, course so far in this hospital admission, pertinent laboratory and imaging results. I agree with the above findings, assessment and plan. In addition, will d/c antibiotics - has completed 7 days of Merrem and Doxycycline for severe sepsis due to HCAP. Will continue to monitor clinically.
[2018-01-26] MEDS ORDERED: Sod Polystyrene Sulf 15 gm/60 ml Susp PO ONE (13:52)
--- NOTE | 2018-01-26 19:02 | PN ---
DATE: 01/26/2018 SUBJECTIVE: The patient is seen lying in bed. He is coughing. He ____ phlegm. He denies any pain. He has chest tightness at times. He denies any nausea, vomiting, or diarrhea. PHYSICAL EXAMINATION: GENERAL: An elderly male, lying in bed. VITAL SIGNS: Blood pressure 125/77, heart rate 106, respiratory rate 20, temperature 98.7. HEENT: Normocephalic, atraumatic. Positive pallor. NECK: Supple. No JVD. LUNGS: Bilateral equal air entry, bilateral rhonchi, no rales. CARDIAC: S1 and S2, regular rate and rhythm. No murmur. No rub. ABDOMEN: Obese, distended, soft, nontender, bowel sounds present. EXTREMITIES: No lower extremity edema. INTAKE AND OUTPUT: 240/1520?. LABORATORY DATA: WBC 19, hemoglobin 10.6, hematocrit 31.9, and platelets 122. Sodium 139, potassium 5.9, chloride 109, CO2 of 16, BUN 97, creatinine 6.2, glucose 82, calcium 10.4, phosphorus was 9.2, magnesium 1.8. Albumin 6.6. CURRENT MEDICATIONS: Benadryl, Colace, meropenem 250 every 12 hours, Neurontin, amlodipine 5, PhosLo 2 tablets three times a day with food, Robitussin, Seroquel, sodium bicarbonate 650 mg daily, increased yesterday, Tylenol, and Zovirax. ASSESSMENT: 1. Hyperkalemia, no choice with Kayexalate. 2. Severe hyperphosphatemia. 3. Advanced chronic kidney disease stage V. 4. Extended-spectrum beta-lactamases urinary tract infection. 5. Anemia of chronic disease. 6. Secondary hyperparathyroidism. PLAN: 1. Kayexalate 30 g today. 2. Strict low potassium, low phosphorus renal diet. 3. Continue antibiotics. 4. Continue supportive care. Madina Mantilla MD
[2018-01-26] MEDS: guaiFENesin DM 200 mg-20 mg/10 ml UD PO PRN (21:29)
--- NOTE | 2018-01-26 22:41 | CON ---
DATE: 01/26/2018 Shortly, the patient is a 62-year-old male, multiple medical issues including paraplegia, Burkitt lymphoma, hypertension, GERD, renal failure, depression and anxiety. The patient was admitted on the medical side for evaluation of cough. Psych consult was called after the patient was transferred to Transitional Care Unit because the patient was taking psychotropic medications. The patient was seen and examined. The patient presented relatively well. The patient seems to be a reliable historian. The patient said that he is on Seroquel for many years. The patient was prescribed Seroquel by his primary care physician at [facility]. The patient reported that he had history of mood swings and difficulty to fall asleep, that is why this medication was prescribed to him, the patient wants to continue on that medication. The patient reported that he has followup appointment at [facility] and also with Dr. Grossman. Besides that, the patient reported that he has depressed mood which is expected because the patient has multiple medical issues, paraplegia. The patient denied any thoughts of harming himself or others. Denied any psychotic symptoms. MEDICATIONS: Reviewed. From the psychiatric standpoint, the patient is on Seroquel 25 mg at the nighttime. Collaterals were obtained from the patient's family, the patient's . The patient has depressive mood due to general medical condition but never verbalized any thoughts of killing himself. VITAL SIGNS: Stable. LABORATORY DATA: Reviewed. WBC 19.4, hemoglobin and hematocrit of 10.6 and 31.9. Coagulation reviewed. Blood reviewed. Chemistry reviewed. Potassium 5.9. Urine reviewed, most recent was from 01/18/2018, was leukocyte esterase large, E. coli was positive. PAST PSYCHIATRIC HISTORY: The patient denied ever being admitted to the psychiatric inpatient unit. Denied history of suicidal attempts. MENTAL STATUS EXAMINATION: The patient presented to be alert and oriented, pleasant. Mood described as sad. Affect was constricted but reactive. Mood congruent. Thought process seems to be concrete. Thought content, the patient denied visual, auditory or tactile hallucinations. Denied paranoid ideation. The patient denied thoughts of harming himself or others. Denied intents or plan. Insight and judgment seem to be fair. Impulses are well controlled. IMPRESSION: Rule out mood disorder due to general medical condition. Multiple medical issues. PLAN: We will continue Seroquel. We will continue current management. The patient posed no imminent danger to self or others. Has followup appointment with primary care physician. The patient contracted for safety. This telegraphic typewriter repairer will sign off. Please continue all current medications. Thank you very much for letting me participate in care of your patient. Jolene Bentley MD
[2018-01-27 07:17] LABS: HEMOGLOBIN 10.4 g/dL (14.0-18.0); MEAN CORPUSCULAR HEMOGLOBIN 33.4 pg (25.0-35.0); MEAN CORPUSCULAR HGB CONC 33.4 g/dl (31.0-37.0); MEAN PLATELET VOLUME 9.8 fl (7.0-11.0); RBC 3.11 10^6/uL (3.5-6.1); RED CELL DISTRIBUTION WIDTH 15.8 % (11.5-14.5); WHITE BLOOD COUNT 15.3 10^3/uL (4.5-11.0)
[2018-01-27 07:27] LABS: ALB/GLOB RATIO 0.9 (1.1-1.8); ALBUMIN 3.4 g/dL (3.0-4.8); CALCIUM 9.5 mg/dL (8.4-10.5)
--- NOTE | 2018-01-27 09:14 | PN ---
DATE: 01/27/2018 SUBJECTIVE: The patient is in bed, in no acute distress. PHYSICAL EXAMINATION: VITAL SIGNS: Temperature of 97, blood pressure is 125/70 and respiratory rate of 20. HEENT: Unremarkable. NECK: Supple. LUNGS: Have decreased breath sounds. HEART: Normal S1 and S2. ABDOMEN: Soft and nontender. LABORATORY EXAMINATION: Reveals the patient's white count of 15,300, hemoglobin of 10 and platelets of 114. Chemistries reveals a BUN of 98 and creatinine 6.2. ASSESSMENT AND PLAN: This is a 62-year-old with Burkitt's lymphoma diagnosed in 2012, complicated by shingles and zoster and the patient has paraplegia, neurogenic bladder and bowel requiring chronic Suazo catheter and with severe sepsis due to a healthcare-associated pneumonia with extended-spectrum beta-lactamases urinary tract infection and Burkitt's lymphoma, leukocytosis, herpes zoster, completed 7 days of meropenem, doxycycline and acyclovir and blood cultures are negative and currently now review of medications reveals the patient to be on the acyclovir p.o. The patient is at risk for developing nosocomial infections. Rolly Hand MD
--- NOTE | 2018-01-27 18:17 | PN ---
DATE: 01/27/2018 SUBJECTIVE: The patient is seen lying in bed. He is awake, he is alert, he is comfortable. He has a cough. He denies any pain. PHYSICAL EXAMINATION: GENERAL: Elderly male lying in bed. VITAL SIGNS: Blood pressure 125/84, heart rate 82, respiratory rate 20, temperature 97.5. HEENT: Normocephalic, atraumatic, positive pallor. NECK: Supple. No JVD. CARDIOPULMONARY: S1 and S2, regular rate and rhythm. No murmur. No rub. LUNGS: Bilateral equal entry, bilateral rhonchi. ABDOMEN: Obese, distended, soft, nontender, bowel sounds present. EXTREMITIES: No lower extremity edema. LABORATORY DATA: WBC 15, hemoglobin 10, hematocrit 31, platelets 114. Sodium 137, potassium 5.1, chloride 106, CO2 15, BUN 98, creatinine 6.2, glucose 86, calcium 9.5, phosphorus 9.2 yesterday. CURRENT MEDICATIONS: Benadryl, Colace, gabapentin, amlodipine, PhosLo, sodium bicarbonate 650 t.i.d., Tylenol, Zovirax. ASSESSMENT: 1. Advanced chronic kidney disease stage V, stable. 2. Hyperkalemia, resolved. 3. Anemia of chronic kidney disease. 4. Non anion gap metabolic acidosis. 5.. Escherichia coli wound infection, Escherichia coli urinary tract infection, complete antibiotics. PLAN: 1. 62 g potassium renal diet. 2. Continue sodium bicarbonate 650 t.i.d. 3. No plans for renal replacement therapy. Madina Mantilla MD
[2018-01-28 06:19] VITALS: BP 100/65; RESP 18; TEMP 97.4; O2SAT 96
[2018-01-28 07:05] LABS: HEMOGLOBIN 9.8 g/dL (14.0-18.0); MEAN CORPUSCULAR HEMOGLOBIN 33.3 pg (25.0-35.0); MEAN CORPUSCULAR HGB CONC 33.3 g/dl (31.0-37.0); MEAN PLATELET VOLUME 9.8 fl (7.0-11.0); RBC 2.94 10^6/uL (3.5-6.1); RED CELL DISTRIBUTION WIDTH 15.5 % (11.5-14.5); WHITE BLOOD COUNT 13.9 10^3/uL (4.5-11.0)
[2018-01-28 07:13] LABS: ALB/GLOB RATIO 0.8 (1.1-1.8); ALBUMIN 3.2 g/dL (3.0-4.8); CALCIUM 9.7 mg/dL (8.4-10.5)
[2018-01-28 10:02] VITALS: PULSE 81
--- NOTE | 2018-01-28 14:56 | CP.PCM.PN ---
<Dionna Albrecht - Last Filed: 01/28/18 14:53> Subjective - Date & Time of Evaluation Date of Evaluation: 01/28/18 Time of Evaluation: 10:30 - Subjective Subjective: ID Progress Note - Dr. Mueller Patient was seen and examined at bedside. Pt resting comfortably. Patient denied any acute complaints at this time. No fever, chills, shortness of breathe, chest pains, abdominal pains, nausea, vomiting, diarrhea, constipation. Objective - Vital Signs/Intake and Output Vital Signs (last 24 hours): Temp Pulse Resp BP Pulse Ox 97.4 F L 81 18 100/65 96 01/28/18 06:00 01/28/18 09:58 01/28/18 06:00 01/28/18 09:58 01/28/18 06:00 Intake and Output: 01/28/18 01/28/18 06:59 18:59 Intake Total 720 Output Total 1100 Balance -380 - Medications Medications: Current Medications Acetaminophen (Tylenol 325mg Tab) 650 mg PO Q4H PRN; Protocol PRN Reason: Fever >100.4 F Last Admin: 01/26/18 08:56 Dose: 650 mg Acyclovir (Zovirax) 200 mg PO BID KEITH; Protocol Last Admin: 01/28/18 09:59 Dose: 200 mg Amlodipine Besylate (Norvasc) 5 mg PO DAILY KEITH; Protocol Last Admin: 01/28/18 09:58 Dose: 5 mg Calcium Acetate (Phoslo) 1,334 mg PO WM KEITH Last Admin: 01/28/18 12:25 Dose: 1,334 mg Diphenhydramine HCl (Benadryl) 25 mg PO HS PRN; Protocol PRN Reason: Insomnia Last Admin: 01/27/18 21:04 Dose: 25 mg Docusate Sodium (Colace) 100 mg PO DAILY KEITH; Protocol Last Admin: 01/28/18 09:57 Dose: Not Given Gabapentin (Neurontin) 100 mg PO BID KEITH; Protocol Last Admin: 01/28/18 09:58 Dose: 100 mg Guaifenesin/Dextromethorphan (Robitussin Dm) 10 ml PO Q6H PRN; Protocol PRN Reason: Cough Last Admin: 01/26/18 21:29 Dose: 10 ml Quetiapine Fumarate (Seroquel) 25 mg PO HS KEITH; Protocol Last Admin: 01/27/18 21:04 Dose: 25 mg Sodium Bicarbonate (Sodium Bicarbonate Tab) 650 mg PO BID KEITH - Labs Labs: 01/28/18 06:30 01/28/18 06:30 - Constitutional Appears: No Acute Distress - Head Exam Head Exam: ATRAUMATIC, NORMAL INSPECTION, NORMOCEPHALIC - Eye Exam Eye Exam: EOMI, Normal appearance, PERRL Pupil Exam: NORMAL ACCOMODATION, PERRL - ENT Exam ENT Exam: Mucous Membranes Moist, Normal Exam - Respiratory Exam Respiratory Exam: Decreased Breath Sounds - Cardiovascular Exam Cardiovascular Exam: REGULAR RHYTHM, +S1, +S2. absent: Murmur - GI/Abdominal Exam GI & Abdominal Exam: Soft, Normal Bowel Sounds. absent: Tenderness - Neurological Exam Neurological Exam: Alert, Awake, CN II-XII Intact - Psychiatric Exam Psychiatric exam: Normal Affect, Normal Mood Assessment and Plan - Assessment and Plan (Free Text) Assessment: 62 M with a PMHx of Burkitt's lymphoma diagnosed 2012, complicated by shingles infection contracted that same year that rendered patient paraplegia, with neurogenic bowel and bladder requiring chronic solorio, that was brought in to [facility] ED with complaints of a cough and inability to clear secretions x 4 days admitted for HCAP. Severe sepsis due to HCAP ESBL UTI Burkitt's lymphoma Leukocytosis history of herpes zoster CAD HTN GERD chronic renal failure chronic anemia depression and anxiety Plan ESBL + E. Coli in urine BCx negative, Sacral wound Cx growing E.Coli PCT elevated, Legionella Ag Negative right sacral stage 2 pressure ulcer - medihoney, then cover with a foam dressing to be changed daily. For the dry devitalized periwound, apply dimethicone (blue top) protective ointment as a protective measure daily, as per wound care Completed abx course, monitoring off antiobiotics will monitor clinically Seen reviewed and discussed with Dr. Mueller <Joseph Mueller - Last Filed: 01/28/18 18:17> Objective - Vital Signs/Intake and Output Vital Signs (last 24 hours): Temp Pulse Resp BP Pulse Ox 97.4 F L 81 18 100/65 96 01/28/18 06:00 01/28/18 09:58 01/28/18 06:00 01/28/18 09:58 01/28/18 06:00 Intake and Output: 01/28/18 01/28/18 06:59 18:59 Intake Total 720 700 Output Total 1100 750 Balance -380 -50 - Labs Labs: 01/28/18 06:30 01/28/18 06:30 Assessment and Plan - Assessment and Plan (Free Text) Assessment: Infectious diseases Attending Physician Attestation Patient seen and examined, discussed with medical policy specialist. I have reviewed the patient's history of present illness, past medical, social, personal and family histories, pertinent physical exam findings, course so far in this hospital admission, pertinent laboratory and imaging results. I agree with the above findings, assessment and plan. In addition, will d/c antibiotics - has completed 7 days of Merrem and Doxycycline for severe sepsis due to HCAP. Monitor off antibiotics.
--- NOTE | 2018-01-28 16:18 | PN ---
DATE: 01/28/2018 SUBJECTIVE: The patient is seen, lying in bed. He is awake, he is alert, he is comfortable. He has a cough. PHYSICAL EXAMINATION: GENERAL: An elderly male, lying in bed. VITAL SIGNS: Blood pressure 100/65, heart rate 86, respiratory rate 18, and temperature 97.4. HEENT: Normocephalic, atraumatic, positive pallor. NECK: Supple, no JVD. LUNGS: Bilateral equal air entry, bilateral equal expansion. EXTREMITIES: No lower extremity edema. INTAKE AND OUTPUT: 1060/1800. LABORATORY DATA: WBC 13.4, hemoglobin 9.8, hematocrit 29, platelets 103. Sodium 136, potassium 4.5, chloride 105, CO2 of 16, BUN 14, creatinine 6.2, glucose 79, calcium 9.7, and albumin 3.2. CURRENT MEDICATIONS: Gabapentin 100 b.i.d., amlodipine 5, PhosLo 2 tablets at meals, Seroquel, and sodium bicarbonate 650 t.i.d. ASSESSMENT: 1. Advanced chronic kidney disease, stage V. 2. Hyperkalemia, resolved. 3. Anemia of chronic kidney disease. 4. History of Burkitt's lymphoma. 5. History of zoster complication/paraparesis. PLAN: 1. Change sodium bicarbonate to 650 mg b.i.d. 2. Renal parameters are stable. 3. Discharge planning. Madina Mantilla MD
== END 2018-01-28 15:34 | disposition home or self-care (01) | DRG 871 ==
LOC: TRCU 20:15
PROVIDERS: ADMIT Internal Medicine; ATTEND Internal Medicine
PROC: F07Z9FZ Gait Training/Functional Ambulation Treatment using Assistive, Adaptive, Supportive or Protective Equipment (ICD-10-PCS; principal; 2018-01-22)
PROC: F08Z4FZ Home Management Treatment using Assistive, Adaptive, Supportive or Protective Equipment (ICD-10-PCS; 2018-01-22)
DX: A41.9 Sepsis, unspecified organism (principal); J18.9 Pneumonia, unspecified organism; C83.70 Burkitt lymphoma, unspecified site; N39.0 Urinary tract infection, site not specified; N18.5 Chronic kidney disease, stage 5; I12.0 Hypertensive chronic kidney disease with stage 5 chronic kidney disease or end stage renal disease; G82.20 Paraplegia, unspecified; N25.81 Secondary hyperparathyroidism of renal origin; E87.2 Acidosis; R65.20 Severe sepsis without septic shock; D63.1 Anemia in chronic kidney disease; B96.20 Unspecified Escherichia coli [E. coli] as the cause of diseases classified elsewhere; L89.152 Pressure ulcer of sacral region, stage 2; I25.10 Atherosclerotic heart disease of native coronary artery without angina pectoris; Y95 Nosocomial condition; Z66 Do not resuscitate; E87.5 Hyperkalemia; K21.9 Gastro-esophageal reflux disease without esophagitis; E83.39 Other disorders of phosphorus metabolism; N31.9 Neuromuscular dysfunction of bladder, unspecified; F32.9 Major depressive disorder, single episode, unspecified; F41.9 Anxiety disorder, unspecified